=== PATIENT | male | born 1955 | race Caucasian/White ===

== ENCOUNTER 2020-06-05 13:10 | Emergency (ER) | payer MEDICARE, OTHER ==
[~2020-06-05] VITALS: Ht 177.8 cm; Wt 83.5 kg
[2020-06-05 13:54] LABS: Basophils # (auto) 0 10 ^3/uL (0-0.2); Basophils % (auto) 0.3 % (0.0-2.0); Eosinophils # (auto) 0.1 10 ^3/uL (0-0.8); Eosinophils % (auto) 0.7 % (0.0-7.0); Hematocrit 45.3 % (41.0-53.0); Hemoglobin 14.7 g/dL (13.5-17.5); Lymphocytes # (auto) 2.2 10 ^3/uL (0.4-5.4); Lymphocytes % (auto) 24.2 % (10.0-50.0); Mean Corpuscular Hemoglobin 29.7 pg (28.0-32.0); Mean Corpuscular Hgb Conc. 32.5 g/dL (32.0-36.0); Mean Corpuscular Volume 91.3 fL (80.0-100.0); Monocytes # (auto) 0.4 10 ^3/uL (0-1.3); Monocytes % (auto) 4.8 % (0.0-12.0); Neutrophils # (auto) 6.3 10 ^3/uL (1.6-8.6); Platelet Count (auto) 217 10^3/uL (140-450); Red Blood Cells 4.97 10^6/uL (4.5-5.90); Red Cell Distribution Width 14.1 % (11.8-14.3)
[2020-06-05 14:08] LABS: Albumin 3.3 g/dL (3.4-5.0); Calcium 8.8 mg/dL (8.5-10.1)
[2020-06-05] MEDS ORDERED: SODIUM CHLORIDE 0.9% 1,000 ML IV ONE (14:11)
[2020-06-05 14:12] LABS: BUN/Creatinine Ratio 13.9; Bilirubin, Total 0.7 mg/dL (0.2-1.0); Total Protein 6.4 g/dL (6.4-8.2)
[2020-06-05] MEDS ORDERED: MORPHINE SULFATE 4 MG/ML SYR/VIAL IV ONE (14:15)
[2020-06-05] MEDS ORDERED: METOCLOPRAMIDE HCL 5MG/ml INJ 2ml VIAL IV ONE (14:15)
[2020-06-05 15:04] LABS: Magnesium 2.2 mg/dL (1.6-2.6)
[2020-06-05 15:05] VITALS: BP 99/65
== END 2020-06-05 18:30 | disposition home or self-care (01) ==
LOC: ER 13:10
DX: K59.8 Other specified functional intestinal disorders (principal); M94.0 Chondrocostal junction syndrome [Tietze]; E11.9 Type 2 diabetes mellitus without complications; E44.1 Mild protein-calorie malnutrition; Z98.84 Bariatric surgery status
CPT/HCPCS: 36415; 71046; 74176; 80053; 83690; 83735; 84443; 85025; 96361; 96374; 96375; 99285; J2270; J2765; J7030; 93005

== ENCOUNTER 2020-12-24 06:58 | Inpatient (IN) | payer MEDICARE, OTHER ==
[~2020-12-24] VITALS: Ht 177.8 cm; Wt 84.9 kg
[~2020-12-24 06:58] MED LIST: ALLO100T PO; ATOR10TA52 PO; DULO20CA PO; FAMO-12 PO; LISI-646 PO; METH750T3 PO; METO-6 PO; OMEP20TA PO; PERCOT PO; PREG100C PO
[2020-12-24] MEDS ORDERED: HEPARIN SODIUM (PORCINE) 5000 UNITS/ML 1ML VIAL ONE (07:42)
[2020-12-24] MEDS ORDERED: fentaNYL CITRATE 100 MCG/2 ML VL ONE (07:42)
[2020-12-24] MEDS ORDERED: VERAPAMIL 2.5MG/ML INJ 2ML VIAL IV ONE (07:42)
[2020-12-24] MEDS ORDERED: ANGIOMAX 250 MG VIAL IV ONE (07:42)
[2020-12-24] MEDS ORDERED: SODIUM CHL 0.9% 0 ML ONE (07:43)
[2020-12-24] MEDS ORDERED: MIDAZOLAM HCL 1MG/1ML-2 ML VIAL ONE (07:43)
[2020-12-24] MEDS ORDERED: LIDOCAINE 2%HCL (LOCAL ANESTH.) INJ 20ML MDV ONE (07:43)
[2020-12-24] MEDS ORDERED: IODIXANOL 320MG/ML 100ML BTL IV ONE (07:43)
[2020-12-24] MEDS ORDERED: ACETAMINOPHEN 500 MG TAB PO PRN (08:45)
[2020-12-24] MEDS ORDERED: HYDROcodone-ACET 5/325MG TAB PO PRN (08:45)
[2020-12-24] MEDS ORDERED: ONDANSETRON HCL 4 MG/2 ML VIAL IV PRN ×2 (08:45→17:15)
[2020-12-24] MEDS ORDERED: MORPHINE SULF INJ 2 MG/ML SYRINGE 1ML IV PRN (14:30)
[2020-12-24] MEDS ORDERED: NITROGLYCERIN 0.4 MG SL TAB SL PRN (14:30)
[2020-12-24] MEDS ORDERED: LORazepam 2MG/ML-1ML VIAL IV ONE (15:45)
[2020-12-24 17:13] VITALS: BP 162/100
[2020-12-24] MEDS ORDERED: DOCUSATE SOD 100 MG CAP PO PRN (17:15)
[2020-12-24] MEDS ORDERED: ASPirin-EC 81 mg tab PO ONE (17:15)
[2020-12-24] MEDS ORDERED: ALBUTEROL SULF 2.5 MG/0.5ML(0.5%) NEB SOLN NEB PRN (17:15)
[2020-12-24] MEDS ORDERED: IPRATROPIUM BROM 0.5 MG/2.5ML INH SOL NEB PRN (17:15)
[2020-12-24 18:15] VITALS: BP 162/100
[2020-12-24 18:48] LABS: Basophils # (auto) 0.1 10 ^3/uL (0-0.2); Basophils % (auto) 0.6 % (0.0-2.0); Eosinophils # (auto) 0.3 10 ^3/uL (0-0.8); Eosinophils % (auto) 3.1 % (0.0-7.0); Hematocrit 43.3 % (41.0-53.0); Hemoglobin 14.7 g/dL (13.5-17.5); Lymphocytes # (auto) 2.9 10 ^3/uL (0.4-5.4); Lymphocytes % (auto) 31.9 % (10.0-50.0); Mean Corpuscular Hemoglobin 30.9 pg (28.0-32.0); Mean Corpuscular Volume 90.9 fL (80.0-100.0); Monocytes # (auto) 0.6 10 ^3/uL (0-1.3); Monocytes % (auto) 6.3 % (0.0-12.0); Neutrophils # (auto) 5.2 10 ^3/uL (1.6-8.6); Neutrophils % (auto) 58.1 % (37.0-80.0); Nucleated Red Blood Cells % 0.1 %; Platelet Count (auto) 202 10^3/uL (140-450); Red Blood Cells 4.76 10^6/uL (4.5-5.90); Red Cell Distribution Width 13.5 % (11.8-14.3)
[2020-12-24 19:08] LABS: Potassium 3.9 mmol/L (3.5-5.1)
[2020-12-24 19:17] LABS: Albumin 3.2 g/dL (3.4-5.0); BUN/Creatinine Ratio 14.7; Bilirubin, Total 0.6 mg/dL (0.2-1.0); Calcium 8.9 mg/dL (8.5-10.1); Total Protein 6.5 g/dL (6.4-8.2)
[2020-12-24 20:00] VITALS: BP 150/86
[2020-12-24 20:58] VITALS: BP 162/100
[2020-12-24 21:21] LABS: % Iron Saturation 22.6 % (20-55)
[2020-12-24 22:00] VITALS: BP 146/89
[2020-12-24] MEDS ORDERED: PREGABALIN 25 MG CAP PO SCH (22:00)
[2020-12-24] MEDS ORDERED: ATORVASTATIN 20 MG TAB PO SCH (22:00)
[2020-12-25] MEDS ORDERED: ASPirin-EC 81 mg tab PO SCH (10:00)
== END 2020-12-25 01:26 | disposition short-term general hospital (02) | DRG 66 ==
LOC: CATH 06:58 → TELE 06:59 → TELE-CENTR 16:32
PROVIDERS: ADMIT Internal Medicine; ATTEND Internal Medicine
PROC: 4A023N7 Measurement of Cardiac Sampling and Pressure, Left Heart, Percutaneous Approach (ICD-10-PCS; principal; 2020-12-24)
PROC: B211YZZ Fluoroscopy of Multiple Coronary Arteries using Other Contrast (ICD-10-PCS; 2020-12-24)
PROC: B215YZZ Fluoroscopy of Left Heart using Other Contrast (ICD-10-PCS; 2020-12-24)
DX: I63.9 Cerebral infarction, unspecified (principal); I25.119 Atherosclerotic heart disease of native coronary artery with unspecified angina pectoris; E11.9 Type 2 diabetes mellitus without complications; E78.5 Hyperlipidemia, unspecified; F17.200 Nicotine dependence, unspecified, uncomplicated; F32.9 Major depressive disorder, single episode, unspecified; G25.81 Restless legs syndrome; G47.00 Insomnia, unspecified; H53.461 Homonymous bilateral field defects, right side; H53.462 Homonymous bilateral field defects, left side; I10 Essential (primary) hypertension; J32.9 Chronic sinusitis, unspecified; Z79.82 Long term (current) use of aspirin; Z79.84 Long term (current) use of oral hypoglycemic drugs; Z79.899 Other long term (current) drug therapy; Z82.49 Family history of ischemic heart disease and other diseases of the circulatory system; Z83.3 Family history of diabetes mellitus; Z98.84 Bariatric surgery status; Z20.822 Contact with and (suspected) exposure to COVID-19
CPT/HCPCS: 36415; 70450; 70551; 71045; 80053; 80061; 82728; 83036; 83540; 83550; 85025; 93458; 93886; 94640; 99152; G0378; J2250; Q9967

== ENCOUNTER 2024-12-27 11:26 | Inpatient (IN) | payer MEDICARE, OTHER ==
[~2024-12-27] VITALS: Ht 177.8 cm; Wt 88.0 kg
[~2024-12-27 11:26] MED LIST changes: -LISI-646 PO; +LISI20TA56 PO; +METH-1182 PO; -METH750T3 PO
--- NOTE | 2024-12-27 11:40 | ED.PDOC ---
SOB-HPI HPI Comments 69 year old male presents to the ED with chief complaint of SOB. Patient reports that he has been experiencing SOB with associated cough for the past month. Patient relays that his PCP had prescribed him antibiotics, which relieved his symptoms temporarily, however, it has now come back again, worsening over time. Patient denies any chest pain, headache, fever, chills, hemoptysis, dizziness, or N/V. Time Seen by MD: 11:38 Reviewed notes: Nurses Notes, Medications, Allergies Information Source: Patient Mode of Arrival: Ambulatory Severity: Moderate Timing: Months Duration: Since onset Context: At Rest PE Risk Factors: None History of: None Prehospital treatment: None Modifying Factors: Nothing Associated Signs and Symptoms: Cough If cough with SOB: Productive Past Medical History PAST MEDICAL HISTORY: DM, HTN Surgical History: Denies all surgeries Family History Family History: Reviewed,noncontributory to illness Social History Smoker: Non-Smoker Alcohol: Denies ETOH Use Drugs: Marijuana Lives In: Home Constitutional: denies: chills, diaphoresis, fatigue, fever, malaise, sweats, weakness, others EENTM: denies: blurred vision, double vision, ear bleeding, ear discharge, ear drainage, ear pain, ear ringing, eye pain, eye redness, hearing loss, mouth pain, mouth swelling, nasal discharge, nose bleeding, nose congestion, nose pain, photophobia, tearing, throat pain, throat swelling, voice changes, others Respiratory: reports: cough, shortness of breath, SOB with excertion; denies: hemoptysis, orthopnea, SOB at rest, stridor, wheezing, others Cardiovascular: denies: chest pain, dizzy spells, diaphoresis, Dyspnea on exertion, edema, irregular heart beat, left arm pain, lightheadedness, palpitations, PND, syncope, others Gastrointestinal: denies: abdomen distended, abdominal pain, blood streaked bowels, constipated, diarrhea, dysphagia, difficulty swallowing, hematemesis, melena, nausea, poor appetite, poor fluid intake, rectal bleeding, rectal pain, vomiting, others Genitourinary: denies: burning, dysuria, flank pain, frequency, hematuria, incontinence, penile discharge, penile sore, pain, testicle pain, testicle swelling, urgency, others Neurological: denies: dizziness, fainting, headache, left sided numbness, left sided weakness, numbness, paresthesia, pre-existing deficit, right sided numbness, right sided weakness, seizure, speech problems, tingling, tremors, weakness, others Musculoskeletal: denies: back pain, gout, joint pain, joint swelling, muscle pain, muscle stiffness, neck pain, others Integumetry: denies: bruises, change in color, change in hair/nails, dryness, laceration, lesions, lumps, rash, wounds, others Allergic/Immunocompromised: denies: Difficulty Healing, Frequent Infections, Hives, Itching, others Hematologic/Lymphatic: denies: anemia, blood clots, easy bleeding, easy bruising, swollen glands, others Endocrine: denies: excessive hunger, excessive sweating, excessive thirst, excessive urination, flushing, intolerance to cold, intolerance to heat, unexplained weight gain, unexplained weight loss, others Psychiatric: denies: anxiety, bipolar disorder, depression, hopeless, panic disorder, schizophrenia, sleepless, suicidal, others All Other Systems: Reviewed and Negative Physical Exam General Appearance: Moderate Distress, No Apparent Distress, Normal HEENT: Normal ENT Inspection, PERRL/EOMI Neck: Full Range of Motion, Non-Tender, Normal, Normal Inspection Respiratory: Accessory Muscle Use, Chest Non-Tender, Other (Coarse breath sounds) Cardiovascular: No Edema, No JVD, No Murmur, No Gallop, Normal Peripheral Pulses, Regular Rate/Rhythm Breast Exam: Deferred Gastrointestinal: No Organomegaly, Non Tender, No Pulsatile Mass, Normal Bowel Sounds, Soft Genitalia: Deferred Pelvic: Deferred Rectal: Deferred Extremities: No calf tenderness, Normal capillary refill, Normal inspection, Normal range of motion, Non-tender, No pedal edema Musculoskeletal : Apperance: Normal Neurologic: Alert, convenience store clerk II-XII nml as Tested, No Motor Deficits, Normal Affect, Normal Mood, No Sensory Deficits Cerebellar Function: Normal Reflexes: Normal Skin: Dry, Normal Color, Warm Peripheral Pulses: 3+ Radial (R), 3+ Radial (L) Lymphatic: No Adenopathy Was a procedure done? Was a procedure done?: No Differential Dx Differential Diagnosis: Anxiety, Asthma, Bronchitis, CHF, COPD X-Ray, Labs, Meds, VS Vital Signs Date Time Temp Pulse Resp B/P (MAP) Pulse Ox O2 Delivery O2 Flow Rate FiO2 12/27/24 12:15 81 16 97 Room Air 12/27/24 12:15 97.9 81 16 125/92 (103) 97 97.9 12/27/24 11:56 20 96 Nasal Cannula* 2 28 12/27/24 11:52 98.5 95 20 164/113 (130) 95 12/27/24 11:42 93 Lab Test 12/27/24 12:06 Range/Units White Blood Count 6.5 4.4-10.8 10^3/uL Red Blood Count 4.63 4.5-5.90 10^6/uL Hemoglobin 14.5 13.5-17.5 g/dL Hematocrit 43.4 41.0-53.0 % Mean Corpuscular Volume 93.9 80.0-100.0 fL Mean Corpuscular Hemoglobin 31.4 28.0-32.0 pg Mean Corpuscular Hemoglobin Concent 33.4 32.0-36.0 g/dL Red Cell Distribution Width 12.8 11.8-14.3 % Platelet Count 249 140-450 10^3/uL Mean Platelet Volume 6.7 L 6.9-10.8 fL Neutrophils (%) (Auto) 50.1 37.0-80.0 % Lymphocytes (%) (Auto) 30.6 10.0-50.0 % Monocytes (%) (Auto) 5.7 0.0-12.0 % Eosinophils (%) (Auto) 13.0 H 0.0-7.0 % Basophils (%) (Auto) 0.6 0.0-2.0 % Neutrophils # (Auto) 3.2 1.6-8.6 10 ^3/uL Lymphocytes # (Auto) 2.0 0.4-5.4 10 ^3/uL Monocytes # (Auto) 0.4 0-1.3 10 ^3/uL Eosinophils # (Auto) 0.8 0-0.8 10 ^3/uL Basophils # (Auto) 0 0-0.2 10 ^3/uL Nucleated Red Blood Cells 0.1 % Sodium Level Pending Potassium Level Pending Chloride Level Pending Carbon Dioxide Level Pending Anion Gap Pending Blood Urea Nitrogen Pending Creatinine Pending Glomerular Filtration Rate Calc Pending BUN/Creatinine Ratio Pending Serum Glucose Pending Calcium Level Pending Troponin I High Sensitivity Pending Current Medications Medications (Trade) Dose Ordered Sig/Cassia Route Start Time Stop Time Status Last Admin Methylprednisolone Sodium Succinate (Solu Medrol) 125 mg ONCE ONCE IV 12/27/24 11:45 12/27/24 11:46 DC 12/27/24 12:25 Azithromycin 250 ml @ 125 mls/hr ONCE ONCE IV 12/27/24 11:45 12/27/24 13:44 12/27/24 12:26 Ceftriaxone Sodium 50 ml @ 100 mls/hr ONCE ONCE IV 12/27/24 11:45 12/27/24 12:14 DC 12/27/24 12:26 Patient alert. Complaining of shortness a breath. Vitals stable. Answering questions. Able to complete a sentence without coughing. Inflammation in the upper airway. Was given steroid. Was given Rocephin. Was given azithromycin. WBC within normal limits. Possible pneumonitis. Possible pneumonia. Explained to the patient. Continue monitoring. Time of 1ST Reevaluation: 12:38 Reevaluation 1ST: Unchanged Patient Education/Counseling: Diagnosis, Treatment Family Education/Counseling: No Family Present Departure 1 Departure Time of Disposition: 12:33 Impression: Primary Impression: Acute respiratory distress Additional Impression: Pneumonitis Disposition: ADMITTED INPATIENT Admit to: Med Surg Condition: Guarded Critical Care Note Critical Care Time?: Yes (45 min-critical care time only) Stability Stability form required: No Heart Score Heart Score: Heart Score Response (Comments) Value History N/A 0 EKG N/A 0 Age N/A 0 Risk Factors N/A 0 Troponin N/A 0 Total 0 I personally scribed for JOLENE DIAZ MD ([email or web address]) on 12/27/24 at 11:40. Electronically submitted by Emmanuel Bishop ([email or web address]). JOLENE DIAZ MD Dec 27, 2024 11:40
--- NOTE | 2024-12-27 12:05 | DVH ---
CHEST RADIOGRAPH Indication: sob Technique: Single frontal view of the chest was obtained COMPARISON: CHEST XRAY 1 VIEW on DOS: 12/24/20 FINDINGS: Lines and Tubes: None Lungs: Clear Pleura: No effusion. No pneumothorax. Cardiomediastinal contours: Unremarkable Bones: Unremarkable IMPRESSION: No acute disease.
[2024-12-27 12:24] LABS: Basophils # (auto) 0 10 ^3/uL (0-0.2); Basophils % (auto) 0.6 % (0.0-2.0); Eosinophils # (auto) 0.8 10 ^3/uL (0-0.8); Hematocrit 43.4 % (41.0-53.0); Hemoglobin 14.5 g/dL (13.5-17.5); Lymphocytes % (auto) 30.6 % (10.0-50.0); Mean Corpuscular Hemoglobin 31.4 pg (28.0-32.0); Mean Corpuscular Hgb Conc. 33.4 g/dL (32.0-36.0); Mean Corpuscular Volume 93.9 fL (80.0-100.0); Monocytes # (auto) 0.4 10 ^3/uL (0-1.3); Monocytes % (auto) 5.7 % (0.0-12.0); Neutrophils # (auto) 3.2 10 ^3/uL (1.6-8.6); Neutrophils % (auto) 50.1 % (37.0-80.0); Nucleated Red Blood Cells % 0.1 %; Platelet Count (auto) 249 10^3/uL (140-450); Red Blood Cells 4.63 10^6/uL (4.5-5.90); Red Cell Distribution Width 12.8 % (11.8-14.3); White Blood Cell 6.5 10^3/uL (4.4-10.8)
[2024-12-27] MEDS: methylPREDNISolone SOD SUCC 125 MG/2 ML VL IV ONE (12:25)
[2024-12-27] MEDS: cefTRIAXone 1GM/50ML D5W 50 ML IV ONE (12:26)
[2024-12-27] MEDS: AZITHROMYCIN 500MG/ 250ML 250 ML IV ONE (12:26)
[2024-12-27 12:30] VITALS: PULSE 99; RESP 20; O2SAT 95
--- NOTE | 2024-12-27 12:33 | ECG ---
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
[2024-12-27 12:44] LABS: Chloride 104 mmol/L (98-107); Potassium 4.6 mmol/L (3.5-5.1); Sodium 142 mmol/L (136-145)
[2024-12-27 12:45] LABS: Anion Gap 7 (5-15); Calcium 9.7 mg/dL (8.7-10.4)
[2024-12-27 12:49] LABS: Carbon Dioxide 31 mmol/L (20-31)
[2024-12-27 12:50] LABS: BUN/Creatinine Ratio 12.5 (10.0-20.0); Blood Urea Nitrogen 15 mg/dL (9-23)
[2024-12-27 12:51] LABS: Glucose 128 mg/dL (74-106)
[2024-12-27] MEDS ORDERED: TAMS0.4C39 PO (16:41)
[2024-12-27] MEDS ORDERED: ATOR20TA50 PO (16:41)
[2024-12-27] MEDS ORDERED: CARV6.2551 PO (16:41)
[2024-12-27] MEDS ORDERED: DOCUSATE SOD 100 MG CAP PO PRN (16:45)
[2024-12-27] MEDS ORDERED: ONDANSETRON HCL 4 MG/2 ML VIAL IV PRN (16:45)
--- NOTE | 2024-12-27 17:36 | DVHHP2 ---
History of Present Illness Reason for Visit: Shortness of breath History of Present Illness Emmett Sharma is a 69-year-old male with past medical history of hypertension, hyperlipidemia, and gout who came in for shortness of breath. Patient states he began getting sick with flu like symptoms the beginning of November. He went to his primary care provider the beginning of December due to symptoms persisting. He was given a Z-pack and states at first he was feeling better then his symptoms worsened prompting him to come to the hospital. Patient states he has a productive cough, and shortness of breath. Denies any fevers, nausea, vomiting, or diarrhea. Patient's O2 sats on RA were in the 80's on arrival. he was placed on 2L NC and improved to mid 90's. On assessment patient is able to speak in full sentences, but he has a productive cough, with wheezing and rhonchi in bilateral lung hernandez. Patient has a history of diabetes, but had gastri bypass years ago, lost 70lbs and was able to stop all his diabetic medications. He recently went on Ozempic for weight loss. Cardiovascular: HTN, hyperipidemia Past Surgical History: Other (gastric bypass) Smoke: No ALCOHOL: occassional Drugs: None Lives: with Family Review of Systems Constitutional: No: Fever, Chills, Sweats, Weakness, Malaise, Other Eyes: No: Pain, Vision change, Conjunctivae inflammation, Eyelid inflammation, Other, Redness ENT: No: Ear pain, Ear discharge, Nose pain, Nose discharge, Nose congestion, Mouth pain, Mouth swelling, Throat pain, Throat swelling, Other Respiratory: Cough, Shortness of breath, SOB with excertion, Wheezing, Pleuritic Pain, Sputum; No: Dry, Hemoptysis, Wheezing, Other Cardiovascular: No: Chest Pain, Palpitations, Orthopnea, Paroxysmal Noc. Dyspnea, Edema, Lt Headedness, Other Gastrointestinal: No: Nausea, Vomiting, Abdominal Pain, Diarrhea, Constipation, Melena, Hematochezia, Other Genitourinary: No Dysuria, No Frequency, No Incontinence, No Hematuria, No Retention, No Other Musculoskeletal: No: other, neck pain, shoulder pain, arm pain, back pain, hand pain, leg pain, foot pain Skin: No: Rash, Lesions, Jaundice, Bruising, Other Neurological: No: Weakness, Numbness, Incoordination, Change in speech, Confusion, Seizures, Other Allergies: Coded Allergies: NO KNOWN ALLERGIES (Unverified , 06/05/20) Medications Current Medications Medications Dose Ordered Sig/Cassia Route Start Time Stop Time Status Last Admin Dose Admin Allopurinol 100 mg BID PO 12/27/24 22:00 UNV Patient Own Medication 30 mg DAILY PO 12/28/24 10:00 UNV Patient Own Medication 750 mg BID PO 12/27/24 22:00 UNV Patient Own Medication 20 mg QID PO 12/27/24 18:00 UNV Patient Own Medication 100 mg TID PO 12/27/24 22:00 UNV Atorvastatin Calcium 20 mg HS PO 12/27/24 22:00 UNV Patient Own Medication 1 tab BID PO 12/27/24 22:00 UNV Ipratropium [place] 0.5 mg Q6HWA NEB 12/27/24 18:00 Albuterol 2.5 mg Q6HWA NEB 12/27/24 18:00 Methylprednisolone Sodium Succinate 40 mg BID IV 12/27/24 22:00 Azithromycin 250 ml @ 125 mls/hr DAILY IV 12/28/24 10:00 Ceftriaxone Sodium 50 ml @ 100 mls/hr DAILY@09 IV 12/28/24 09:00 Sodium Chloride 10 ml Q8HR IV 12/27/24 22:00 Acetaminophen/ Hydrocodone Bitart 1 tab Q4HP PRN PO 12/27/24 16:45 Ondansetron HCl 4 mg Q4HP PRN IV 12/27/24 16:45 Docusate Sodium 100 mg BIDPRN PRN PO 12/27/24 16:45 Acetaminophen 650 mg Q6HP PRN PO 12/27/24 16:45 Exam Vital Signs Vital Signs Date Time Temp Pulse Resp B/P (MAP) Pulse Ox O2 Delivery O2 Flow Rate FiO2 12/27/24 12:30 99 20 95 Nasal Cannula* 2 28 12/27/24 12:15 97.9 125/92 (103) 97.9 General Appearance: Alert, Oriented X3, Cooperative, moderate distress HEENT: Atraumatic, PERRLA Respiratory: Other (bilateral wheezing ) Cardiovascular: Regular rate, Normal S1, Normal S2, No murmurs Abdominal: Normal bowel sounds, Soft, No tenderness, No hepatospenomegaly Extremities: No clubbing, No cyanosis, No edema, Normal pulses Skin: No rashes, No breakdown, No significant lesion Neuro: Normal gait, Normal speech, Strength at 5/5 X4 ext Psych/Mental Status: Mental status NL, Mood NL Labs/Xrays Labs Test 12/27/24 12:06 Range/Units White Blood Count 6.5 4.4-10.8 10^3/uL Red Blood Count 4.63 4.5-5.90 10^6/uL Hemoglobin 14.5 13.5-17.5 g/dL Hematocrit 43.4 41.0-53.0 % Mean Corpuscular Volume 93.9 80.0-100.0 fL Mean Corpuscular Hemoglobin 31.4 28.0-32.0 pg Mean Corpuscular Hemoglobin Concent 33.4 32.0-36.0 g/dL Red Cell Distribution Width 12.8 11.8-14.3 % Platelet Count 249 140-450 10^3/uL Mean Platelet Volume 6.7 L 6.9-10.8 fL Neutrophils (%) (Auto) 50.1 37.0-80.0 % Lymphocytes (%) (Auto) 30.6 10.0-50.0 % Monocytes (%) (Auto) 5.7 0.0-12.0 % Eosinophils (%) (Auto) 13.0 H 0.0-7.0 % Basophils (%) (Auto) 0.6 0.0-2.0 % Neutrophils # (Auto) 3.2 1.6-8.6 10 ^3/uL Lymphocytes # (Auto) 2.0 0.4-5.4 10 ^3/uL Monocytes # (Auto) 0.4 0-1.3 10 ^3/uL Eosinophils # (Auto) 0.8 0-0.8 10 ^3/uL Basophils # (Auto) 0 0-0.2 10 ^3/uL Nucleated Red Blood Cells 0.1 % Sodium Level 142 136-145 mmol/L Potassium Level 4.6 3.5-5.1 mmol/L Chloride Level 104 98-107 mmol/L Carbon Dioxide Level 31 20-31 mmol/L Anion Gap 7 5-15 Blood Urea Nitrogen 15 9-23 mg/dL Creatinine 1.20 0.700-1.30 mg/dL Glomerular Filtration Rate Calc 65 >90 mL/min BUN/Creatinine Ratio 12.5 10.0-20.0 Serum Glucose 128 H 74-106 mg/dL Calcium Level 9.7 8.7-10.4 mg/dL Troponin I High Sensitivity 3 L </=54 ng/L CHEST RADIOGRAPH FINDINGS: Lines and Tubes: None Lungs: Clear Pleura: No effusion. No pneumothorax. Cardiomediastinal contours: Unremarkable Bones: Unremarkable IMPRESSION: No acute disease. Assessment/Plan Assessment/Plan Assessment: Acute hypoxic respiratory failure, Hypertension, Hyperlipidemia, Gout, Plan: Admit to Med-Surg, IV antibiotics, Breathing treatments, IV steroids, Supplemental oxygen as needed, Home medications reconciled, Plan discussed with: Patient My Orders Orders - MERRY TIDWELL [employer]IST Procedure Category Date Status Time Allopurinol Tablet PHA 12/27/24 Logged (Zyloprim Tablet) 22:00 (Nf) Duloxetine Hcl PHA 12/28/24 Logged (Cymbalta) 10:00 (Nf) Methocarbamol PHA 12/27/24 Logged 22:00 (Nf) Omeprazole (Gnp PHA 12/27/24 Logged Omeprazole) 18:00 (Nf) Pregabalin PHA 12/27/24 Logged (Lyrica) 22:00 Atorvastatin (Lipitor) PHA 12/27/24 Logged 22:00 (Nf) Carvedilol PHA 12/27/24 Logged 22:00 Ipratropium Medneb PHA 12/27/24 In Process (Atrovent Medneb) 18:00 Albuterol Medneb PHA 12/27/24 In Process (Ventolin Medneb) 18:00 Methylprednisolone PHA 12/27/24 In Process Sod Succ (Solu Medrol 22:00 Azithromycin 500mg/ PHA 12/28/24 In Process 250ml (Zithromax 50 10:00 Ceftriaxone 1gm/50ml PHA 12/28/24 In Process D5w (Rocephin) 09:00 Code Status CODE 12/27/24 Verified 16:43 Sodium Chloride Lock PHA 12/27/24 In Process (Saline Lock Ns) 22:00 Hydrocodone-Acet PHA 12/27/24 In Process 5/325mg Tab ([place] 16:45 Ondansetron Hcl PHA 12/27/24 In Process (Zofran) 16:45 Docusate Sodium PHA 12/27/24 In Process Capsule (Colace 16:45 Complete Blood Count LAB 12/28/24 Verified 04:00 Comprehensive LAB 12/28/24 Verified Metabolic Panel 04:00 Cardiac DIET 12/27/24 Transmitted Diet-2gna,Lofat,Lochol Dinner Condition: Serious DEVIN 12/27/24 In Process 16:43 Acetaminophen Tablet PHA 12/27/24 In Process (Tylenol Tablet) 16:45 Admit ADMIT 12/27/24 Verified 16:43 Date of Service: Dec 27, 2024 Billing Provider: MERRY TIDWELL Common Visit Codes: [id number] INP/OBS CARE (MOD) MERRY TIDWELL Dec 27, 2024 17:36
[2024-12-27] MEDS: IPRATROPIUM BROM 0.5 MG/2.5ML INH SOL NEB SCH (17:47)
[2024-12-27] MEDS: ALBUTEROL SULF 2.5 MG/0.5ML(0.5%) NEB SOLN NEB SCH (17:47)
[2024-12-27 18:50] VITALS: BP 140/79; PULSE 111; RESP 18; TEMP 98.3; O2SAT 92
[2024-12-27 21:00] VITALS: BP 163/98; PULSE 111; RESP 20; TEMP 98.4; O2SAT 92
[2024-12-27] MEDS: methylPREDNISolone SOD SUCC 40 MG/ML VL IV SCH (21:46)
[2024-12-27] MEDS: SODIUM CHLOR 0.9% PF (SALINE LOCK) 10ML VIAL/SYR IV SCH (21:46)
[2024-12-27] MEDS: ATORVASTATIN 20 MG TAB PO SCH (22:00)
[2024-12-27 23:00] VITALS: BP 127/74; PULSE 117; RESP 22; TEMP 98.6; O2SAT 94
[2024-12-27 23:40] VITALS: BP 154/72; PULSE 110; RESP 19; TEMP 97.9; O2SAT 96
[2024-12-27] MEDS: ALLOPURINOL 100 MG TAB PO SCH (23:54)
[2024-12-28] VITALS (18 sets, daily range): BP systolic 133–159; BP diastolic 54–105; PULSE 85–115; RESP 18–20; TEMP 97.5–98.6; O2SAT 92–99
[2024-12-28] MEDS: ACETAMINOPHEN 325 MG TAB PO PRN (01:50)
[2024-12-28] MEDS: PREGABALIN 25 MG CAP PO SCH (06:00)
[2024-12-28 06:46] LABS: Basophils # (auto) 0 10 ^3/uL (0-0.2); Basophils % (auto) 0.1 % (0.0-2.0); Eosinophils # (auto) 0 10 ^3/uL (0-0.8); Hematocrit 43.6 % (41.0-53.0); Hemoglobin 14.1 g/dL (13.5-17.5); Lymphocytes # (auto) 1.1 10 ^3/uL (0.4-5.4); Lymphocytes % (auto) 13.8 % (10.0-50.0); Mean Corpuscular Hemoglobin 30.7 pg (28.0-32.0); Mean Corpuscular Hgb Conc. 32.5 g/dL (32.0-36.0); Mean Corpuscular Volume 94.5 fL (80.0-100.0); Monocytes # (auto) 0.2 10 ^3/uL (0-1.3); Monocytes % (auto) 2.9 % (0.0-12.0); Neutrophils # (auto) 6.9 10 ^3/uL (1.6-8.6); Neutrophils % (auto) 83.2 % (37.0-80.0); Nucleated Red Blood Cells % 0.1 %; Platelet Count (auto) 254 10^3/uL (140-450); Red Blood Cells 4.61 10^6/uL (4.5-5.90); White Blood Cell 8.3 10^3/uL (4.4-10.8)
[2024-12-28 07:03] LABS: Alanine Aminotransferase 24 U/L (7-40); Alkaline Phosphatase 112 U/L (46-116); Anion Gap 11 (5-15); Aspartate Aminotransferase 16 U/L (13-40); Bilirubin, Total 0.3 mg/dL (0.2-1.0); Blood Urea Nitrogen 18 mg/dL (9-23); Calcium 9.9 mg/dL (8.7-10.4); Carbon Dioxide 24 mmol/L (20-31); Chloride 104 mmol/L (98-107); Potassium 4.5 mmol/L (3.5-5.1); Sodium 139 mmol/L (136-145); Total Protein 6.2 g/dL (5.7-8.2)
[2024-12-28 07:05] LABS: Glucose 178 mg/dL (74-106)
[2024-12-28] MEDS: cefTRIAXone 1GM/50ML D5W 50 ML IV SCH (09:24)
[2024-12-28] MEDS: METHOCARBAMOL 500 MG TAB PO SCH (09:26)
[2024-12-28] MEDS: TAMSULOSIN HYDROCHLORIDE 0.4 MG CAP PO SCH (09:28)
[2024-12-28] MEDS: PANTOPRAZOLE 40 MG TAB PO SCH (09:28)
[2024-12-28] MEDS: DULoxetine HCL 30 MG CAP PO SCH (09:29)
[2024-12-28] MEDS: CARVEDILOL 3.125 MG TAB PO SCH (09:30)
[2024-12-28] MEDS: AZITHROMYCIN 500MG/ 250ML 250 ML IV SCH (10:00)
--- NOTE | 2024-12-28 12:22 | DVHPN2 ---
Reviewed: Care Plan, H&P, Labs, Medications, Previous Orders, Radiology Changes from previous H/P or p: No Changes Eyes: No Pain, No Vision change, No Conjunctivae inflammation, No Eyelid inflammation, No Other, No Redness ENT: No Ear pain, No Ear discharge, No Nose pain, No Nose discharge, No Nose congestion, No Mouth pain, No Mouth swelling, No Throat pain, No Throat swelling, No Other Cardiovascular: No Chest Pain, No Palpitations, No Orthopnea, No Paroxysmal Noc. Dyspnea, No Edema, No Lt Headedness, No Other Respiratory: Cough; No Dry; Shortness of breath, SOB with excertion, Wheezing; No Hemoptysis; Pleuritic Pain, Sputum; No Other Gastrointestinal: No Nausea, No Vomiting, No Abdominal Pain, No Diarrhea, No Constipation, No Melena, No Hematochezia, No Other Genitourinary: No Dysuria, No Frequency, No Incontinence, No Hematuria, No Retention, No Other Musculoskeletal: No other, No neck pain, No shoulder pain, No arm pain, No back pain, No hand pain, No leg pain, No foot pain Skin: No Rash, No Lesions, No Jaundice, No Bruising, No Other Objective Vitals Vital Signs Date Time Temp Pulse Resp B/P (MAP) Pulse Ox O2 Delivery O2 Flow Rate FiO2 12/28/24 11:50 92 18 92 12/28/24 09:30 159/102 12/28/24 08:42 98.3 98.3 12/28/24 07:25 Nasal Cannula 2.0 12/28/24 07:25 28 Intake/Output Intake and Output 12/28/24 07:00 Intake Total 750 ml Balance 750 ml Intake Oral 750 ml Medications Current Medications Medications Dose Ordered Sig/Cassia Route Start Time Stop Time Status Last Admin Dose Admin Allopurinol 100 mg BID PO 12/27/24 22:00 12/28/24 09:26 100 MG Duloxetine HCl 30 mg DAILY PO 12/28/24 10:00 12/28/24 09:29 30 MG Methocarbamol 750 mg BID PO 12/28/24 10:00 12/28/24 09:26 750 MG Pantoprazole Sodium 40 mg DAILY PO 12/28/24 10:00 12/28/24 09:28 40 MG Pregabalin 100 mg TID PO 12/28/24 06:00 Atorvastatin Calcium 20 mg HS PO 12/27/24 22:00 12/27/24 22:00 20 MG Carvedilol 6.25 mg BID PO 12/28/24 10:00 12/28/24 09:30 6.25 MG Ipratropium [place] 0.5 mg Q6HWA NEB 12/27/24 18:00 12/28/24 11:50 0.5 MG Albuterol 2.5 mg Q6HWA NEB 12/27/24 18:00 12/28/24 11:50 2.5 MG Methylprednisolone Sodium Succinate 40 mg BID IV 12/27/24 22:00 12/28/24 09:24 40 MG Azithromycin 250 ml @ 125 mls/hr DAILY IV 12/28/24 10:00 12/28/24 10:00 125 MLS/HR Ceftriaxone Sodium 50 ml @ 100 mls/hr DAILY@09 IV 12/28/24 09:00 12/28/24 09:24 100 MLS/HR Sodium Chloride 10 ml Q8HR IV 12/27/24 22:00 12/28/24 06:01 10 ML Acetaminophen/ Hydrocodone Bitart 1 tab Q4HP PRN PO 12/27/24 16:45 Ondansetron HCl 4 mg Q4HP PRN IV 12/27/24 16:45 Docusate Sodium 100 mg BIDPRN PRN PO 12/27/24 16:45 Acetaminophen 650 mg Q6HP PRN PO 12/27/24 16:45 12/28/24 01:50 650 MG Tamsulosin HCl 0.4 mg DAILY PO 12/28/24 10:00 12/28/24 09:28 0.4 MG Laboratory Results Laboratory Tests 12/28/24 05:59 Chemistry Test 12/28/24 05:59 Albumin 4.0 g/dL (3.2-4.8) Calcium Level 9.9 mg/dL (8.7-10.4) Total Protein 6.2 g/dL (5.7-8.2) LFT Test 12/28/24 05:59 Alanine Aminotransferase (ALT) 24 U/L (7-40) Alkaline Phosphatase 112 U/L (46-116) Aspartate Amino Transferase (AST) 16 U/L (13-40) Total Bilirubin 0.3 mg/dL (0.2-1.0) Labs and/or images reviewed: Labs reviewed by me, Image(s) reviewed by me Assessment/Plan Assessment/Plan Acute hypoxic respiratory failure, oxygen by nasal cannula Possible community-acquired pneumonia: Azithromycin Solu-Medrol consult for pulmonology Dr. Diaz Congestive heart failure: Consult for Hypertension, Coreg Hyperlipidemia, : Lipitor Gout, BPH: Flomax Depression: Cymbalta History of gastric bypass surgery On Ozempic for weight loss Ordered flu test Magalie test D-dimer Morbid obesity weight 82 kg Time spent 65 minutes Condition guarded Patient is full code Advanced care planning time 20 minutes Plan discussed with: Patient Date of Service: Dec 28, 2024 Billing Provider: JF ORTEGA MD Common Visit Codes: [id number] CARE 30-74 MIN JF ORTEGA MD Dec 28, 2024 12:22
--- NOTE | 2024-12-28 13:58 | DVHINCON2 ---
Date Seen: Dec 28, 2024 Referring Physician MD Osei Reason for Consultation Shortness of breath, rule out CHF History of Present Illness This is a 69-year-old male patient who presents to the emergency room with chief complaint of worsening shortness of breath. The patient reports that he initially began experiencing a cough on November 06 2024 after coming back from [place]. He reports that the cough was persistent so he finally followed up with a primary doctor on November 20, where he was prescribed steroids and antibiotics. Since then, the patient has been progressively getting worse and having worsening shortness of breath. He describes dyspnea on exertion, orthopnea, and cough. He also describes a nonproductive dry cough. Cardiology has been consulted at this time to rule out congestive heart failure. Initial twelve lead electrocardiogram reveals normal sinus rhythm with artifact seen in multiple leads. Initial troponin level was negative. No BNP was obtained at time of admission. Significant past medical history includes hypertension, dyslipidemia, CVA, type 2 diabetes mellitus, benign prostatic hyperplasia, gout, depression, skin cancer, alcohol use, and previous tobacco use. Of note, the patient was seen at this facility on 12/24/20 where he underwent a coronary angiogram with left heart catheterization and was found to have mild coronary artery disease and no catheter based intervention was deemed necessary at that time. Past Medical History Past medical history reviewed. No other significant than mentioned above. Past Surgical History Gastric bypass in 2008 Gastric bypass revision in 2022 Family History: Colon cancer G8 MOTHER FH: heart disease G8 FATHER Family History Family history reviewed. Social History Patient has a five pack-year history, quit smoking approximately 27 years ago Patient denies any illicit drug use Patient reports daily beer intake approximately 2-4 beers daily Allergies: Coded Allergies: NO KNOWN ALLERGIES (Unverified , 06/05/20) Home Meds Reported Medications Tamsulosin Hcl (Tamsulosin Hcl) 0.4 Mg Cap, 0.4 MG PO DAILY 12/27/24 Carvedilol (Carvedilol) 6.25 Mg Tab, 1 TAB PO BID 12/27/24 Atorvastatin Calcium (ATORVASTATIN CALCIUM) 20 Mg Tab, 1 TAB PO HS 12/27/24 Oxycodone W/ Acetaminophen (Percocet 5/325MG) 1 Tab Tb, 1 TAB PO QIDPRN PRN for PAIN SCALE 1 THRU 6 12/19/20 Methocarbamol (Methocarbamol) 750 Mg Tab, 750 MG PO BID 12/19/20 Famotidine (Famotidine) 20 Mg Tab, 20 MG PO BID 12/19/20 Pregabalin (Lyrica) 100 Mg Cap, 100 MG PO TID 12/19/20 Duloxetine Hcl (Cymbalta) 20 Mg Cap, 30 MG PO DAILY, CAP 12/19/20 Metoprolol Succinate (Toprol Xl) 50 Mg Tab, 100 MG PO DAILY 12/19/20 Lisinopril (Lisinopril) 20 Mg Tab, 20 MG PO DAILY 12/19/20 Allopurinol (Allopurinol) 100 Mg Tab, 100 MG PO BID 12/19/20 Omeprazole (Gnp Omeprazole) 20 Mg Tab, 20 MG PO QID 12/19/20 Discontinued Reported Medications Atorvastatin Calcium (ATORVASTATIN CALCIUM) 10 Mg Tab, 10 MG PO DAILY 12/19/20 Home Meds Home medications reviewed. Current Medications Current Medications Medications (Trade) Dose Ordered Sig/Cassia Route PRN Reason Start Time Stop Time Status Last Admin Allopurinol (Zyloprim Tablet) 100 mg BID PO 12/27/24 22:00 12/28/24 09:26 Duloxetine HCl (Cymbalta Capsule) 30 mg DAILY PO 12/28/24 10:00 12/28/24 09:29 Methocarbamol (Robaxin) 750 mg BID PO 12/28/24 10:00 12/28/24 09:26 Pantoprazole Sodium (Protonix Tablet) 40 mg DAILY PO 12/28/24 10:00 12/28/24 09:28 Pregabalin (Lyrica Capsule) 100 mg TID PO 12/28/24 06:00 Atorvastatin Calcium (Lipitor) 20 mg HS PO 12/27/24 22:00 12/27/24 22:00 Carvedilol (Coreg Tablet) 6.25 mg BID PO 12/28/24 10:00 12/28/24 09:30 Ipratropium [place] (Atrovent Medneb) 0.5 mg Q6HWA NEB 12/27/24 18:00 12/28/24 11:50 Albuterol (Ventolin Medneb) 2.5 mg Q6HWA NEB 12/27/24 18:00 12/28/24 11:50 Methylprednisolone Sodium Succinate (Solu Medrol) 40 mg BID IV 12/27/24 22:00 12/28/24 09:24 Azithromycin 250 ml @ 125 mls/hr DAILY IV 12/28/24 10:00 12/28/24 10:00 Ceftriaxone Sodium 50 ml @ 100 mls/hr DAILY@09 IV 12/28/24 09:00 12/28/24 09:24 Sodium Chloride (Saline Lock Ns) 10 ml Q8HR IV 12/27/24 22:00 12/28/24 06:01 Acetaminophen/ Hydrocodone Bitart ([place] 5/325MG Tab) 1 tab Q4HP PRN PO MODERATE PAIN (4-6 PAIN SCALE) 12/27/24 16:45 Ondansetron HCl (Zofran) 4 mg Q4HP PRN IV NAUSEA / VOMITING 12/27/24 16:45 Docusate Sodium (Colace Capsule) 100 mg BIDPRN PRN PO FOR CONSTIPATION 12/27/24 16:45 Acetaminophen (Tylenol Tablet) 650 mg Q6HP PRN PO PAIN SCALE 1-3 OR TEMP>100.4 12/27/24 16:45 12/28/24 01:50 Tamsulosin HCl (Flomax) 0.4 mg DAILY PO 12/28/24 10:00 12/28/24 09:28 Guaifenesin/ Dextromethorphan (Robitussin-Dm Liquid) 15 ml Q8HR PRN PO FOR COUGH 12/28/24 12:30 UNV Review of Systems Constitutional: No symptom reported Ears, Nose, & Throat: No symptom reported Eyes: No symptom reported Neurological: No symptoms reported Pulmonary/Respiratory: Shortness of breath, cough Cardiovascular: No symptom reported Gastrointestinal: No symptom reported Genitourinary: No symptom reported Musculoskeletal: No symptom reported Skin: No symptom reported Psychiatric: No symptom reported Endocrine: No symptom reported Hematologic/Lymphatic: No symptom reported Vital Signs Vital Signs Date Time Temp Pulse Resp B/P (MAP) Pulse Ox O2 Delivery O2 Flow Rate FiO2 12/28/24 13:06 98.6 94 18 154/105 (121) 95 98.6 12/28/24 07:25 Nasal Cannula 2.0 12/28/24 07:25 28 Physical Exam General Appearance: Cooperative. Well-developed. Well-nourished. No acute distress. Pulmonary/Respiratory: Coarse throughout. Expiratory wheezes noted Cardiovascular/Chest: Regular rate and rhythm. Peripheral Pulses: 2+ Radial (R). 2+ Radial (L). 2+ Pedal (R). 2+ Pedal (L) Abdominal Exam: Normal bowel sounds. Ankle Exam: Negative ankle edema Lower extremities: Negative lower extremity edema Neuro/Mental Status: A/OX4, coherent. Thoughts/Psych: Normal thought pattern. Appropriate mood and affect. Good judgment and insight. Appearance: No acute distress. Skin Exam: Normal inspection. Normal color. Warm and dry. Labs/Diagnostic Data Labs Test 12/28/24 05:59 12/27/24 12:06 Range/Units White Blood Count 8.3 # 4.4-10.8 10^3/uL Red Blood Count 4.61 4.5-5.90 10^6/uL Hemoglobin 14.1 13.5-17.5 g/dL Hematocrit 43.6 41.0-53.0 % Mean Corpuscular Volume 94.5 80.0-100.0 fL Mean Corpuscular Hemoglobin 30.7 28.0-32.0 pg Mean Corpuscular Hemoglobin Concent 32.5 32.0-36.0 g/dL Red Cell Distribution Width 13.0 11.8-14.3 % Platelet Count 254 140-450 10^3/uL Mean Platelet Volume 7.0 6.9-10.8 fL Neutrophils (%) (Auto) 83.2 H 37.0-80.0 % Lymphocytes (%) (Auto) 13.8 10.0-50.0 % Monocytes (%) (Auto) 2.9 0.0-12.0 % Eosinophils (%) (Auto) 0.0 0.0-7.0 % Basophils (%) (Auto) 0.1 0.0-2.0 % Neutrophils # (Auto) 6.9 1.6-8.6 10 ^3/uL Lymphocytes # (Auto) 1.1 0.4-5.4 10 ^3/uL Monocytes # (Auto) 0.2 0-1.3 10 ^3/uL Eosinophils # (Auto) 0 0-0.8 10 ^3/uL Basophils # (Auto) 0 0-0.2 10 ^3/uL Nucleated Red Blood Cells 0.1 % Sodium Level 139 136-145 mmol/L Potassium Level 4.5 3.5-5.1 mmol/L Chloride Level 104 98-107 mmol/L Carbon Dioxide Level 24 20-31 mmol/L Anion Gap 11 5-15 Blood Urea Nitrogen 18 9-23 mg/dL Creatinine 1.20 0.700-1.30 mg/dL Glomerular Filtration Rate Calc 65 >90 mL/min BUN/Creatinine Ratio 15.0 10.0-20.0 Serum Glucose 178 H 74-106 mg/dL Calcium Level 9.9 8.7-10.4 mg/dL Total Bilirubin 0.3 0.2-1.0 mg/dL Aspartate Amino Transferase (AST) 16 13-40 U/L Alanine Aminotransferase (ALT) 24 7-40 U/L Alkaline Phosphatase 112 46-116 U/L Total Protein 6.2 5.7-8.2 g/dL Albumin 4.0 3.2-4.8 g/dL Troponin I High Sensitivity 3 L </=54 ng/L Assessment Rule out structural heart disease Mild coronary artery disease Hypertension Dyslipidemia Type 2 diabetes mellitus CVA Alcohol use History of Tobacco use Plan/Recommendation We will continue with following plan/recommendations (Dr. Luu): Case discussed with . We will proceed with obtaining a transthoracic echocardiogram to evaluate cardiac function. A BNP level was ordered at time of assessment. Patient with no signs of fluid overload at time of assessment. Patient was upgraded to telemetry. A repeat chest x-ray confirms no acute cardiopulmonary disease. Pending pulmonary consultation. Thank you for allowing us to care for this patient. Please call with any questions or co ncerns. Critical care time spent: 42 minutes This medical document was created using an electronic medical record system with voice recognition software and computerized dictation system. Although this document has been carefully reviewed, there might still be some phonetic and typographical errors. Occasional wrong-word or ``sound-alike substitutions may have occurred due to the inherent limitations of voice recognition software. These areas are purely typographical due to imperfections of the software programs and do not reflect any compromise in the patient's medical care. Please read the chart carefully and recognize, using context, where these substitutions have occurred. Plan discussed with: Patient NYHA Physical activity limitations: NA Date of Service: Dec 28, 2024 Billing Provider: PANCHO BRYANT Cardiology Common Codes: 45715-[id number] INP/OBS CARE (High) Cardiology Consultation Codes: 05845-[id number] CONSULT <45MIN PANCHO BRYANT [employer] DEVELOPER Dec 28, 2024 13:58
[2024-12-28] MEDS: guaiFENesin-DM 100/10mg/5ml SYR PO PRN (15:05)
--- NOTE | 2024-12-28 15:19 | DVH ---
CHEST RADIOGRAPH Indication: SOB Technique: Single frontal view of the chest was obtained Comparison: XY CHEST PORTABLE on DOS: 12/27/24, CHEST XRAY 1 VIEW on DOS: 12/24/20 FINDINGS: Lines and Tubes: None Lungs: No focal consolidation. Pleura: No effusion. No pneumothorax. Cardiomediastinal contours: Unremarkable Bones: No acute osseous abnormality. IMPRESSION: 1. No acute cardiopulmonary disease. 2. No significant change from 12/27/2024. HS:Y
[2024-12-28 19:06] LABS: COVID19 ANTIGEN SOFIA FIA NEGATIVE (NEGATIVE); Rapid Influenza A Negative (Negative); Rapid Influenza B Negative (Negative)
--- NOTE | 2024-12-28 21:17 | DVHSR ---
APPROVED REPORT EXAM: Two-dimensional and M-mode echocardiogram with Doppler and color Doppler. Blood Pressure: 154/105 mmHg INDICATION Evaluate cardiac function RISK FACTORS Height: 5'10", Weight: 181 DIMENSIONS LVDd5.2 (3.8-5.7cm)LA (2D)3.3 (1.9-4.0cm)Aortic Root4.2 (2.0-3.7cm) LVDs3.8 (2.5-4.0cm)LA (MM) (1.9-4.0cm)Aortic Cusp Exc2.3 (1.5-2.0cm) EF (%) 52.0 (55-70%)Rt. Atrium3.0 (1.9-4.0cm)Asc. Aorta4.2 cm IVSd0.8 (0.7-1.1cm)RV (D) (1.8-2.4cm) PWd0.9 (0.7-1.1cm) Mitral Valve MitralMitral Stenosis E/A ratio0.02D MVAcm2 Aortic Valve Aortic ValveAortic Stenosis V10.99m/Mayelin Mean GR.2mmHg V20.95m/Mayelin Peak GR.4mmHg LVOT Diameter2.4 (1.8-2.4cm)Doppler AVA4.71cm2 Pulmonic Valve V20.93m/s Tricuspid Valve TR Velocity2.56m/s [id number] Other Information Quality : Technically LimitedRhythm : Technically limited study due to body habitus. Conclusion Technically good study. Sinus rhythm. Aortic root enlargement. Dilatation of the sinuses of Valsalva. Mild mitral annular calcification. The aortic and mitral are otherwise structurally normal. Tricuspid and pulmonic or structurally normal. Left ventricular function is preserved however there is mild anterior hypokinesis. EF is approximate ly 50%. Right ventricular function is preserved. No pericardial effusion masses or vegetations discernible.
--- NOTE | 2024-12-28 22:39 | DVHINCON2 ---
Date of service: Dec 28, 2024 Referring Physician Talat Franz MD Reason for Consultation Acute on chronic hypoxic respiratory failure and pneumonitis. History of Present Illness A 69-year-old man with past medical history of hypertension, hyperlipidemia, and gout who presented to ED on 12/27/24 with c/o shortness of breath. Patient reported sx began with flu-like symptoms in the beginning of November. He went to his PCP in the beginning of December with persistent sx, was given a Z-pack; pt noted improvement but then symptoms worsened prompting him to come to ED. Patient c/o productive cough and shortness of breath. Denies any fevers or N/V/D. O2 sats on RA were in the 80's on arrival to ED, was placed on 2 L NC and improved to mid 90's. Examination noted wheezing and rhonchi bilaterally. Patient was admitted for further care, and pulmonary consultation is requested for evaluation and management of acute on chronic hypoxic respiratory failure and pneumonitis. Review of Systems: 14-point review of systems negative unless otherwise noted above. Past Medical History: Hypertension, hyperlipidemia, diabetes and gout Of note, pt reports history of diabetes, but had gastric bypass years ago, lost 70 lbs and was able to stop all his diabetic medications. He recently went on Ozempic for weight loss. Past Surgical History: Gastric bypass Medications: Reviewed. Allergies: No known drug allergies. Family History: Heart disease and colon cancer. Social History: Nonsmoker. Occasional alcohol use. No illicit drug use. Family History: Colon cancer G8 MOTHER FH: heart disease G8 FATHER Allergies: Coded Allergies: NO KNOWN ALLERGIES (Unverified , 06/05/20) Home Meds Reported Medications Tamsulosin Hcl (Tamsulosin Hcl) 0.4 Mg Cap, 0.4 MG PO DAILY 12/27/24 Carvedilol (Carvedilol) 6.25 Mg Tab, 1 TAB PO BID 12/27/24 Atorvastatin Calcium (ATORVASTATIN CALCIUM) 20 Mg Tab, 1 TAB PO HS 12/27/24 Oxycodone W/ Acetaminophen (Percocet 5/325MG) 1 Tab Tb, 1 TAB PO QIDPRN PRN for PAIN SCALE 1 THRU 6 12/19/20 Methocarbamol (Methocarbamol) 750 Mg Tab, 750 MG PO BID 12/19/20 Famotidine (Famotidine) 20 Mg Tab, 20 MG PO BID 12/19/20 Pregabalin (Lyrica) 100 Mg Cap, 100 MG PO TID 12/19/20 Duloxetine Hcl (Cymbalta) 20 Mg Cap, 30 MG PO DAILY, CAP 12/19/20 Metoprolol Succinate (Toprol Xl) 50 Mg Tab, 100 MG PO DAILY 12/19/20 Lisinopril (Lisinopril) 20 Mg Tab, 20 MG PO DAILY 12/19/20 Allopurinol (Allopurinol) 100 Mg Tab, 100 MG PO BID 12/19/20 Omeprazole (Gnp Omeprazole) 20 Mg Tab, 20 MG PO QID 12/19/20 Discontinued Reported Medications Atorvastatin Calcium (ATORVASTATIN CALCIUM) 10 Mg Tab, 10 MG PO DAILY 12/19/20 Current Medications Current Medications Medications (Trade) Dose Ordered Sig/Cassia Route PRN Reason Start Time Stop Time Status Last Admin Duloxetine HCl (Cymbalta Capsule) 30 mg DAILY PO 12/28/24 10:00 12/28/24 09:29 Methocarbamol (Robaxin) 750 mg BID PO 12/28/24 10:00 12/28/24 21:23 Pantoprazole Sodium (Protonix Tablet) 40 mg DAILY PO 12/28/24 10:00 12/28/24 09:28 Pregabalin (Lyrica Capsule) 100 mg TID PO 12/28/24 06:00 12/28/24 21:22 Carvedilol (Coreg Tablet) 6.25 mg BID PO 12/28/24 10:00 12/28/24 21:24 Azithromycin 250 ml @ 125 mls/hr DAILY IV 12/28/24 10:00 12/28/24 10:00 Ceftriaxone Sodium 50 ml @ 100 mls/hr DAILY@09 IV 12/28/24 09:00 12/28/24 09:24 Tamsulosin HCl (Flomax) 0.4 mg DAILY PO 12/28/24 10:00 12/28/24 09:28 Guaifenesin/ Dextromethorphan (Robitussin-Dm Liquid) 15 ml Q8HR PRN PO FOR COUGH 12/28/24 12:30 12/28/24 15:05 Vital Signs Vital Signs Date Time Temp Pulse Resp B/P (MAP) Pulse Ox O2 Delivery O2 Flow Rate FiO2 12/28/24 21:24 94 151/85 12/28/24 21:00 97.5 18 94 97.5 12/28/24 20:00 Nasal Cannula* 2 28 Physical Exam Gen.: Patient lying in bed in no apparent distress. On supplemental oxygen. Head: Normocephalic, atraumatic. Eyes: EOMI/PERRLA. Ears: Normal hearing. Normal anatomy. Neck/trachea: Trachea midline, supple. Nose: Normal external anatomy. Mouth: Moist mucous membranes. Chest: Decreased air entry bilaterally. No wheezing or rhonchi. Cardiovascular: Positive S1, positive S2. Regular rate and rhythm. Abdomen: Positive bowel sounds in all 4 quadrants. Soft, non-tender, non- distended. : Deferred. Rectal: Deferred. Skin: Warm, dry. Intact. Extremities: 2+ radial pulses bilaterally. No lower extremity edema. Neuro: Awake, alert, oriented x3. No gross motor or sensory deficits. Cranial nerves II through XII intact. Gait not assessed. Labs/Diagnostic Data Labs Test 12/28/24 16:00 12/28/24 14:15 12/28/24 05:59 12/27/24 12:06 Range/Units Influenza Type A Antigen Negative Negative Influenza Type B Antigen Negative Negative SARS-CoV-2 Antigen (Rapid) Negative NEGATIVE D-Dimer, Quantitative 0.56 H 0.0-0.49 mg/L FEU Thyroid Stimulating Hormone (TSH) 0.66 0.55-4.78 uIU/mL White Blood Count 8.3 # 4.4-10.8 10^3/uL Red Blood Count 4.61 4.5-5.90 10^6/uL Hemoglobin 14.1 13.5-17.5 g/dL Hematocrit 43.6 41.0-53.0 % Mean Corpuscular Volume 94.5 80.0-100.0 fL Mean Corpuscular Hemoglobin 30.7 28.0-32.0 pg Mean Corpuscular Hemoglobin Concent 32.5 32.0-36.0 g/dL Red Cell Distribution Width 13.0 11.8-14.3 % Platelet Count 254 140-450 10^3/uL Mean Platelet Volume 7.0 6.9-10.8 fL Neutrophils (%) (Auto) 83.2 H 37.0-80.0 % Lymphocytes (%) (Auto) 13.8 10.0-50.0 % Monocytes (%) (Auto) 2.9 0.0-12.0 % Eosinophils (%) (Auto) 0.0 0.0-7.0 % Basophils (%) (Auto) 0.1 0.0-2.0 % Neutrophils # (Auto) 6.9 1.6-8.6 10 ^3/uL Lymphocytes # (Auto) 1.1 0.4-5.4 10 ^3/uL Monocytes # (Auto) 0.2 0-1.3 10 ^3/uL Eosinophils # (Auto) 0 0-0.8 10 ^3/uL Basophils # (Auto) 0 0-0.2 10 ^3/uL Nucleated Red Blood Cells 0.1 % Sodium Level 139 136-145 mmol/L Potassium Level 4.5 3.5-5.1 mmol/L Chloride Level 104 98-107 mmol/L Carbon Dioxide Level 24 20-31 mmol/L Anion Gap 11 5-15 Blood Urea Nitrogen 18 9-23 mg/dL Creatinine 1.20 0.700-1.30 mg/dL Glomerular Filtration Rate Calc 65 >90 mL/min BUN/Creatinine Ratio 15.0 10.0-20.0 Serum Glucose 178 H 74-106 mg/dL Calcium Level 9.9 8.7-10.4 mg/dL Total Bilirubin 0.3 0.2-1.0 mg/dL Aspartate Amino Transferase (AST) 16 13-40 U/L Alanine Aminotransferase (ALT) 24 7-40 U/L Alkaline Phosphatase 112 46-116 U/L B-Type Natriuretic Peptide 53.04 0-100 pg/mL Total Protein 6.2 5.7-8.2 g/dL Albumin 4.0 3.2-4.8 g/dL Troponin I High Sensitivity 3 L </=54 ng/L Assessment Impression: Acute on chronic hypoxic respiratory failure Dependence on supplemental oxygen Atelectasis Pneumonitis Elevated D-dimer Overweight, BMI 29.0 Plan: Supplemental oxygen 3 LPM NC Titrate to keep O2 sats above 92%. Taper O2 as tolerated. CXR reviewed, demonstrates no acute opacities, pleural effusion or pneumothorax. Continue bronchodilators. Continue antibiotics Continue steroids Improved cough - antitussive Incentive spirometry Monitor renal function. Monitor electrolytes. Supplement as necessary. Monitor ins and outs. DVT prophylaxis. Prognosis: Poor given patient's multiple co-morbidities. Rest of plan per hospitalist and other consultants. Thank you, Dr. Franz, for allowing me to participate in this patient's care. Further recommendations will depend on the patient's clinical course. Please do not hesitate to contact me if you have any questions or concerns. This medical document was created using an electronic medical record system with [employer] mobile dictation system. Although these documentations are being carefully reviewed, there may still be some phonetic and typographical changes. The errors are purely typographical, due to imperfection on the software program, and do not reflect any compromise in the patient's medical care. Plan discussed with: Patient, Other (MILLA Miguel/Dr. Franz) PABLO RODRGIUEZ MD Dec 28, 2024 22:39
[2024-12-29] VITALS (14 sets, daily range): BP systolic 137–152; BP diastolic 84–95; PULSE 65–103; RESP 16–20; TEMP 97.2–98.4; O2SAT 92–99
--- NOTE | 2024-12-29 11:14 | DVHPN2 ---
Reviewed: Care Plan, H&P, Labs, Medications, Previous Orders, Radiology Changes from previous H/P or p: No Changes Eyes: No Pain, No Vision change, No Conjunctivae inflammation, No Eyelid inflammation, No Other, No Redness ENT: No Ear pain, No Ear discharge, No Nose pain, No Nose discharge, No Nose congestion, No Mouth pain, No Mouth swelling, No Throat pain, No Throat swelling, No Other Cardiovascular: No Chest Pain, No Palpitations, No Orthopnea, No Paroxysmal Noc. Dyspnea, No Edema, No Lt Headedness, No Other Respiratory: Cough; No Dry; Shortness of breath, SOB with excertion, Wheezing; No Hemoptysis; Pleuritic Pain, Sputum; No Other Gastrointestinal: No Nausea, No Vomiting, No Abdominal Pain, No Diarrhea, No Constipation, No Melena, No Hematochezia, No Other Genitourinary: No Dysuria, No Frequency, No Incontinence, No Hematuria, No Retention, No Other Musculoskeletal: No other, No neck pain, No shoulder pain, No arm pain, No back pain, No hand pain, No leg pain, No foot pain Skin: No Rash, No Lesions, No Jaundice, No Bruising, No Other Objective Vitals Vital Signs Date Time Temp Pulse Resp B/P (MAP) Pulse Ox O2 Delivery O2 Flow Rate FiO2 12/29/24 10:30 65 152/94 12/29/24 09:00 97.6 16 95 97.6 12/29/24 08:00 Nasal Cannula* 2 28 Intake/Output Intake and Output 12/29/24 07:00 Intake Total 1300 ml Balance 1300 ml Intake Oral 1000 ml IV Total 300 ml # Voids 3 # Bowel Movements 2 Medications Current Medications Medications Dose Ordered Sig/Cassia Route Start Time Stop Time Status Last Admin Dose Admin Allopurinol 100 mg BID PO 12/27/24 22:00 12/29/24 10:21 100 MG Duloxetine HCl 30 mg DAILY PO 12/28/24 10:00 12/29/24 10:22 30 MG Methocarbamol 750 mg BID PO 12/28/24 10:00 12/29/24 10:22 750 MG Pantoprazole Sodium 40 mg DAILY PO 12/28/24 10:00 12/29/24 10:22 40 MG Pregabalin 100 mg TID PO 12/28/24 06:00 12/29/24 06:02 100 MG Atorvastatin Calcium 20 mg HS PO 12/27/24 22:00 12/28/24 21:22 20 MG Carvedilol 6.25 mg BID PO 12/28/24 10:00 12/29/24 10:30 6.25 MG Ipratropium [place] 0.5 mg Q6HWA NEB 12/27/24 18:00 12/29/24 06:17 0.5 MG Albuterol 2.5 mg Q6HWA NEB 12/27/24 18:00 12/29/24 06:17 2.5 MG Methylprednisolone Sodium Succinate 40 mg BID IV 12/27/24 22:00 12/29/24 10:30 40 MG Azithromycin 250 ml @ 125 mls/hr DAILY IV 12/28/24 10:00 12/29/24 10:30 125 MLS/HR Ceftriaxone Sodium 50 ml @ 100 mls/hr DAILY@09 IV 12/28/24 09:00 12/29/24 08:40 100 MLS/HR Sodium Chloride 10 ml Q8HR IV 12/27/24 22:00 12/29/24 06:02 10 ML Acetaminophen/ Hydrocodone Bitart 1 tab Q4HP PRN PO 12/27/24 16:45 Ondansetron HCl 4 mg Q4HP PRN IV 12/27/24 16:45 Docusate Sodium 100 mg BIDPRN PRN PO 12/27/24 16:45 Acetaminophen 650 mg Q6HP PRN PO 12/27/24 16:45 12/28/24 01:50 650 MG Tamsulosin HCl 0.4 mg DAILY PO 12/28/24 10:00 12/29/24 10:21 0.4 MG Guaifenesin/ Dextromethorphan 15 ml Q8HR PRN PO 12/28/24 12:30 12/29/24 10:53 15 ML Laboratory Results Laboratory Tests 12/28/24 05:59 Coagulation Test 12/28/24 14:15 D-Dimer, Quantitative 0.56 mg/L FEU (0.0-0.49) H HgA1c, TSH Test 12/28/24 14:15 Thyroid Stimulating Hormone (TSH) 0.66 uIU/mL (0.55-4.78) Labs and/or images reviewed: Labs reviewed by me, Image(s) reviewed by me Assessment/Plan Assessment/Plan Acute hypoxic respiratory failure, oxygen by nasal cannula Possible community-acquired pneumonia: Azithromycin Solu-Medrol consult for pulmonology Dr. Diaz Congestive heart failure: Consult for Use of home oxygen 3 L per mt Hypertension, Coreg Hyperlipidemia, : Lipitor Gout, BPH: Flomax Depression: Cymbalta History of gastric bypass surgery On Ozempic for weight loss Flu test negative Magalie test negative D-dimer normal Morbid obesity weight 82 kg Time spent 55 minutes Condition guarded Patient is full code PCP Dr Zaragoza Plan discussed with: Patient My Orders Orders - JF ORTEGA MD Procedure Category Date Status Time *Consult CONS 12/28/24 Transmitted / 12:22 * Cardiology Consult CONS 12/28/24 Transmitted 12:24 Guaifenesin-Dextromet PHA 12/28/24 In Process Liquid (Robitussin 12:30 Date of Service: Dec 29, 2024 Billing Provider: JF ORTEGA MD Common Visit Codes: [id number] INP/OBS CARE(HIGH) JF ORTEGA MD Dec 29, 2024 11:14
--- NOTE | 2024-12-29 11:32 | DVHPN2 ---
Consult Progress Note Date Seen: Dec 29, 2024 Subjective Review of Systems: CVS:Normal, RESPIRATORY:Abnormal, NEURO:Normal Other Systems: C/o of mild SOB, improving Objective vital signs Vital Sign Date Time Temp Pulse Resp B/P (MAP) Pulse Ox O2 Delivery O2 Flow Rate FiO2 12/29/24 10:30 65 152/94 12/29/24 09:00 97.6 16 95 97.6 12/29/24 08:00 Nasal Cannula* 2 28 Total Intake and Output 12/28/24 12/28/24 12/29/24 15:00 23:00 07:00 Intake Total 300 ml 800 ml 200 ml Balance 300 ml 800 ml 200 ml medications Current Medications Medications Dose Ordered Sig/Cassia Route Start Time Stop Time Status Last Admin Dose Admin Allopurinol 100 mg BID PO 12/27/24 22:00 12/29/24 10:21 100 MG Duloxetine HCl 30 mg DAILY PO 12/28/24 10:00 12/29/24 10:22 30 MG Methocarbamol 750 mg BID PO 12/28/24 10:00 12/29/24 10:22 750 MG Pantoprazole Sodium 40 mg DAILY PO 12/28/24 10:00 12/29/24 10:22 40 MG Pregabalin 100 mg TID PO 12/28/24 06:00 12/29/24 06:02 100 MG Atorvastatin Calcium 20 mg HS PO 12/27/24 22:00 12/28/24 21:22 20 MG Carvedilol 6.25 mg BID PO 12/28/24 10:00 12/29/24 10:30 6.25 MG Ipratropium [place] 0.5 mg Q6HWA NEB 12/27/24 18:00 12/29/24 06:17 0.5 MG Albuterol 2.5 mg Q6HWA NEB 12/27/24 18:00 12/29/24 06:17 2.5 MG Methylprednisolone Sodium Succinate 40 mg BID IV 12/27/24 22:00 12/29/24 10:30 40 MG Azithromycin 250 ml @ 125 mls/hr DAILY IV 12/28/24 10:00 12/29/24 10:30 125 MLS/HR Ceftriaxone Sodium 50 ml @ 100 mls/hr DAILY@09 IV 12/28/24 09:00 12/29/24 08:40 100 MLS/HR Sodium Chloride 10 ml Q8HR IV 12/27/24 22:00 12/29/24 06:02 10 ML Acetaminophen/ Hydrocodone Bitart 1 tab Q4HP PRN PO 12/27/24 16:45 Ondansetron HCl 4 mg Q4HP PRN IV 12/27/24 16:45 Docusate Sodium 100 mg BIDPRN PRN PO 12/27/24 16:45 Acetaminophen 650 mg Q6HP PRN PO 12/27/24 16:45 12/28/24 01:50 650 MG Tamsulosin HCl 0.4 mg DAILY PO 12/28/24 10:00 12/29/24 10:21 0.4 MG Guaifenesin/ Dextromethorphan 15 ml Q8HR PRN PO 12/28/24 12:30 12/29/24 10:53 15 ML Examination: LUNGS:Abnormal (Expiratory wheezing), CVS:Normal, NEURO:Normal laboratory and microbiology Laboratory Tests 12/28/24 05:59 Test 12/28/24 05:59 Range/Units Serum Glucose 178 H 74-106 mg/dL Problem List/Assessment/Plan Problem List/Assessment/Plan Acute on chronic hypoxic respiratory failure Mild coronary artery disease w/o chest pain Hypertension Dyslipidemia Type 2 diabetes mellitus CVA Alcohol use History of Tobacco use >30 years ago Plan/Recommendation (Dr. Luu) A transthoracic echocardiogram revealed an EF of . BNP level is negative. Patient is euvolemic. Chest x-ray confirms no acute cardiopulmonary disease. Continue pulmonary consultation. There is no further cardiac work-up indicated at this time. Kindly call if in need to re-conuslt. Thank you for allowing us to care for this patient. This medical document was created using an electronic medical record system with voice recognition software and computerized dictation system. Although this document has been carefully reviewed, there might still be some phonetic and typographical errors. Occasional wrong-word or ``sound-alike substitutions may have occurred due to the inherent limitations of voice recognition software. These areas are purely typographical due to imperfections of the software programs and do not reflect any compromise in the patient's medical care. Please read the chart carefully and recognize, using context, where these substitutions have occurred. Plan discussed with: Patient, Other Date of Service: Dec 29, 2024 Billing Provider: LISETTE WORTHY Cardiology Common Codes: [id number] INP/OBS CARE(Mod) LISETTE WORTHY SPOOLER Dec 29, 2024 11:32
--- NOTE | 2024-12-29 23:14 | DVHPN2 ---
Progress Note - Dictate Date Seen: Dec 29, 2024 Medical Necessity Reason Pt with a Central, PICC or Fol: No Subjective Patient seen and examined at bedside. Remains on supplemental oxygen Overnight events reviewed. vital signs Vital Sign Date Time Temp Pulse Resp B/P (MAP) Pulse Ox O2 Delivery O2 Flow Rate FiO2 12/29/24 21:44 103 142/93 12/29/24 21:00 98.4 20 95 98.4 12/29/24 18:32 Nasal Cannula 3.0 12/29/24 18:32 32 Total Intake and Output 12/28/24 12/28/24 12/29/24 15:00 23:00 07:00 Intake Total 300 ml 800 ml 200 ml Balance 300 ml 800 ml 200 ml medications Current Medications Medications Dose Ordered Sig/Cassia Route Start Time Stop Time Status Last Admin Dose Admin Allopurinol 100 mg BID PO 12/27/24 22:00 12/29/24 21:44 100 MG Duloxetine HCl 30 mg DAILY PO 12/28/24 10:00 12/29/24 10:22 30 MG Methocarbamol 750 mg BID PO 12/28/24 10:00 12/29/24 21:43 750 MG Pantoprazole Sodium 40 mg DAILY PO 12/28/24 10:00 12/29/24 10:22 40 MG Pregabalin 100 mg TID PO 12/28/24 06:00 12/29/24 21:42 100 MG Atorvastatin Calcium 20 mg HS PO 12/27/24 22:00 12/29/24 21:45 20 MG Carvedilol 6.25 mg BID PO 12/28/24 10:00 12/29/24 21:44 6.25 MG Ipratropium [place] 0.5 mg Q6HWA NEB 12/27/24 18:00 12/29/24 18:32 0.5 MG Albuterol 2.5 mg Q6HWA NEB 12/27/24 18:00 12/29/24 18:32 2.5 MG Methylprednisolone Sodium Succinate 40 mg BID IV 12/27/24 22:00 12/29/24 21:41 40 MG Azithromycin 250 ml @ 125 mls/hr DAILY IV 12/28/24 10:00 12/29/24 10:30 125 MLS/HR Ceftriaxone Sodium 50 ml @ 100 mls/hr DAILY@09 IV 12/28/24 09:00 12/29/24 08:40 100 MLS/HR Sodium Chloride 10 ml Q8HR IV 12/27/24 22:00 12/29/24 21:45 10 ML Acetaminophen/ Hydrocodone Bitart 1 tab Q4HP PRN PO 12/27/24 16:45 Ondansetron HCl 4 mg Q4HP PRN IV 12/27/24 16:45 Docusate Sodium 100 mg BIDPRN PRN PO 12/27/24 16:45 Acetaminophen 650 mg Q6HP PRN PO 12/27/24 16:45 12/28/24 01:50 650 MG Tamsulosin HCl 0.4 mg DAILY PO 12/28/24 10:00 12/29/24 10:21 0.4 MG Guaifenesin/ Dextromethorphan 15 ml Q8HR PRN PO 12/28/24 12:30 12/29/24 10:53 15 ML objective Gen.: Patient lying in bed in no apparent distress. On supplemental oxygen. Head: Normocephalic, atraumatic. Eyes: EOMI/PERRLA. Ears: Normal hearing. Normal anatomy. Neck/trachea: Trachea midline, supple. Nose: Normal external anatomy. Mouth: Moist mucous membranes. Chest: Decreased air entry bilaterally. No wheezing or rhonchi. Cardiovascular: Positive S1, positive S2. Regular rate and rhythm. Abdomen: Positive bowel sounds in all 4 quadrants. Soft, non-tender, non- distended. : Deferred. Rectal: Deferred. Skin: Warm, dry. Intact. Extremities: 2+ radial pulses bilaterally. No lower extremity edema. Neuro: Awake, alert, oriented x3. No gross motor or sensory deficits. Cranial nerves II through XII intact. Gait not assessed. laboratory and microbiology Laboratory Tests 12/28/24 05:59 Test 12/28/24 05:59 Range/Units Serum Glucose 178 H 74-106 mg/dL Assessment/Plan Impression: Acute on chronic hypoxic respiratory failure Dependence on supplemental oxygen Atelectasis Pneumonitis Elevated D-dimer Overweight, BMI 29.0 Events: Remains on supplemental oxygen, 4 LPM NC Taper O2 as tolerated Plan to obtain limited chest ultrasound Continue bronchodilators Continue antibiotics Incentive spirometry Labs and imaging reviewed. Rest of plan as noted below. Plan: Supplemental oxygen Titrate to keep O2 sats above 92%. Continue bronchodilators. Continue antibiotics Continue steroids Antitussive PRN cough Incentive spirometry Monitor renal function. Monitor electrolytes. Supplement as necessary. Monitor ins and outs. DVT prophylaxis. Prognosis: Guarded given patient's multiple co-morbidities. Rest of plan per hospitalist and other consultants. Thank you, Dr. Franz, for allowing me to participate in this patient's care. Further recommendations will depend on the patient's clinical course. Please do not hesitate to contact me if you have any questions or concerns. This medical document was created using an electronic medical record system with [employer] dictation system. Although these documentations are being carefully reviewed, there may still be some phonetic and typographical changes. The errors are purely typographical, due to imperfection on the software program, and do not reflect any compromise in the patient's medical care. Plan discussed with: Patient, Other (MILLA Rose) PABLO RODRIGUEZ MD Dec 29, 2024 23:14
[2024-12-30] VITALS (16 sets, daily range): BP systolic 128–164; BP diastolic 88–120; PULSE 75–107; RESP 18–20; TEMP 97.7–98.8; O2SAT 92–100
--- NOTE | 2024-12-30 10:25 | DVHPN2 ---
Reviewed: Care Plan, H&P, Labs, Medications, Previous Orders, Radiology Changes from previous H/P or p: No Changes Eyes: No Pain, No Vision change, No Conjunctivae inflammation, No Eyelid inflammation, No Other, No Redness ENT: No Ear pain, No Ear discharge, No Nose pain, No Nose discharge, No Nose congestion, No Mouth pain, No Mouth swelling, No Throat pain, No Throat swelling, No Other Cardiovascular: No Chest Pain, No Palpitations, No Orthopnea, No Paroxysmal Noc. Dyspnea, No Edema, No Lt Headedness, No Other Respiratory: Cough; No Dry; Shortness of breath, SOB with excertion, Wheezing; No Hemoptysis; Pleuritic Pain, Sputum; No Other Gastrointestinal: No Nausea, No Vomiting, No Abdominal Pain, No Diarrhea, No Constipation, No Melena, No Hematochezia, No Other Genitourinary: No Dysuria, No Frequency, No Incontinence, No Hematuria, No Retention, No Other Musculoskeletal: No other, No neck pain, No shoulder pain, No arm pain, No back pain, No hand pain, No leg pain, No foot pain Skin: No Rash, No Lesions, No Jaundice, No Bruising, No Other Objective Vitals Vital Signs Date Time Temp Pulse Resp B/P (MAP) Pulse Ox O2 Delivery O2 Flow Rate FiO2 12/30/24 09:00 97.7 81 20 157/89 (111) 93 97.7 12/30/24 07:26 Nasal Cannula 3.0 12/30/24 07:26 32 Intake/Output Intake and Output 12/30/24 07:00 Intake Total 1550 ml Balance 1550 ml Intake Oral 1250 ml IV Total 300 ml # Voids 4 Medications Current Medications Medications Dose Ordered Sig/Cassia Route Start Time Stop Time Status Last Admin Dose Admin Allopurinol 100 mg BID PO 12/27/24 22:00 12/30/24 08:57 100 MG Duloxetine HCl 30 mg DAILY PO 12/28/24 10:00 12/30/24 08:57 30 MG Methocarbamol 750 mg BID PO 12/28/24 10:00 12/30/24 08:57 750 MG Pantoprazole Sodium 40 mg DAILY PO 12/28/24 10:00 12/30/24 08:58 40 MG Pregabalin 100 mg TID PO 12/28/24 06:00 12/30/24 05:57 100 MG Atorvastatin Calcium 20 mg HS PO 12/27/24 22:00 12/29/24 21:45 20 MG Carvedilol 6.25 mg BID PO 12/28/24 10:00 12/30/24 08:58 6.25 MG Ipratropium [place] 0.5 mg Q6HWA NEB 12/27/24 18:00 12/30/24 07:25 0.5 MG Albuterol 2.5 mg Q6HWA NEB 12/27/24 18:00 12/30/24 07:25 2.5 MG Methylprednisolone Sodium Succinate 40 mg BID IV 12/27/24 22:00 12/30/24 08:59 40 MG Azithromycin 250 ml @ 125 mls/hr DAILY IV 12/28/24 10:00 12/30/24 10:06 125 MLS/HR Ceftriaxone Sodium 50 ml @ 100 mls/hr DAILY@09 IV 12/28/24 09:00 12/30/24 08:46 100 MLS/HR Sodium Chloride 10 ml Q8HR IV 12/27/24 22:00 12/30/24 05:57 10 ML Acetaminophen/ Hydrocodone Bitart 1 tab Q4HP PRN PO 12/27/24 16:45 Ondansetron HCl 4 mg Q4HP PRN IV 12/27/24 16:45 Docusate Sodium 100 mg BIDPRN PRN PO 12/27/24 16:45 Acetaminophen 650 mg Q6HP PRN PO 12/27/24 16:45 12/28/24 01:50 650 MG Tamsulosin HCl 0.4 mg DAILY PO 12/28/24 10:00 12/30/24 08:57 0.4 MG Guaifenesin/ Dextromethorphan 15 ml Q8HR PRN PO 12/28/24 12:30 12/30/24 08:56 15 ML Laboratory Results Laboratory Tests 12/28/24 05:59 Labs and/or images reviewed: Labs reviewed by me, Image(s) reviewed by me Assessment/Plan Assessment/Plan Acute hypoxic respiratory failure, oxygen by nasal cannula Possible community-acquired pneumonia: Rocephin Azithromycin Solu-Medrol consult for pulmonology Dr. Diaz appreciated Congestive heart failure: Consult for Patient does not use oxygen at home Hypertension, Coreg Hyperlipidemia, : Lipitor Gout, BPH: Flomax Depression: Cymbalta History of gastric bypass surgery On Ozempic for weight loss Flu test negative Magalie test negative D-dimer normal Morbid obesity weight 92 kg Time spent 55 minutes Condition guarded Patient is full code PCP Dr Zaragoza Plan discussed with: Patient Date of Service: Dec 30, 2024 Billing Provider: JF ORETGA MD Common Visit Codes: [id number] INP/OBS CARE(HIGH) JF ORTEGA MD Dec 30, 2024 10:25
[2024-12-30] MEDS: cloNIDine HCL 0.1 MG TAB PO PRN (17:58)
[2024-12-30] MEDS: methylPREDNISolone SOD SUCC 40 MG/ML VL IV SCH (21:54)
--- NOTE | 2024-12-30 23:10 | DVHPN2 ---
Progress Note - Dictate Date Seen: Dec 30, 2024 Medical Necessity Reason Pt with a Central, PICC or Fol: No Subjective Patient seen and examined at bedside. Remains on supplemental oxygen Overnight events reviewed. vital signs Vital Sign Date Time Temp Pulse Resp B/P (MAP) Pulse Ox O2 Delivery O2 Flow Rate FiO2 12/30/24 21:54 104 130/91 12/30/24 21:00 98.8 20 94 98.8 12/30/24 20:09 Nasal Cannula* 2 28 Total Intake and Output 12/29/24 12/29/24 12/30/24 15:00 23:00 07:00 Intake Total 300 ml 450 ml 800 ml Balance 300 ml 450 ml 800 ml medications Current Medications Medications Dose Ordered Sig/Cassia Route Start Time Stop Time Status Last Admin Dose Admin Allopurinol 100 mg BID PO 12/27/24 22:00 12/30/24 21:54 100 MG Duloxetine HCl 30 mg DAILY PO 12/28/24 10:00 12/30/24 08:57 30 MG Methocarbamol 750 mg BID PO 12/28/24 10:00 12/30/24 21:53 750 MG Pantoprazole Sodium 40 mg DAILY PO 12/28/24 10:00 12/30/24 08:58 40 MG Pregabalin 100 mg TID PO 12/28/24 06:00 12/30/24 21:53 100 MG Atorvastatin Calcium 20 mg HS PO 12/27/24 22:00 12/30/24 21:54 20 MG Carvedilol 6.25 mg BID PO 12/28/24 10:00 12/30/24 21:54 6.25 MG Ipratropium [place] 0.5 mg Q6HWA NEB 12/27/24 18:00 12/30/24 18:21 0.5 MG Albuterol 2.5 mg Q6HWA NEB 12/27/24 18:00 12/30/24 18:21 2.5 MG Azithromycin 250 ml @ 125 mls/hr DAILY IV 12/28/24 10:00 12/30/24 10:06 125 MLS/HR Ceftriaxone Sodium 50 ml @ 100 mls/hr DAILY@09 IV 12/28/24 09:00 12/30/24 08:46 100 MLS/HR Sodium Chloride 10 ml Q8HR IV 12/27/24 22:00 12/30/24 21:52 10 ML Acetaminophen/ Hydrocodone Bitart 1 tab Q4HP PRN PO 12/27/24 16:45 Ondansetron HCl 4 mg Q4HP PRN IV 12/27/24 16:45 Docusate Sodium 100 mg BIDPRN PRN PO 12/27/24 16:45 Acetaminophen 650 mg Q6HP PRN PO 12/27/24 16:45 12/28/24 01:50 650 MG Tamsulosin HCl 0.4 mg DAILY PO 12/28/24 10:00 12/30/24 08:57 0.4 MG Guaifenesin/ Dextromethorphan 15 ml Q8HR PRN PO 12/28/24 12:30 12/30/24 19:36 15 ML Methylprednisolone Sodium Succinate 40 mg Q8HR IV 12/30/24 22:00 12/30/24 21:54 40 MG Clonidine HCl 0.2 mg Q6HP PRN PO 12/30/24 16:45 12/30/24 17:58 0.2 MG objective Gen.: Patient lying in bed in no apparent distress. On supplemental oxygen. Head: Normocephalic, atraumatic. Eyes: EOMI/PERRLA. Ears: Normal hearing. Normal anatomy. Neck/trachea: Trachea midline, supple. Nose: Normal external anatomy. Mouth: Moist mucous membranes. Chest: Decreased air entry bilaterally. No wheezing or rhonchi. Cardiovascular: Positive S1, positive S2. Regular rate and rhythm. Abdomen: Positive bowel sounds in all 4 quadrants. Soft, non-tender, non- distended. : Deferred. Rectal: Deferred. Skin: Warm, dry. Intact. Extremities: 2+ radial pulses bilaterally. No lower extremity edema. Neuro: Awake, alert, oriented x3. No gross motor or sensory deficits. Cranial nerves II through XII intact. Gait not assessed. laboratory and microbiology Laboratory Tests 12/28/24 05:59 Test 12/28/24 05:59 Range/Units Serum Glucose 178 H 74-106 mg/dL Assessment/Plan Impression: Acute on chronic hypoxic respiratory failure Dependence on supplemental oxygen Atelectasis Pneumonitis Elevated D-dimer Overweight, BMI 29.0 Events: Remains on supplemental oxygen, 3 LPM NC Taper O2 as tolerated Plan to obtain limited chest ultrasound Continue bronchodilators - schedule q.4 hours Continue antibiotics IV steroids - increase frequency to q.8 hours Antitussive for cough Incentive spirometry Labs and imaging reviewed. Rest of plan as noted below. Plan: Supplemental oxygen Titrate to keep O2 sats above 92%. Continue bronchodilators. Continue antibiotics Continue steroids Antitussive PRN cough Incentive spirometry Monitor renal function. Monitor electrolytes. Supplement as necessary. Monitor ins and outs. DVT prophylaxis. Prognosis: Guarded given patient's multiple co-morbidities. Rest of plan per hospitalist and other consultants. Thank you, Dr. Franz, for allowing me to participate in this patient's care. Further recommendations will depend on the patient's clinical course. Please do not hesitate to contact me if you have any questions or concerns. This medical document was created using an electronic medical record system with [employer] dictation system. Although these documentations are being carefully reviewed, there may still be some phonetic and typographical changes. The errors are purely typographical, due to imperfection on the software program, and do not reflect any compromise in the patient's medical care. Plan discussed with: Patient, Other (MILLA Chan) PABLO RODRIGUEZ MD Dec 30, 2024 23:10
[2024-12-31] VITALS (16 sets, daily range): BP systolic 132–169; BP diastolic 85–109; PULSE 73–111; RESP 14–20; TEMP 97.7–98.6; O2SAT 89–99
[2024-12-31] MEDS: IPRATROPIUM BROM 0.5 MG/2.5ML INH SOL NEB SCH (07:08)
[2024-12-31] MEDS: ALBUTEROL SULF 2.5 MG/0.5ML(0.5%) NEB SOLN NEB SCH (07:08)
--- NOTE | 2024-12-31 10:50 | DVHPN2 ---
Reviewed: Care Plan, H&P, Labs, Medications, Previous Orders, Radiology Changes from previous H/P or p: No Changes Eyes: No Pain, No Vision change, No Conjunctivae inflammation, No Eyelid inflammation, No Other, No Redness ENT: No Ear pain, No Ear discharge, No Nose pain, No Nose discharge, No Nose congestion, No Mouth pain, No Mouth swelling, No Throat pain, No Throat swelling, No Other Cardiovascular: No Chest Pain, No Palpitations, No Orthopnea, No Paroxysmal Noc. Dyspnea, No Edema, No Lt Headedness, No Other Respiratory: Cough; No Dry; Shortness of breath, SOB with excertion, Wheezing; No Hemoptysis; Pleuritic Pain, Sputum; No Other Gastrointestinal: No Nausea, No Vomiting, No Abdominal Pain, No Diarrhea, No Constipation, No Melena, No Hematochezia, No Other Genitourinary: No Dysuria, No Frequency, No Incontinence, No Hematuria, No Retention, No Other Musculoskeletal: No other, No neck pain, No shoulder pain, No arm pain, No back pain, No hand pain, No leg pain, No foot pain Skin: No Rash, No Lesions, No Jaundice, No Bruising, No Other Objective Vitals Vital Signs Date Time Temp Pulse Resp B/P (MAP) Pulse Ox O2 Delivery O2 Flow Rate FiO2 12/31/24 09:15 87 129/92 12/31/24 09:00 98.2 20 91 98.2 12/31/24 07:08 Nasal Cannula 3.0 12/31/24 07:08 32 Intake/Output Intake and Output 12/31/24 07:00 Intake Total 2040 ml Output Total 700 ml Balance 1340 ml Intake Oral 1740 ml IV Total 300 ml Output Urine Total 700 ml # Voids 2 Medications Current Medications Medications Dose Ordered Sig/Cassia Route Start Time Stop Time Status Last Admin Dose Admin Allopurinol 100 mg BID PO 12/27/24 22:00 12/31/24 08:15 100 MG Duloxetine HCl 30 mg DAILY PO 12/28/24 10:00 12/31/24 08:15 30 MG Methocarbamol 750 mg BID PO 12/28/24 10:00 12/31/24 08:16 750 MG Pantoprazole Sodium 40 mg DAILY PO 12/28/24 10:00 12/31/24 08:15 40 MG Pregabalin 100 mg TID PO 12/28/24 06:00 12/31/24 05:46 100 MG Atorvastatin Calcium 20 mg HS PO 12/27/24 22:00 12/30/24 21:54 20 MG Carvedilol 6.25 mg BID PO 12/28/24 10:00 12/31/24 08:15 6.25 MG Azithromycin 250 ml @ 125 mls/hr DAILY IV 12/28/24 10:00 12/31/24 10:05 125 MLS/HR Ceftriaxone Sodium 50 ml @ 100 mls/hr DAILY@09 IV 12/28/24 09:00 12/31/24 08:13 100 MLS/HR Sodium Chloride 10 ml Q8HR IV 12/27/24 22:00 12/31/24 05:46 10 ML Acetaminophen/ Hydrocodone Bitart 1 tab Q4HP PRN PO 12/27/24 16:45 Ondansetron HCl 4 mg Q4HP PRN IV 12/27/24 16:45 Docusate Sodium 100 mg BIDPRN PRN PO 12/27/24 16:45 Acetaminophen 650 mg Q6HP PRN PO 12/27/24 16:45 12/28/24 01:50 650 MG Tamsulosin HCl 0.4 mg DAILY PO 12/28/24 10:00 12/31/24 08:15 0.4 MG Guaifenesin/ Dextromethorphan 15 ml Q8HR PRN PO 12/28/24 12:30 12/30/24 19:36 15 ML Methylprednisolone Sodium Succinate 40 mg Q8HR IV 12/30/24 22:00 12/31/24 05:46 40 MG Clonidine HCl 0.2 mg Q6HP PRN PO 12/30/24 16:45 12/30/24 17:58 0.2 MG Albuterol 2.5 mg Q6HR NEB 12/31/24 06:00 12/31/24 07:08 2.5 MG Ipratropium [place] 0.5 mg Q6HR NEB 12/31/24 06:00 12/31/24 07:08 0.5 MG Laboratory Results Laboratory Tests 12/28/24 05:59 Labs and/or images reviewed: Labs reviewed by me, Image(s) reviewed by me Assessment/Plan Assessment/Plan Acute hypoxic respiratory failure, oxygen by nasal cannula Possible community-acquired pneumonia: Rocephin Azithromycin Solu-Medrol consult for pulmonology Dr. Diaz appreciated Congestive heart failure: Consult for Patient does not use oxygen at home Hypertension, Coreg Hyperlipidemia, : Lipitor Gout, BPH: Flomax Depression: Cymbalta History of gastric bypass surgery On Ozempic for weight loss Flu test negative Magalie test negative D-dimer normal Morbid obesity weight 92 kg Time spent 55 minutes Condition guarded Patient is full code PCP Dr Zaragoza Plan discussed with: Patient My Orders Orders - JF ORTEGA MD Procedure Category Date Status Time Clonidine Hcl Tablet PHA 12/30/24 In Process (Catapres Tablet) 16:45 Date of Service: Dec 31, 2024 Billing Provider: JF ORTEGA MD Common Visit Codes: [id number] INP/OBS CARE(HIGH) JF ORTEGA MD Dec 31, 2024 10:49
[2024-12-31] MEDS: LISINOPRIL 20 MG TAB PO ONE (11:38)
[2024-12-31] MEDS: OZEMPIC 2 MG/3 ML INJ SCH (16:16)
--- NOTE | 2024-12-31 21:53 | DVHPN2 ---
Progress Note - Dictate Date Seen: Dec 31, 2024 Medical Necessity Reason Pt with a Central, PICC or Fol: No Subjective Patient seen and examined at bedside. Remains on supplemental oxygen Overnight events reviewed. vital signs Vital Sign Date Time Temp Pulse Resp B/P (MAP) Pulse Ox O2 Delivery O2 Flow Rate FiO2 12/31/24 21:13 90 145/102 12/31/24 20:00 20 94 Nasal Cannula* 3 32 12/31/24 17:00 97.7 97.7 Total Intake and Output 12/30/24 12/30/24 12/31/24 15:00 23:00 07:00 Intake Total 500 ml 640 ml 900 ml Output Total 700 ml Balance 500 ml -60 ml 900 ml medications Current Medications Medications Dose Ordered Sig/Cassia Route Start Time Stop Time Status Last Admin Dose Admin Allopurinol 100 mg BID PO 12/27/24 22:00 12/31/24 21:13 100 MG Duloxetine HCl 30 mg DAILY PO 12/28/24 10:00 12/31/24 08:15 30 MG Methocarbamol 750 mg BID PO 12/28/24 10:00 12/31/24 21:14 750 MG Pantoprazole Sodium 40 mg DAILY PO 12/28/24 10:00 12/31/24 08:15 40 MG Pregabalin 100 mg TID PO 12/28/24 06:00 12/31/24 21:14 100 MG Atorvastatin Calcium 20 mg HS PO 12/27/24 22:00 12/31/24 21:14 20 MG Carvedilol 6.25 mg BID PO 12/28/24 10:00 12/31/24 21:13 6.25 MG Azithromycin 250 ml @ 125 mls/hr DAILY IV 12/28/24 10:00 12/31/24 10:05 125 MLS/HR Ceftriaxone Sodium 50 ml @ 100 mls/hr DAILY@09 IV 12/28/24 09:00 12/31/24 08:13 100 MLS/HR Sodium Chloride 10 ml Q8HR IV 12/27/24 22:00 12/31/24 21:12 10 ML Acetaminophen/ Hydrocodone Bitart 1 tab Q4HP PRN PO 12/27/24 16:45 Ondansetron HCl 4 mg Q4HP PRN IV 12/27/24 16:45 Docusate Sodium 100 mg BIDPRN PRN PO 12/27/24 16:45 Acetaminophen 650 mg Q6HP PRN PO 12/27/24 16:45 12/28/24 01:50 650 MG Tamsulosin HCl 0.4 mg DAILY PO 12/28/24 10:00 12/31/24 08:15 0.4 MG Guaifenesin/ Dextromethorphan 15 ml Q8HR PRN PO 12/28/24 12:30 12/30/24 19:36 15 ML Methylprednisolone Sodium Succinate 40 mg Q8HR IV 12/30/24 22:00 12/31/24 21:12 40 MG Clonidine HCl 0.2 mg Q6HP PRN PO 12/30/24 16:45 12/30/24 17:58 0.2 MG Albuterol 2.5 mg Q6HR NEB 12/31/24 06:00 12/31/24 18:47 2.5 MG Ipratropium [place] 0.5 mg Q6HR NEB 12/31/24 06:00 12/31/24 18:47 0.5 MG Lisinopril 20 mg DAILY PO 01/01/25 10:00 Metoprolol Succinate 100 mg DAILY PO 01/01/25 10:00 Patient Own Medication 1 QWEEKLY INJ 12/31/24 16:30 12/31/24 16:16 1 objective Gen.: Patient lying in bed in no apparent distress. On supplemental oxygen. Head: Normocephalic, atraumatic. Eyes: EOMI/PERRLA. Ears: Normal hearing. Normal anatomy. Neck/trachea: Trachea midline, supple. Nose: Normal external anatomy. Mouth: Moist mucous membranes. Chest: Decreased air entry bilaterally. No wheezing or rhonchi. Cardiovascular: Positive S1, positive S2. Regular rate and rhythm. Abdomen: Positive bowel sounds in all 4 quadrants. Soft, non-tender, non- distended. : Deferred. Rectal: Deferred. Skin: Warm, dry. Intact. Extremities: 2+ radial pulses bilaterally. No lower extremity edema. Neuro: Awake, alert, oriented x3. No gross motor or sensory deficits. Cranial nerves II through XII intact. Gait not assessed. laboratory and microbiology Laboratory Tests 12/28/24 05:59 Test 12/28/24 05:59 Range/Units Serum Glucose 178 H 74-106 mg/dL Assessment/Plan Impression: Acute on chronic hypoxic respiratory failure Dependence on supplemental oxygen Atelectasis Pneumonitis Elevated D-dimer Overweight, BMI 29.0 Events: Remains on supplemental oxygen, 3 LPM NC Taper O2 as tolerated Continue bronchodilators Continue antibiotics IV steroids - taper as tolerated Antitussive for cough Incentive spirometry Protonix for GI prophylaxis Labs and imaging reviewed. Rest of plan as noted below. Plan: Supplemental oxygen Titrate to keep O2 sats above 92%. Continue bronchodilators. Continue antibiotics Continue steroids Antitussive PRN cough Incentive spirometry Monitor renal function. Monitor electrolytes. Supplement as necessary. Monitor ins and outs. DVT prophylaxis. Prognosis: Guarded given patient's multiple co-morbidities. Rest of plan per hospitalist and other consultants. Thank you, Dr. Franz, for allowing me to participate in this patient's care. Further recommendations will depend on the patient's clinical course. Please do not hesitate to contact me if you have any questions or concerns. This medical document was created using an electronic medical record system with [employer] dictation system. Although these documentations are being carefully reviewed, there may still be some phonetic and typographical changes. The errors are purely typographical, due to imperfection on the software program, and do not reflect any compromise in the patient's medical care. Dietary Evaluation Review Recommendations by RD: Dietary education by RD Comments: 1) Add 60g CCHO restriction to cardiac diet order 2) Collect HbA1c 3) Refer to RD/CDCES for weight management 4) Continue plan of care Expected Outcomes/Goals: 1) appetite and labs to improve 2) f/u in 5 days Plan discussed with: Patient, Other (MILLA Chan) PABLO RODRIGUEZ MD Dec 31, 2024 21:53
[2025-01-01] VITALS (17 sets, daily range): BP systolic 122–158; BP diastolic 75–97; PULSE 70–90; RESP 16–20; TEMP 97.7–98.7; O2SAT 90–100
[2025-01-01] MEDS: LISINOPRIL 20 MG TAB PO SCH (09:16)
[2025-01-01] MEDS: METOPROLOL SUCCINATE XL 50 MG TAB PO SCH (09:17)
--- NOTE | 2025-01-01 10:59 | DVHPN2 ---
Reviewed: Care Plan, H&P, Labs, Medications, Previous Orders, Radiology Changes from previous H/P or p: No Changes Eyes: No Pain, No Vision change, No Conjunctivae inflammation, No Eyelid inflammation, No Other, No Redness ENT: No Ear pain, No Ear discharge, No Nose pain, No Nose discharge, No Nose congestion, No Mouth pain, No Mouth swelling, No Throat pain, No Throat swelling, No Other Cardiovascular: No Chest Pain, No Palpitations, No Orthopnea, No Paroxysmal Noc. Dyspnea, No Edema, No Lt Headedness, No Other Respiratory: Cough; No Dry; Shortness of breath, SOB with excertion, Wheezing; No Hemoptysis; Pleuritic Pain, Sputum; No Other Gastrointestinal: No Nausea, No Vomiting, No Abdominal Pain, No Diarrhea, No Constipation, No Melena, No Hematochezia, No Other Genitourinary: No Dysuria, No Frequency, No Incontinence, No Hematuria, No Retention, No Other Musculoskeletal: No other, No neck pain, No shoulder pain, No arm pain, No back pain, No hand pain, No leg pain, No foot pain Skin: No Rash, No Lesions, No Jaundice, No Bruising, No Other Objective Vitals Vital Signs Date Time Temp Pulse Resp B/P (MAP) Pulse Ox O2 Delivery O2 Flow Rate FiO2 01/01/25 09:17 70 153/92 01/01/25 09:00 98.7 18 91 98.7 01/01/25 08:00 Nasal Cannula* 3 32 Intake/Output Intake and Output 01/01/25 07:00 Intake Total 2680 ml Output Total 2 ml Balance 2678 ml Intake Oral 2380 ml IV Total 300 ml Stool Total 2 ml # Voids 8 Medications Current Medications Medications Dose Ordered Sig/Cassia Route Start Time Stop Time Status Last Admin Dose Admin Allopurinol 100 mg BID PO 12/27/24 22:00 01/01/25 09:16 100 MG Duloxetine HCl 30 mg DAILY PO 12/28/24 10:00 01/01/25 09:16 30 MG Methocarbamol 750 mg BID PO 12/28/24 10:00 01/01/25 09:17 750 MG Pantoprazole Sodium 40 mg DAILY PO 12/28/24 10:00 01/01/25 09:16 40 MG Pregabalin 100 mg TID PO 12/28/24 06:00 01/01/25 05:51 100 MG Atorvastatin Calcium 20 mg HS PO 12/27/24 22:00 12/31/24 21:14 20 MG Carvedilol 6.25 mg BID PO 12/28/24 10:00 01/01/25 09:16 6.25 MG Azithromycin 250 ml @ 125 mls/hr DAILY IV 12/28/24 10:00 01/01/25 10:54 125 MLS/HR Ceftriaxone Sodium 50 ml @ 100 mls/hr DAILY@09 IV 12/28/24 09:00 01/01/25 09:15 100 MLS/HR Sodium Chloride 10 ml Q8HR IV 12/27/24 22:00 01/01/25 05:51 10 ML Acetaminophen/ Hydrocodone Bitart 1 tab Q4HP PRN PO 12/27/24 16:45 Ondansetron HCl 4 mg Q4HP PRN IV 12/27/24 16:45 Docusate Sodium 100 mg BIDPRN PRN PO 12/27/24 16:45 Acetaminophen 650 mg Q6HP PRN PO 12/27/24 16:45 12/28/24 01:50 650 MG Tamsulosin HCl 0.4 mg DAILY PO 12/28/24 10:00 01/01/25 09:16 0.4 MG Guaifenesin/ Dextromethorphan 15 ml Q8HR PRN PO 12/28/24 12:30 12/30/24 19:36 15 ML Methylprednisolone Sodium Succinate 40 mg Q8HR IV 12/30/24 22:00 01/01/25 05:51 40 MG Clonidine HCl 0.2 mg Q6HP PRN PO 12/30/24 16:45 12/30/24 17:58 0.2 MG Albuterol 2.5 mg Q6HR NEB 12/31/24 06:00 01/01/25 07:18 2.5 MG Ipratropium [place] 0.5 mg Q6HR NEB 12/31/24 06:00 01/01/25 07:18 0.5 MG Lisinopril 20 mg DAILY PO 01/01/25 10:00 01/01/25 09:16 20 MG Metoprolol Succinate 100 mg DAILY PO 01/01/25 10:00 01/01/25 09:17 100 MG Patient Own Medication 1 QWEEKLY INJ 12/31/24 16:30 12/31/24 16:16 1 Laboratory Results Laboratory Tests 12/28/24 05:59 Labs and/or images reviewed: Labs reviewed by me, Image(s) reviewed by me Assessment/Plan Assessment/Plan Acute hypoxic respiratory failure, oxygen by nasal cannula Possible community-acquired pneumonia: Rocephin Azithromycin Solu-Medrol consult for pulmonology Dr. Diaz appreciated Congestive heart failure: Consult for Patient does not use oxygen at home Hypertension, Coreg Hyperlipidemia, : Lipitor Gout, BPH: Flomax Depression: Cymbalta History of gastric bypass surgery On Ozempic for weight loss Flu test negative Magalie test negative D-dimer normal Morbid obesity weight 92 kg Time spent 55 minutes Condition guarded Patient is full code PCP Dr Zaragoza Still complains of shortness of breaths and not feeling well Plan discussed with: Patient My Orders Orders - JF ORTEGA MD Procedure Category Date Status Time Patients Own PHA 12/31/24 In Process Medication 16:30 Date of Service: Jan 01, 2025 Billing Provider: JF ORTEGA MD Common Visit Codes: [id number] INP/OBS CARE(HIGH) JF ORTEGA MD Jan 01, 2025 10:59
--- NOTE | 2025-01-01 22:34 | DVHPN2 ---
Progress Note - Dictate Date Seen: Jan 01, 2025 Medical Necessity Reason Pt with a Central, PICC or Fol: No Subjective Patient seen and examined at bedside. Remains on supplemental oxygen Overnight events reviewed. vital signs Vital Sign Date Time Temp Pulse Resp B/P (MAP) Pulse Ox O2 Delivery O2 Flow Rate FiO2 01/01/25 22:07 88 131/87 01/01/25 21:00 98.0 19 90 98.0 01/01/25 18:47 Nasal Cannula* 3 32 Total Intake and Output 12/31/24 12/31/24 01/01/25 15:00 23:00 07:00 Intake Total 780 ml 480 ml 1420 ml Output Total 2 ml Balance 780 ml 478 ml 1420 ml medications Current Medications Medications Dose Ordered Sig/Cassia Route Start Time Stop Time Status Last Admin Dose Admin Allopurinol 100 mg BID PO 12/27/24 22:00 01/01/25 22:07 100 MG Duloxetine HCl 30 mg DAILY PO 12/28/24 10:00 01/01/25 09:16 30 MG Methocarbamol 750 mg BID PO 12/28/24 10:00 01/01/25 22:05 750 MG Pantoprazole Sodium 40 mg DAILY PO 12/28/24 10:00 01/01/25 09:16 40 MG Pregabalin 100 mg TID PO 12/28/24 06:00 01/01/25 22:03 100 MG Atorvastatin Calcium 20 mg HS PO 12/27/24 22:00 01/01/25 22:05 20 MG Carvedilol 6.25 mg BID PO 12/28/24 10:00 01/01/25 22:07 6.25 MG Azithromycin 250 ml @ 125 mls/hr DAILY IV 12/28/24 10:00 01/01/25 10:54 125 MLS/HR Ceftriaxone Sodium 50 ml @ 100 mls/hr DAILY@09 IV 12/28/24 09:00 01/01/25 09:15 100 MLS/HR Sodium Chloride 10 ml Q8HR IV 12/27/24 22:00 01/01/25 22:02 10 ML Acetaminophen/ Hydrocodone Bitart 1 tab Q4HP PRN PO 12/27/24 16:45 Ondansetron HCl 4 mg Q4HP PRN IV 12/27/24 16:45 Docusate Sodium 100 mg BIDPRN PRN PO 12/27/24 16:45 Acetaminophen 650 mg Q6HP PRN PO 12/27/24 16:45 12/28/24 01:50 650 MG Tamsulosin HCl 0.4 mg DAILY PO 12/28/24 10:00 01/01/25 09:16 0.4 MG Guaifenesin/ Dextromethorphan 15 ml Q8HR PRN PO 12/28/24 12:30 01/01/25 15:24 15 ML Methylprednisolone Sodium Succinate 40 mg Q8HR IV 12/30/24 22:00 01/01/25 22:03 40 MG Clonidine HCl 0.2 mg Q6HP PRN PO 12/30/24 16:45 12/30/24 17:58 0.2 MG Albuterol 2.5 mg Q6HR NEB 12/31/24 06:00 01/01/25 18:47 2.5 MG Ipratropium [place] 0.5 mg Q6HR NEB 12/31/24 06:00 01/01/25 18:47 0.5 MG Lisinopril 20 mg DAILY PO 01/01/25 10:00 01/01/25 09:16 20 MG Metoprolol Succinate 100 mg DAILY PO 01/01/25 10:00 01/01/25 09:17 100 MG Patient Own Medication 1 QWEEKLY INJ 12/31/24 16:30 12/31/24 16:16 1 objective Gen.: Patient lying in bed in no apparent distress. On supplemental oxygen. Head: Normocephalic, atraumatic. Eyes: EOMI/PERRLA. Ears: Normal hearing. Normal anatomy. Neck/trachea: Trachea midline, supple. Nose: Normal external anatomy. Mouth: Moist mucous membranes. Chest: Decreased air entry bilaterally. Wheezing, improved. No rhonchi. Cardiovascular: Positive S1, positive S2. Regular rate and rhythm. Abdomen: Positive bowel sounds in all 4 quadrants. Soft, non-tender, non- distended. : Deferred. Rectal: Deferred. Skin: Warm, dry. Intact. Extremities: 2+ radial pulses bilaterally. No lower extremity edema. Neuro: Awake, alert, oriented x3. No gross motor or sensory deficits. Cranial nerves II through XII intact. Gait not assessed. laboratory and microbiology Laboratory Tests 12/28/24 05:59 Test 12/28/24 05:59 Range/Units Serum Glucose 178 H 74-106 mg/dL Assessment/Plan Impression: Acute on chronic hypoxic respiratory failure Dependence on supplemental oxygen Atelectasis Pneumonitis Elevated D-dimer Overweight, BMI 29.0 Events: Remains on supplemental oxygen, 3 LPM NC Taper O2 as tolerated Patient is slowly improving. Improved wheezing. Continue bronchodilators Continue antibiotics IV steroids - taper as tolerated Antitussive for cough Incentive spirometry Protonix for GI prophylaxis Labs and imaging reviewed. Rest of plan as noted below. Plan: Supplemental oxygen Titrate to keep O2 sats above 92%. Continue bronchodilators. Continue antibiotics Continue steroids Antitussive PRN cough Incentive spirometry Monitor renal function. Monitor electrolytes. Supplement as necessary. Monitor ins and outs. DVT prophylaxis. Prognosis: Guarded given patient's multiple co-morbidities. Rest of plan per hospitalist and other consultants. Thank you, Dr. Franz, for allowing me to participate in this patient's care. Further recommendations will depend on the patient's clinical course. Please do not hesitate to contact me if you have any questions or concerns. This medical document was created using an electronic medical record system with [employer] dictation system. Although these documentations are being carefully reviewed, there may still be some phonetic and typographical changes. The errors are purely typographical, due to imperfection on the software program, and do not reflect any compromise in the patient's medical care. Dietary Evaluation Review Recommendations by RD: Dietary education by RD Comments: 1) Add 60g CCHO restriction to cardiac diet order 2) Collect HbA1c 3) Refer to RD/CDCES for weight management 4) Continue plan of care Expected Outcomes/Goals: 1) appetite and labs to improve 2) f/u in 5 days Plan discussed with: Patient, Other (MILLA Seay) PABLO RODRIGUEZ MD Jan 01, 2025 22:34
[2025-01-02] VITALS (16 sets, daily range): BP systolic 132–182; BP diastolic 83–111; PULSE 72–103; RESP 18–21; TEMP 97.4–98.1; O2SAT 91–97
[2025-01-02] MEDS: HYDROcodone-ACET 5/325MG TAB PO PRN (00:01)
--- NOTE | 2025-01-02 09:26 | CONS ---
Pharmacy Clinical Information: CQM HF (ANTIHYPERGLYCEMIC DRUG). Patient's last Hemoglobin A1c was 6.3% on ; a more recent level might be beneficial to make a more appropriate guidelines-based recommendation. Additionally patient is taking Ozempic at home and has been continued on it at the hospital during this visit. The decision to add another antihyperglycemic drug should be at the primary care providers discretion. TIFFANIE PELAEZ PHARMACIST Jan 02, 2025 09:26
--- NOTE | 2025-01-02 11:41 | DVHPN2 ---
Reviewed: Care Plan, H&P, Labs, Medications, Previous Orders, Radiology Changes from previous H/P or p: No Changes Eyes: No Pain, No Vision change, No Conjunctivae inflammation, No Eyelid inflammation, No Other, No Redness ENT: No Ear pain, No Ear discharge, No Nose pain, No Nose discharge, No Nose congestion, No Mouth pain, No Mouth swelling, No Throat pain, No Throat swelling, No Other Cardiovascular: No Chest Pain, No Palpitations, No Orthopnea, No Paroxysmal Noc. Dyspnea, No Edema, No Lt Headedness, No Other Respiratory: Cough; No Dry; Shortness of breath, SOB with excertion, Wheezing; No Hemoptysis; Pleuritic Pain, Sputum; No Other Gastrointestinal: No Nausea, No Vomiting, No Abdominal Pain, No Diarrhea, No Constipation, No Melena, No Hematochezia, No Other Genitourinary: No Dysuria, No Frequency, No Incontinence, No Hematuria, No Retention, No Other Musculoskeletal: No other, No neck pain, No shoulder pain, No arm pain, No back pain, No hand pain, No leg pain, No foot pain Skin: No Rash, No Lesions, No Jaundice, No Bruising, No Other Objective Vitals Vital Signs Date Time Temp Pulse Resp B/P (MAP) Pulse Ox O2 Delivery O2 Flow Rate FiO2 01/02/25 09:27 121/77 01/02/25 09:00 97.8 80 20 92 97.8 01/02/25 06:56 Nasal Cannula 4.0 01/02/25 06:56 36 Intake/Output Intake and Output 01/02/25 07:00 Intake Total 2215 ml Balance 2215 ml Intake Oral 1915 ml IV Total 300 ml # Voids 5 # Bowel Movements 2 Medications Current Medications Medications Dose Ordered Sig/Cassia Route Start Time Stop Time Status Last Admin Dose Admin Allopurinol 100 mg BID PO 12/27/24 22:00 01/02/25 09:27 100 MG Duloxetine HCl 30 mg DAILY PO 12/28/24 10:00 01/02/25 09:27 30 MG Methocarbamol 750 mg BID PO 12/28/24 10:00 01/02/25 09:28 750 MG Pantoprazole Sodium 40 mg DAILY PO 12/28/24 10:00 01/02/25 09:27 40 MG Pregabalin 100 mg TID PO 12/28/24 06:00 01/02/25 06:18 100 MG Atorvastatin Calcium 20 mg HS PO 12/27/24 22:00 01/01/25 22:05 20 MG Carvedilol 6.25 mg BID PO 12/28/24 10:00 01/01/25 22:07 6.25 MG Azithromycin 250 ml @ 125 mls/hr DAILY IV 12/28/24 10:00 01/02/25 11:17 125 MLS/HR Ceftriaxone Sodium 50 ml @ 100 mls/hr DAILY@09 IV 12/28/24 09:00 01/02/25 09:30 100 MLS/HR Sodium Chloride 10 ml Q8HR IV 12/27/24 22:00 01/02/25 06:19 10 ML Acetaminophen/ Hydrocodone Bitart 1 tab Q4HP PRN PO 12/27/24 16:45 01/02/25 00:01 1 TAB Ondansetron HCl 4 mg Q4HP PRN IV 12/27/24 16:45 Docusate Sodium 100 mg BIDPRN PRN PO 12/27/24 16:45 Acetaminophen 650 mg Q6HP PRN PO 12/27/24 16:45 12/28/24 01:50 650 MG Tamsulosin HCl 0.4 mg DAILY PO 12/28/24 10:00 01/02/25 09:26 0.4 MG Guaifenesin/ Dextromethorphan 15 ml Q8HR PRN PO 12/28/24 12:30 01/02/25 00:02 15 ML Methylprednisolone Sodium Succinate 40 mg Q8HR IV 12/30/24 22:00 01/02/25 06:19 40 MG Clonidine HCl 0.2 mg Q6HP PRN PO 12/30/24 16:45 01/02/25 06:17 0.2 MG Albuterol 2.5 mg Q6HR NEB 12/31/24 06:00 01/02/25 06:56 2.5 MG Ipratropium [place] 0.5 mg Q6HR NEB 12/31/24 06:00 01/02/25 06:56 0.5 MG Lisinopril 20 mg DAILY PO 01/01/25 10:00 01/02/25 09:27 20 MG Metoprolol Succinate 100 mg DAILY PO 01/01/25 10:00 01/01/25 09:17 100 MG Patient Own Medication 1 QWEEKLY INJ 12/31/24 16:30 12/31/24 16:16 1 Laboratory Results Laboratory Tests 12/28/24 05:59 Labs and/or images reviewed: Labs reviewed by me, Image(s) reviewed by me Assessment/Plan Assessment/Plan Acute hypoxic respiratory failure, oxygen by nasal cannula Possible community-acquired pneumonia: Rocephin Azithromycin Solu-Medrol consult for pulmonology Dr. Diaz appreciated Congestive heart failure: Consult for Patient does not use oxygen at home Hypertension, Coreg Hyperlipidemia, : Lipitor Gout, BPH: Flomax Depression: Cymbalta History of gastric bypass surgery On Ozempic for weight loss Flu test negative Magalie test negative D-dimer normal Morbid obesity weight 92 kg Time spent 55 minutes Condition guarded Patient is full code PCP Dr Zaragoza Still complains of shortness of breaths and not feeling well; Spoke with Dr. Diaz who is going to re-evaluate Plan discussed with: Patient Date of Service: Jan 02, 2025 Billing Provider: JF ORTEGA MD Common Visit Codes: [id number] INP/OBS CARE(HIGH) JF ORTEGA MD Jan 02, 2025 11:40
[2025-01-02] MEDS ORDERED: ALPRAZolam 0.5 MG TAB PO SCH (14:00)
[2025-01-02] MEDS: IPRATROPIUM BROM 0.5 MG/2.5ML INH SOL NEB SCH (18:49)
[2025-01-02] MEDS: ALBUTEROL SULF 2.5 MG/0.5ML(0.5%) NEB SOLN NEB SCH (18:49)
[2025-01-02] MEDS: ACETYLCYSTEINE 20%(200MG/ML) SOL 4ML NEB SCH (21:53)
--- NOTE | 2025-01-02 22:17 | DVHPN2 ---
Progress Note - Dictate Date Seen: Jan 02, 2025 Medical Necessity Reason Pt with a Central, PICC or Fol: No Subjective Patient seen and examined at bedside. Remains on supplemental oxygen Overnight events reviewed. vital signs Vital Sign Date Time Temp Pulse Resp B/P (MAP) Pulse Ox O2 Delivery O2 Flow Rate FiO2 01/02/25 21:00 98.1 103 19 148/83 (104) 92 98.1 01/02/25 18:49 Nasal Cannula* 3 32 Total Intake and Output 01/01/25 01/01/25 01/02/25 14:59 22:59 06:59 Intake Total 1075 ml 1140 ml Balance 1075 ml 1140 ml medications Current Medications Medications Dose Ordered Sig/Cassia Route Start Time Stop Time Status Last Admin Dose Admin Allopurinol 100 mg BID PO 12/27/24 22:00 01/02/25 09:27 100 MG Duloxetine HCl 30 mg DAILY PO 12/28/24 10:00 01/02/25 09:27 30 MG Methocarbamol 750 mg BID PO 12/28/24 10:00 01/02/25 09:28 750 MG Pantoprazole Sodium 40 mg DAILY PO 12/28/24 10:00 01/02/25 09:27 40 MG Pregabalin 100 mg TID PO 12/28/24 06:00 01/02/25 15:46 100 MG Atorvastatin Calcium 20 mg HS PO 12/27/24 22:00 01/01/25 22:05 20 MG Carvedilol 6.25 mg BID PO 12/28/24 10:00 01/01/25 22:07 6.25 MG Azithromycin 250 ml @ 125 mls/hr DAILY IV 12/28/24 10:00 01/02/25 11:17 125 MLS/HR Ceftriaxone Sodium 50 ml @ 100 mls/hr DAILY@09 IV 12/28/24 09:00 01/02/25 09:30 100 MLS/HR Sodium Chloride 10 ml Q8HR IV 12/27/24 22:00 01/02/25 14:00 10 ML Acetaminophen/ Hydrocodone Bitart 1 tab Q4HP PRN PO 12/27/24 16:45 01/02/25 00:01 1 TAB Ondansetron HCl 4 mg Q4HP PRN IV 12/27/24 16:45 Docusate Sodium 100 mg BIDPRN PRN PO 12/27/24 16:45 Acetaminophen 650 mg Q6HP PRN PO 12/27/24 16:45 12/28/24 01:50 650 MG Tamsulosin HCl 0.4 mg DAILY PO 12/28/24 10:00 01/02/25 09:26 0.4 MG Guaifenesin/ Dextromethorphan 15 ml Q8HR PRN PO 12/28/24 12:30 01/02/25 00:02 15 ML Methylprednisolone Sodium Succinate 40 mg Q8HR IV 12/30/24 22:00 01/02/25 15:43 40 MG Clonidine HCl 0.2 mg Q6HP PRN PO 12/30/24 16:45 01/02/25 06:17 0.2 MG Lisinopril 20 mg DAILY PO 01/01/25 10:00 01/02/25 09:27 20 MG Metoprolol Succinate 100 mg DAILY PO 01/01/25 10:00 01/01/25 09:17 100 MG Patient Own Medication 1 QWEEKLY INJ 12/31/24 16:30 12/31/24 16:16 1 Alprazolam 1 mg TIDP PO 01/02/25 14:00 Cancel Alprazolam 1 mg TIDPRN PO 01/02/25 22:00 Albuterol 2.5 mg Q4HR NEB 01/02/25 18:00 01/02/25 21:54 2.5 MG Ipratropium [place] 0.5 mg Q4HR NEB 01/02/25 18:00 01/02/25 21:54 0.5 MG Acetylcysteine 200 mg Q8HR NEB 01/02/25 22:00 01/02/25 21:53 200 MG objective Gen.: Patient lying in bed in no apparent distress. On supplemental oxygen. Head: Normocephalic, atraumatic. Eyes: EOMI/PERRLA. Ears: Normal hearing. Normal anatomy. Neck/trachea: Trachea midline, supple. Nose: Normal external anatomy. Mouth: Moist mucous membranes. Chest: Decreased air entry bilaterally. Wheezing, improved. No rhonchi. Cardiovascular: Positive S1, positive S2. Regular rate and rhythm. Abdomen: Positive bowel sounds in all 4 quadrants. Soft, non-tender, non- distended. : Deferred. Rectal: Deferred. Skin: Warm, dry. Intact. Extremities: 2+ radial pulses bilaterally. No lower extremity edema. Neuro: Awake, alert, oriented x3. No gross motor or sensory deficits. Cranial nerves II through XII intact. Gait not assessed. laboratory and microbiology Laboratory Tests 12/28/24 05:59 Test 12/28/24 05:59 Range/Units Serum Glucose 178 H 74-106 mg/dL Assessment/Plan Impression: Acute on chronic hypoxic respiratory failure Dependence on supplemental oxygen Atelectasis Pneumonitis Elevated D-dimer Overweight, BMI 29.0 Events: Remains on supplemental oxygen, 3 LPM NC Taper O2 as tolerated Patient desaturated overnight Obtain ambulation pulse oximetry Elevated D-dimer - Obtain CTA chest to rule out PE. Continue bronchodilators Start mucolytics + CPT Continue antibiotics IV steroids - taper as tolerated Antitussive for cough Incentive spirometry Protonix for GI prophylaxis Labs and imaging reviewed. Rest of plan as noted below. Plan: Supplemental oxygen Titrate to keep O2 sats above 92%. Continue bronchodilators. Continue antibiotics Continue steroids Antitussive PRN cough Incentive spirometry Monitor renal function. Monitor electrolytes. Supplement as necessary. Monitor ins and outs. DVT prophylaxis. Prognosis: Guarded given patient's multiple co-morbidities. Rest of plan per hospitalist and other consultants. Thank you, Dr. Franz, for allowing me to participate in this patient's care. Further recommendations will depend on the patient's clinical course. Please do not hesitate to contact me if you have any questions or concerns. This medical document was created using an electronic medical record system with [employer] dictation system. Although these documentations are being carefully reviewed, there may still be some phonetic and typographical changes. The errors are purely typographical, due to imperfection on the software program, and do not reflect any compromise in the patient's medical care. Dietary Evaluation Review Recommendations by RD: Dietary education by RD Comments: 1) Add 60g CCHO restriction to cardiac diet order 2) Collect HbA1c 3) Refer to RD/CDCES for weight management 4) Continue plan of care Expected Outcomes/Goals: 1) appetite and labs to improve 2) f/u in 5 days Plan discussed with: Patient, Other (MILLA Duenas) PABLO RODRIGUEZ MD Jan 02, 2025 22:17
[2025-01-02] MEDS: ALPRAZolam 0.5 MG TAB PO SCH (22:37)
[2025-01-03] VITALS (19 sets, daily range): BP systolic 131–159; BP diastolic 82–104; PULSE 78–106; RESP 16–19; TEMP 97.2–98.1; O2SAT 88–97
--- NOTE | 2025-01-03 01:38 | DVH ---
CTA Chest with intravenous contrast INDICATION: Rule out pulmonary embolism, elevated d-dimer COMPARISON: None TECHNIQUE: Multidetector spiral CTA of the chest was performed of the chest with intravenous contrast . PULMONARY ANGIOGRAPHY PROTOCOL was utilized using a bolus-tracking technique centered on the main p ulmonary artery. Axial, coronal and sagittal multiplanar and MIP reformats were performed. Radiation Dose : 1. Chest: CTDI volume is 25.01 mGy. Dose-length product is 898.88 mGy*cm The dose indicators for CT are the volume Computed Tomography (CT) Dose Index (CTDIvol) and the Dose Length Product (DLP), and are measured in units of mGy and mGy-cm, respectively. These indicators are not patient dose, but values generated from the CT scanner acquisition factors. The report includes radiation exposure data for exposures received during this examination. Findings: Suboptimal study due to motion artifact. Pulmonary artery: No evidence of pulmonary embolism in main pulmonary arteries and proximal segmental branches. Lungs / Pleura: Right middle lobe atelectasis. No focal airspace consolidation. No pleural fusion or pneumothorax. Heart/Vascular Structures: Normal heart size. No pericardial effusion. Thoracic aorta appears unremar kable. Mediastinum / Lymph Nodes: No evidence of lymphadenopathy. Small hiatal hernia. Musculoskeletal: No acute osseous abnormality. Mild thoracic spondylosis. Soft tissues: Unremarkable. Upper abdomen: Prior gastric surgery. Cholelithiasis. IMPRESSION: Suboptimal study. No evidence of pulmonary embolism in main pulmonary arteries and proximal segmental branches. Right middle lobe atelectasis.
--- NOTE | 2025-01-03 12:52 | DVHPN2 ---
Reviewed: Care Plan, H&P, Labs, Medications, Previous Orders, Radiology Changes from previous H/P or p: No Changes Eyes: No Pain, No Vision change, No Conjunctivae inflammation, No Eyelid inflammation, No Other, No Redness ENT: No Ear pain, No Ear discharge, No Nose pain, No Nose discharge, No Nose congestion, No Mouth pain, No Mouth swelling, No Throat pain, No Throat swelling, No Other Cardiovascular: No Chest Pain, No Palpitations, No Orthopnea, No Paroxysmal Noc. Dyspnea, No Edema, No Lt Headedness, No Other Respiratory: Cough; No Dry; Shortness of breath, SOB with excertion, Wheezing; No Hemoptysis; Pleuritic Pain, Sputum; No Other Gastrointestinal: No Nausea, No Vomiting, No Abdominal Pain, No Diarrhea, No Constipation, No Melena, No Hematochezia, No Other Genitourinary: No Dysuria, No Frequency, No Incontinence, No Hematuria, No Retention, No Other Musculoskeletal: No other, No neck pain, No shoulder pain, No arm pain, No back pain, No hand pain, No leg pain, No foot pain Skin: No Rash, No Lesions, No Jaundice, No Bruising, No Other Objective Vitals Vital Signs Date Time Temp Pulse Resp B/P (MAP) Pulse Ox O2 Delivery O2 Flow Rate FiO2 01/03/25 12:39 98.1 92 16 137/93 (108) 94 98.1 01/03/25 09:40 Nasal Cannula 4.0 01/03/25 09:40 36 Intake/Output Intake and Output 01/03/25 07:00 Intake Total 1318 ml Balance 1318 ml Intake Oral 1018 ml IV Total 300 ml # Voids 1 # Bowel Movements 1 Medications Current Medications Medications Dose Ordered Sig/Cassia Route Start Time Stop Time Status Last Admin Dose Admin Allopurinol 100 mg BID PO 12/27/24 22:00 01/03/25 10:04 100 MG Duloxetine HCl 30 mg DAILY PO 12/28/24 10:00 01/02/25 09:27 30 MG Methocarbamol 750 mg BID PO 12/28/24 10:00 01/03/25 10:01 750 MG Pantoprazole Sodium 40 mg DAILY PO 12/28/24 10:00 01/03/25 10:04 40 MG Pregabalin 100 mg TID PO 12/28/24 06:00 01/03/25 06:56 100 MG Atorvastatin Calcium 20 mg HS PO 12/27/24 22:00 01/02/25 22:34 20 MG Carvedilol 6.25 mg BID PO 12/28/24 10:00 01/03/25 10:03 6.25 MG Azithromycin 250 ml @ 125 mls/hr DAILY IV 12/28/24 10:00 01/03/25 11:41 125 MLS/HR Ceftriaxone Sodium 50 ml @ 100 mls/hr DAILY@09 IV 12/28/24 09:00 01/03/25 09:51 100 MLS/HR Sodium Chloride 10 ml Q8HR IV 12/27/24 22:00 01/03/25 06:57 10 ML Acetaminophen/ Hydrocodone Bitart 1 tab Q4HP PRN PO 12/27/24 16:45 01/02/25 00:01 1 TAB Ondansetron HCl 4 mg Q4HP PRN IV 12/27/24 16:45 Docusate Sodium 100 mg BIDPRN PRN PO 12/27/24 16:45 Acetaminophen 650 mg Q6HP PRN PO 12/27/24 16:45 12/28/24 01:50 650 MG Tamsulosin HCl 0.4 mg DAILY PO 12/28/24 10:00 01/03/25 10:03 0.4 MG Guaifenesin/ Dextromethorphan 15 ml Q8HR PRN PO 12/28/24 12:30 01/02/25 00:02 15 ML Methylprednisolone Sodium Succinate 40 mg Q8HR IV 12/30/24 22:00 01/03/25 06:57 40 MG Clonidine HCl 0.2 mg Q6HP PRN PO 12/30/24 16:45 01/03/25 04:44 0.2 MG Lisinopril 20 mg DAILY PO 01/01/25 10:00 01/03/25 10:04 20 MG Metoprolol Succinate 100 mg DAILY PO 01/01/25 10:00 01/01/25 09:17 100 MG Patient Own Medication 1 QWEEKLY INJ 12/31/24 16:30 12/31/24 16:16 1 Alprazolam 1 mg TIDP PO 01/02/25 14:00 Cancel Alprazolam 1 mg TIDPRN PO 01/02/25 22:00 01/03/25 06:57 1 MG Albuterol 2.5 mg Q4HR NEB 01/02/25 18:00 01/03/25 09:40 2.5 MG Ipratropium [place] 0.5 mg Q4HR NEB 01/02/25 18:00 01/03/25 09:40 0.5 MG Acetylcysteine 200 mg Q8HR NEB 01/02/25 22:00 01/03/25 05:42 200 MG Laboratory Results Laboratory Tests 12/28/24 05:59 Labs and/or images reviewed: Labs reviewed by me, Image(s) reviewed by me Assessment/Plan Assessment/Plan Acute hypoxic respiratory failure, oxygen by nasal cannula Possible community-acquired pneumonia: Rocephin Azithromycin Solu-Medrol consult for pulmonology Dr. Diaz appreciated Congestive heart failure: Consult for Patient does not use oxygen at home Hypertension, Coreg Hyperlipidemia, : Lipitor Gout, BPH: Flomax Anxiety: Patient was placed on Xanax could not tolerate it, DC Xanax Depression: Cymbalta History of gastric bypass surgery On Ozempic for weight loss Flu test negative Magalie test negative D-dimer normal Morbid obesity weight 92 kg Time spent 55 minutes Condition guarded Patient is full code PCP Dr Zraagoza Still complains of shortness of breaths and not feeling well; Spoke with Dr. Diaz who is going to re-evaluate Plan discussed with: Patient My Orders Orders - JF ORTEGA MD Procedure Category Date Status Time Alprazolam Tablet PHA 01/02/25 In Process (Xanax Tablet) 22:00 Date of Service: Jan 03, 2025 Billing Provider: JF ORTEGA MD Common Visit Codes: [id number] INP/OBS CARE(HIGH) JF OTREGA MD Jan 03, 2025 12:52
[2025-01-03] MEDS: AZITHROMYCIN 250 MG TAB PO ONE (17:34)
--- NOTE | 2025-01-03 23:25 | DVHPN2 ---
Progress Note - Dictate Date Seen: Jan 03, 2025 Medical Necessity Reason Pt with a Central, PICC or Fol: No Subjective Patient seen and examined at bedside. Remains on supplemental oxygen Overnight events reviewed. vital signs Vital Sign Date Time Temp Pulse Resp B/P (MAP) Pulse Ox O2 Delivery O2 Flow Rate FiO2 01/03/25 22:00 97 131/89 01/03/25 21:00 97.2 18 95 97.2 01/03/25 19:33 Nasal Cannula* 4 36 Total Intake and Output 01/02/25 01/02/25 01/03/25 15:00 23:00 07:00 Intake Total 300 ml 618 ml 400 ml Balance 300 ml 618 ml 400 ml medications Current Medications Medications Dose Ordered Sig/Cassia Route Start Time Stop Time Status Last Admin Dose Admin Allopurinol 100 mg BID PO 12/27/24 22:00 01/03/25 21:59 100 MG Duloxetine HCl 30 mg DAILY PO 12/28/24 10:00 01/02/25 09:27 30 MG Methocarbamol 750 mg BID PO 12/28/24 10:00 01/03/25 21:59 750 MG Pantoprazole Sodium 40 mg DAILY PO 12/28/24 10:00 01/03/25 10:04 40 MG Pregabalin 100 mg TID PO 12/28/24 06:00 01/03/25 21:58 100 MG Atorvastatin Calcium 20 mg HS PO 12/27/24 22:00 01/02/25 22:34 20 MG Carvedilol 6.25 mg BID PO 12/28/24 10:00 01/03/25 22:00 6.25 MG Ceftriaxone Sodium 50 ml @ 100 mls/hr DAILY@09 IV 12/28/24 09:00 01/03/25 09:51 100 MLS/HR Sodium Chloride 10 ml Q8HR IV 12/27/24 22:00 01/03/25 22:01 10 ML Acetaminophen/ Hydrocodone Bitart 1 tab Q4HP PRN PO 12/27/24 16:45 01/02/25 00:01 1 TAB Ondansetron HCl 4 mg Q4HP PRN IV 12/27/24 16:45 Docusate Sodium 100 mg BIDPRN PRN PO 12/27/24 16:45 Acetaminophen 650 mg Q6HP PRN PO 12/27/24 16:45 12/28/24 01:50 650 MG Tamsulosin HCl 0.4 mg DAILY PO 12/28/24 10:00 01/03/25 10:03 0.4 MG Guaifenesin/ Dextromethorphan 15 ml Q8HR PRN PO 12/28/24 12:30 01/03/25 21:58 15 ML Methylprednisolone Sodium Succinate 40 mg Q8HR IV 12/30/24 22:00 01/03/25 22:01 40 MG Clonidine HCl 0.2 mg Q6HP PRN PO 12/30/24 16:45 01/03/25 04:44 0.2 MG Lisinopril 20 mg DAILY PO 01/01/25 10:00 01/03/25 10:04 20 MG Metoprolol Succinate 100 mg DAILY PO 01/01/25 10:00 01/01/25 09:17 100 MG Patient Own Medication 1 QWEEKLY INJ 12/31/24 16:30 12/31/24 16:16 1 Alprazolam 1 mg TIDP PO 01/02/25 14:00 Cancel Albuterol 2.5 mg Q4HR NEB 01/02/25 18:00 01/03/25 23:17 2.5 MG Ipratropium [place] 0.5 mg Q4HR NEB 01/02/25 18:00 01/03/25 23:17 0.5 MG Acetylcysteine 200 mg Q8HR NEB 01/02/25 22:00 01/03/25 23:17 200 MG Azithromycin 500 mg DAILY PO 01/04/25 10:00 objective Gen.: Patient lying in bed in no apparent distress. On supplemental oxygen. Head: Normocephalic, atraumatic. Eyes: EOMI/PERRLA. Ears: Normal hearing. Normal anatomy. Neck/trachea: Trachea midline, supple. Nose: Normal external anatomy. Mouth: Moist mucous membranes. Chest: Decreased air entry bilaterally. Wheezing, improved. No rhonchi. Cardiovascular: Positive S1, positive S2. Regular rate and rhythm. Abdomen: Positive bowel sounds in all 4 quadrants. Soft, non-tender, non- distended. : Deferred. Rectal: Deferred. Skin: Warm, dry. Intact. Extremities: 2+ radial pulses bilaterally. No lower extremity edema. Neuro: Awake, alert, oriented x3. No gross motor or sensory deficits. Cranial nerves II through XII intact. Gait not assessed. laboratory and microbiology Laboratory Tests 12/28/24 05:59 Test 12/28/24 05:59 Range/Units Serum Glucose 178 H 74-106 mg/dL Assessment/Plan Impression: Acute on chronic hypoxic respiratory failure Dependence on supplemental oxygen Atelectasis Pneumonitis Elevated D-dimer Overweight, BMI 29.0 Events: Remains on supplemental oxygen, 4 LPM NC Taper O2 as tolerated Obtain ambulation pulse oximetry Elevated D-dimer CTA reviewed, no e/o pulmonary embolism. RML atelectasis. Small hiatal hernia. Continue bronchodilators Continue antibiotics IV steroids - taper as tolerated Antitussive for cough Incentive spirometry for atelectasis Protonix for GI prophylaxis DME for nebulizer and nebulizer supplies. Labs and imaging reviewed. Rest of plan as noted below. Plan: Supplemental oxygen Titrate to keep O2 sats above 92%. Continue bronchodilators. Continue antibiotics Continue steroids Antitussive PRN cough Incentive spirometry Monitor renal function. Monitor electrolytes. Supplement as necessary. Monitor ins and outs. DVT prophylaxis. Prognosis: Guarded given patient's multiple co-morbidities. Rest of plan per hospitalist and other consultants. Thank you, Dr. Franz, for allowing me to participate in this patient's care. Further recommendations will depend on the patient's clinical course. Please do not hesitate to contact me if you have any questions or concerns. This medical document was created using an electronic medical record system with [employer] dictation system. Although these documentations are being carefully reviewed, there may still be some phonetic and typographical changes. The errors are purely typographical, due to imperfection on the software program, and do not reflect any compromise in the patient's medical care. Dietary Evaluation Review Recommendations by RD: Dietary education by RD Comments: 1) Add 60g CCHO restriction to cardiac diet order 2) Collect HbA1c 3) Refer to RD/CDCES for weight management 4) Continue plan of care Expected Outcomes/Goals: 1) appetite and labs to improve 2) f/u in 5 days Plan discussed with: Patient, Other (MILLA Duenas) PABLO RODRIGUEZ MD Jan 03, 2025 23:25
[2025-01-04] VITALS (19 sets, daily range): BP systolic 108–159; BP diastolic 73–101; PULSE 60–93; RESP 17–20; TEMP 97.2–98; O2SAT 90–97
[2025-01-04] MEDS: AZITHROMYCIN 250 MG TAB PO SCH (09:24)
--- NOTE | 2025-01-04 23:26 | DVHPN2 ---
Progress Note - Dictate Date Seen: Jan 04, 2025 Medical Necessity Reason Pt with a Central, PICC or Fol: No Subjective Patient seen and examined at bedside. Remains on supplemental oxygen Overnight events reviewed. vital signs Vital Sign Date Time Temp Pulse Resp B/P (MAP) Pulse Ox O2 Delivery O2 Flow Rate FiO2 01/04/25 22:00 97 Oxymizer 6 N/A 01/04/25 21:59 82 20 01/04/25 21:00 98.0 108/73 (85) 98.0 Total Intake and Output 01/03/25 01/03/25 01/04/25 15:00 23:00 07:00 Intake Total 50 ml 800 ml 800 ml Output Total 1200 ml Balance 50 ml -400 ml 800 ml medications Current Medications Medications Dose Ordered Sig/Cassia Route Start Time Stop Time Status Last Admin Dose Admin Allopurinol 100 mg BID PO 12/27/24 22:00 01/04/25 20:37 100 MG Duloxetine HCl 30 mg DAILY PO 12/28/24 10:00 01/04/25 09:23 30 MG Methocarbamol 750 mg BID PO 12/28/24 10:00 01/04/25 20:37 750 MG Pantoprazole Sodium 40 mg DAILY PO 12/28/24 10:00 01/04/25 09:24 40 MG Pregabalin 100 mg TID PO 12/28/24 06:00 01/04/25 20:37 100 MG Atorvastatin Calcium 20 mg HS PO 12/27/24 22:00 01/04/25 20:37 20 MG Carvedilol 6.25 mg BID PO 12/28/24 10:00 01/04/25 20:38 6.25 MG Ceftriaxone Sodium 50 ml @ 100 mls/hr DAILY@09 IV 12/28/24 09:00 01/04/25 09:23 100 MLS/HR Sodium Chloride 10 ml Q8HR IV 12/27/24 22:00 01/04/25 20:48 10 ML Acetaminophen/ Hydrocodone Bitart 1 tab Q4HP PRN PO 12/27/24 16:45 01/02/25 00:01 1 TAB Ondansetron HCl 4 mg Q4HP PRN IV 12/27/24 16:45 Docusate Sodium 100 mg BIDPRN PRN PO 12/27/24 16:45 Acetaminophen 650 mg Q6HP PRN PO 12/27/24 16:45 12/28/24 01:50 650 MG Tamsulosin HCl 0.4 mg DAILY PO 12/28/24 10:00 01/04/25 09:24 0.4 MG Guaifenesin/ Dextromethorphan 15 ml Q8HR PRN PO 12/28/24 12:30 01/04/25 15:50 15 ML Methylprednisolone Sodium Succinate 40 mg Q8HR IV 12/30/24 22:00 01/04/25 20:40 40 MG Clonidine HCl 0.2 mg Q6HP PRN PO 12/30/24 16:45 01/04/25 05:19 0.2 MG Lisinopril 20 mg DAILY PO 01/01/25 10:00 01/04/25 09:26 20 MG Metoprolol Succinate 100 mg DAILY PO 01/01/25 10:00 01/04/25 09:25 100 MG Patient Own Medication 1 QWEEKLY INJ 12/31/24 16:30 12/31/24 16:16 1 Alprazolam 1 mg TIDP PO 01/02/25 14:00 Cancel Albuterol 2.5 mg Q4HR NEB 01/02/25 18:00 01/04/25 21:57 2.5 MG Ipratropium [place] 0.5 mg Q4HR NEB 01/02/25 18:00 01/04/25 21:57 0.5 MG Acetylcysteine 200 mg Q8HR NEB 01/02/25 22:00 01/04/25 21:58 200 MG Azithromycin 500 mg DAILY PO 01/04/25 10:00 01/04/25 09:24 500 MG objective Gen.: Patient lying in bed in no apparent distress. On supplemental oxygen. Head: Normocephalic, atraumatic. Eyes: EOMI/PERRLA. Ears: Normal hearing. Normal anatomy. Neck/trachea: Trachea midline, supple. Nose: Normal external anatomy. Mouth: Moist mucous membranes. Chest: Decreased air entry bilaterally. Wheezing, improved. No rhonchi. Cardiovascular: Positive S1, positive S2. Regular rate and rhythm. Abdomen: Positive bowel sounds in all 4 quadrants. Soft, non-tender, non- distended. : Deferred. Rectal: Deferred. Skin: Warm, dry. Intact. Extremities: 2+ radial pulses bilaterally. No lower extremity edema. Neuro: Awake, alert, oriented x3. No gross motor or sensory deficits. Cranial nerves II through XII intact. Gait not assessed. laboratory and microbiology Laboratory Tests 12/28/24 05:59 Test 12/28/24 05:59 Range/Units Serum Glucose 178 H 74-106 mg/dL Assessment/Plan Impression: Acute on chronic hypoxic respiratory failure Dependence on supplemental oxygen Atelectasis Pneumonitis Elevated D-dimer Overweight, BMI 29.0 Events: Remains on supplemental oxygen, 4 LPM NC Taper O2 as tolerated Obtain ambulation pulse oximetry Elevated D-dimer CTA reviewed, no e/o pulmonary embolism. RML atelectasis. Small hiatal hernia. Continue bronchodilators/Pulmicort Continue antibiotics IV steroids - taper as tolerated Antitussive for cough Incentive spirometry for atelectasis Protonix for GI prophylaxis PT evaluation DME for nebulizer and nebulizer supplies. Labs and imaging reviewed. Rest of plan as noted below. Plan: Supplemental oxygen Titrate to keep O2 sats above 92%. Continue bronchodilators. Continue antibiotics Continue steroids Antitussive PRN cough Incentive spirometry Monitor renal function. Monitor electrolytes. Supplement as necessary. Monitor ins and outs. DVT prophylaxis. Prognosis: Guarded given patient's multiple co-morbidities. Rest of plan per hospitalist and other consultants. Thank you, Dr. Franz, for allowing me to participate in this patient's care. Further recommendations will depend on the patient's clinical course. Please do not hesitate to contact me if you have any questions or concerns. This medical document was created using an electronic medical record system with [employer] dictation system. Although these documentations are being carefully reviewed, there may still be some phonetic and typographical changes. The errors are purely typographical, due to imperfection on the software program, and do not reflect any compromise in the patient's medical care. Dietary Evaluation Review Recommendations by RD: Dietary education by RD Comments: 1) Add 60g CCHO restriction to cardiac diet order 2) Collect HbA1c 3) Refer to RD/CDCES for weight management 4) Continue plan of care Expected Outcomes/Goals: 1) appetite and labs to improve 2) f/u in 5 days Plan discussed with: Patient, Other (MILLA Devlin) PABLO RODRIGUEZ MD Jan 04, 2025 23:26
[2025-01-05] VITALS (18 sets, daily range): BP systolic 134–172; BP diastolic 89–107; PULSE 71–91; RESP 16–20; TEMP 97.7–98.3; O2SAT 89–98
--- NOTE | 2025-01-05 10:35 | DVHPN2 ---
Reviewed: Care Plan, H&P, Labs, Medications, Previous Orders, Radiology Changes from previous H/P or p: No Changes Eyes: No Pain, No Vision change, No Conjunctivae inflammation, No Eyelid inflammation, No Other, No Redness ENT: No Ear pain, No Ear discharge, No Nose pain, No Nose discharge, No Nose congestion, No Mouth pain, No Mouth swelling, No Throat pain, No Throat swelling, No Other Cardiovascular: No Chest Pain, No Palpitations, No Orthopnea, No Paroxysmal Noc. Dyspnea, No Edema, No Lt Headedness, No Other Respiratory: Cough; No Dry; Shortness of breath, SOB with excertion, Wheezing; No Hemoptysis; Pleuritic Pain, Sputum; No Other Gastrointestinal: No Nausea, No Vomiting, No Abdominal Pain, No Diarrhea, No Constipation, No Melena, No Hematochezia, No Other Genitourinary: No Dysuria, No Frequency, No Incontinence, No Hematuria, No Retention, No Other Musculoskeletal: No other, No neck pain, No shoulder pain, No arm pain, No back pain, No hand pain, No leg pain, No foot pain Skin: No Rash, No Lesions, No Jaundice, No Bruising, No Other Objective Vitals Vital Signs Date Time Temp Pulse Resp B/P (MAP) Pulse Ox O2 Delivery O2 Flow Rate FiO2 01/05/25 09:55 150/91 01/05/25 09:54 89 01/05/25 09:48 18 92 01/05/25 09:42 Oxymizer 5.0 01/05/25 09:42 N/A 01/05/25 09:00 97.7 97.7 Intake/Output Intake and Output 01/05/25 07:00 Intake Total 2230 ml Balance 2230 ml Intake Oral 2180 ml IV Total 50 ml # Voids 11 # Bowel Movements 2 Medications Current Medications Medications Dose Ordered Sig/Cassia Route Start Time Stop Time Status Last Admin Dose Admin Allopurinol 100 mg BID PO 12/27/24 22:00 01/05/25 09:53 100 MG Duloxetine HCl 30 mg DAILY PO 12/28/24 10:00 01/05/25 09:53 30 MG Methocarbamol 750 mg BID PO 12/28/24 10:00 01/05/25 09:52 750 MG Pantoprazole Sodium 40 mg DAILY PO 12/28/24 10:00 01/05/25 09:53 40 MG Pregabalin 100 mg TID PO 12/28/24 06:00 01/05/25 06:29 100 MG Atorvastatin Calcium 20 mg HS PO 12/27/24 22:00 01/04/25 20:37 20 MG Carvedilol 6.25 mg BID PO 12/28/24 10:00 01/05/25 09:54 6.25 MG Ceftriaxone Sodium 50 ml @ 100 mls/hr DAILY@09 IV 12/28/24 09:00 01/05/25 09:52 100 MLS/HR Sodium Chloride 10 ml Q8HR IV 12/27/24 22:00 01/05/25 06:00 10 ML Acetaminophen/ Hydrocodone Bitart 1 tab Q4HP PRN PO 12/27/24 16:45 01/02/25 00:01 1 TAB Ondansetron HCl 4 mg Q4HP PRN IV 12/27/24 16:45 Docusate Sodium 100 mg BIDPRN PRN PO 12/27/24 16:45 Acetaminophen 650 mg Q6HP PRN PO 12/27/24 16:45 12/28/24 01:50 650 MG Tamsulosin HCl 0.4 mg DAILY PO 12/28/24 10:00 01/05/25 09:52 0.4 MG Guaifenesin/ Dextromethorphan 15 ml Q8HR PRN PO 12/28/24 12:30 01/04/25 15:50 15 ML Methylprednisolone Sodium Succinate 40 mg Q8HR IV 12/30/24 22:00 01/05/25 06:32 40 MG Clonidine HCl 0.2 mg Q6HP PRN PO 12/30/24 16:45 01/04/25 05:19 0.2 MG Lisinopril 20 mg DAILY PO 01/01/25 10:00 01/05/25 09:55 20 MG Metoprolol Succinate 100 mg DAILY PO 01/01/25 10:00 01/05/25 09:53 100 MG Patient Own Medication 1 QWEEKLY INJ 12/31/24 16:30 12/31/24 16:16 1 Alprazolam 1 mg TIDP PO 01/02/25 14:00 Cancel Albuterol 2.5 mg Q4HR NEB 01/02/25 18:00 01/05/25 09:42 2.5 MG Ipratropium [place] 0.5 mg Q4HR NEB 01/02/25 18:00 01/05/25 09:42 0.5 MG Acetylcysteine 200 mg Q8HR NEB 01/02/25 22:00 01/05/25 07:21 200 MG Azithromycin 500 mg DAILY PO 01/04/25 10:00 01/05/25 09:52 500 MG Laboratory Results Laboratory Tests 12/28/24 05:59 Labs and/or images reviewed: Labs reviewed by me, Image(s) reviewed by me Assessment/Plan Assessment/Plan Acute hypoxic respiratory failure, oxygen by nasal cannula Possible community-acquired pneumonia: Rocephin Azithromycin Solu-Medrol consult for pulmonology Dr. Diaz appreciated Congestive heart failure: Consult for Patient does not use oxygen at home Hypertension, Coreg Hyperlipidemia, : Lipitor Gout, BPH: Flomax Anxiety: Patient was placed on Xanax could not tolerate it, DC Xanax Depression: Cymbalta History of gastric bypass surgery On Ozempic for weight loss Flu test negative Magalie test negative D-dimer normal Morbid obesity weight 92 kg Time spent 55 minutes Condition guarded Patient is full code PCP Dr Zaragoza Still complains of shortness of breaths and not feeling well; Spoke with Dr. Diaz who is going to re-evaluate, CT chest without contrast ordered, changed albuterol and Atrovent med-nebs to q.4 hours scheduled. Plan discussed with: Patient My Orders Orders - JF ORTEGA MD Procedure Category Date Status Time Pt Request For Service PT 01/04/25 Logged 11:10 Pt Request For Service PT 01/04/25 Logged 11:[address] 01/05/25 Logged 10:29 Ipratropium Medneb PHA 01/05/25 Verified (Atrovent Medneb) 14:00 Date of Service: Jan 05, 2025 Billing Provider: JF ORTEGA MD Common Visit Codes: [id number] INP/OBS CARE(HIGH) JF ORTEGA MD Jan 05, 2025 10:35
--- NOTE | 2025-01-05 11:23 | DVH ---
Procedure: CT CHEST WITHOUT CONTRAST Reason for study/Clinical History: Persistent pneumonia Comparison Study: CT dated 01/02/2025 TECHNIQUE: Multidetector CT of the chest was performed from the lung apices to the upper abdomen with out the use of intravenous contract. Axial, coronal and sagittal multiplanar reformats were performed . Radiation Dose Information: CT Dose: CTDI volume is 13.55 mGy. Dose-length product is 464.97 mGy*cm The dose indicators for CT are the volume Computed Tomography (CT) Dose Index (CTDIvol) and the Dose Length Product (DLP), and are measured in units of mGy and mGy-cm, respectively. These indicators are not patient dose, but values generated from the CT scanner acquisition factors. The report includes radiation exposure data for exposures received during this examination. FINDINGS: Lower neck: Unremarkable. Lungs: Diffuse peripheral increased reticulation most prominent at the lung bases, [id number]- right. Mild diffuse peripheral tree-in-bud nodularity in the lower lobes, [id number]-left. P ersistent partial collapse of the right middle lobe. Hazy ground-glass airspace opacities in the righ t upper lobe. Heart/Vascular Structures: Cardiomegaly. Coronary artery calcifications. Vascular calcifications of t he aorta. Lymph Nodes: No adenopathy Pleura: No pleural effusion or significant pneumothorax. Musculoskeletal: No acute osseous abnormality. Soft tissues: Normal. Upper abdomen: Postsurgical changes of the stomach. IMPRESSION: Persistent partial collapse of the right middle lobe. Unchanged multifocal airspace disease. Probable superimposed early/mild changes of pulmonary fibrosis. Radiation optimization: All CT scans at this facility use at least one of these dose optimization link hniques: automated exposure control mA and/or kV adjustment per patient size (includes targeted exam s where dose is matched to clinical indication) or iterative reconstruction.
[2025-01-05] MEDS: IPRATROPIUM BROM 0.5 MG/2.5ML INH SOL NEB SCH (14:17)
--- NOTE | 2025-01-05 23:40 | DVHPN2 ---
Progress Note - Dictate Date Seen: Jan 05, 2025 Medical Necessity Reason Pt with a Central, PICC or Fol: No Subjective Patient seen and examined at bedside. Remains on supplemental oxygen Overnight events reviewed. vital signs Vital Sign Date Time Temp Pulse Resp B/P (MAP) Pulse Ox O2 Delivery O2 Flow Rate FiO2 01/05/25 22:52 71 16 92 01/05/25 22:44 Oxymizer 6.0 01/05/25 22:44 N/A 01/05/25 21:42 143/89 01/05/25 21:00 97.7 97.7 Total Intake and Output 01/04/25 01/04/25 01/05/25 15:00 23:00 07:00 Intake Total 50 ml 1280 ml 900 ml Balance 50 ml 1280 ml 900 ml medications Current Medications Medications Dose Ordered Sig/Cassia Route Start Time Stop Time Status Last Admin Dose Admin Allopurinol 100 mg BID PO 12/27/24 22:00 01/05/25 21:41 100 MG Duloxetine HCl 30 mg DAILY PO 12/28/24 10:00 01/05/25 09:53 30 MG Methocarbamol 750 mg BID PO 12/28/24 10:00 01/05/25 21:42 750 MG Pantoprazole Sodium 40 mg DAILY PO 12/28/24 10:00 01/05/25 09:53 40 MG Pregabalin 100 mg TID PO 12/28/24 06:00 01/05/25 21:41 100 MG Atorvastatin Calcium 20 mg HS PO 12/27/24 22:00 01/05/25 21:41 20 MG Carvedilol 6.25 mg BID PO 12/28/24 10:00 01/05/25 21:42 6.25 MG Ceftriaxone Sodium 50 ml @ 100 mls/hr DAILY@09 IV 12/28/24 09:00 01/05/25 09:52 100 MLS/HR Sodium Chloride 10 ml Q8HR IV 12/27/24 22:00 01/05/25 21:43 10 ML Ondansetron HCl 4 mg Q4HP PRN IV 12/27/24 16:45 Docusate Sodium 100 mg BIDPRN PRN PO 12/27/24 16:45 Acetaminophen 650 mg Q6HP PRN PO 12/27/24 16:45 12/28/24 01:50 650 MG Tamsulosin HCl 0.4 mg DAILY PO 12/28/24 10:00 01/05/25 09:52 0.4 MG Guaifenesin/ Dextromethorphan 15 ml Q8HR PRN PO 12/28/24 12:30 01/04/25 15:50 15 ML Methylprednisolone Sodium Succinate 40 mg Q8HR IV 12/30/24 22:00 01/05/25 21:42 40 MG Clonidine HCl 0.2 mg Q6HP PRN PO 12/30/24 16:45 01/05/25 18:48 0.2 MG Lisinopril 20 mg DAILY PO 01/01/25 10:00 01/05/25 09:55 20 MG Metoprolol Succinate 100 mg DAILY PO 01/01/25 10:00 01/05/25 09:53 100 MG Patient Own Medication 1 QWEEKLY INJ 12/31/24 16:30 12/31/24 16:16 1 Alprazolam 1 mg TIDP PO 01/02/25 14:00 Cancel Albuterol 2.5 mg Q4HR NEB 01/02/25 18:00 01/05/25 22:44 2.5 MG Acetylcysteine 200 mg Q8HR NEB 01/02/25 22:00 01/05/25 22:44 200 MG Azithromycin 500 mg DAILY PO 01/04/25 10:00 01/05/25 09:52 500 MG Ipratropium [place] 0.5 mg Q4HR NEB 01/05/25 14:00 01/05/25 22:44 0.5 MG objective Gen.: Patient lying in bed in no apparent distress. On supplemental oxygen. Head: Normocephalic, atraumatic. Eyes: EOMI/PERRLA. Ears: Normal hearing. Normal anatomy. Neck/trachea: Trachea midline, supple. Nose: Normal external anatomy. Mouth: Moist mucous membranes. Chest: Decreased air entry bilaterally. Wheezing, improved. No rhonchi. Cardiovascular: Positive S1, positive S2. Regular rate and rhythm. Abdomen: Positive bowel sounds in all 4 quadrants. Soft, non-tender, non- distended. : Deferred. Rectal: Deferred. Skin: Warm, dry. Intact. Extremities: 2+ radial pulses bilaterally. No lower extremity edema. Neuro: Awake, alert, oriented x3. No gross motor or sensory deficits. Cranial nerves II through XII intact. Gait not assessed. laboratory and microbiology Laboratory Tests 12/28/24 05:59 Test 12/28/24 05:59 Range/Units Serum Glucose 178 H 74-106 mg/dL Assessment/Plan Impression: Acute on chronic hypoxic respiratory failure Dependence on supplemental oxygen Atelectasis Pneumonitis Elevated D-dimer, PE ruled out Overweight, BMI 29.0 Events: Remains on supplemental oxygen, 6 LPM Oxymizer Taper O2 as tolerated Obtain ambulation pulse oximetry CT chest reviewed; persistent partial collapse of the right middle lobe. Unchanged multifocal airspace disease. Probable superimposed early/mild changes of pulmonary fibrosis. CTA reviewed, no e/o pulmonary embolism. RML atelectasis. Small hiatal hernia. Continue bronchodilators Continue antibiotics IV steroids - taper as tolerated Antitussive for cough Incentive spirometry for atelectasis Protonix for GI prophylaxis Continue physical therapy DME for nebulizer and nebulizer supplies. Labs and imaging reviewed. Rest of plan as noted below. Plan: Supplemental oxygen Titrate to keep O2 sats above 92%. Continue bronchodilators. Continue antibiotics Continue steroids Antitussive PRN cough Incentive spirometry Monitor renal function. Monitor electrolytes. Supplement as necessary. Monitor ins and outs. DVT prophylaxis. Prognosis: Guarded given patient's multiple co-morbidities. Rest of plan per hospitalist and other consultants. Thank you, Dr. Franz, for allowing me to participate in this patient's care. Further recommendations will depend on the patient's clinical course. Please do not hesitate to contact me if you have any questions or concerns. This medical document was created using an electronic medical record system with [employer] dictation system. Although these documentations are being carefully reviewed, there may still be some phonetic and typographical changes. The errors are purely typographical, due to imperfection on the software program, and do not reflect any compromise in the patient's medical care. Dietary Evaluation Review Recommendations by RD: Dietary education by RD Comments: 1) Add 60g CCHO restriction to cardiac diet order 2) Collect HbA1c 3) Refer to RD/CDCES for weight management 4) Continue plan of care Expected Outcomes/Goals: 1) appetite and labs to improve 2) f/u in 5 days Plan discussed with: Patient, Other (MILLA Singh) PABLO RODRIGUEZ MD Jan 05, 2025 23:40
[2025-01-06] VITALS (20 sets, daily range): BP systolic 143–179; BP diastolic 86–111; PULSE 65–89; RESP 16–20; TEMP 97.5–98.2; O2SAT 85–97
--- NOTE | 2025-01-06 09:49 | DVHPN2 ---
Reviewed: Care Plan, H&P, Labs, Medications, Previous Orders, Radiology Changes from previous H/P or p: No Changes Eyes: No Pain, No Vision change, No Conjunctivae inflammation, No Eyelid inflammation, No Other, No Redness ENT: No Ear pain, No Ear discharge, No Nose pain, No Nose discharge, No Nose congestion, No Mouth pain, No Mouth swelling, No Throat pain, No Throat swelling, No Other Cardiovascular: No Chest Pain, No Palpitations, No Orthopnea, No Paroxysmal Noc. Dyspnea, No Edema, No Lt Headedness, No Other Respiratory: Cough; No Dry; Shortness of breath, SOB with excertion, Wheezing; No Hemoptysis; Pleuritic Pain, Sputum; No Other Gastrointestinal: No Nausea, No Vomiting, No Abdominal Pain, No Diarrhea, No Constipation, No Melena, No Hematochezia, No Other Genitourinary: No Dysuria, No Frequency, No Incontinence, No Hematuria, No Retention, No Other Musculoskeletal: No other, No neck pain, No shoulder pain, No arm pain, No back pain, No hand pain, No leg pain, No foot pain Skin: No Rash, No Lesions, No Jaundice, No Bruising, No Other Objective Vitals Vital Signs Date Time Temp Pulse Resp B/P (MAP) Pulse Ox O2 Delivery O2 Flow Rate FiO2 01/06/25 09:14 98.2 74 18 158/99 (118) 94 98.2 01/06/25 08:00 Oxymizer 6 N/A Intake/Output Intake and Output 01/06/25 07:00 Intake Total 1706 ml Balance 1706 ml Intake Oral 1656 ml IV Total 50 ml # Voids 5 # Bowel Movements 3 Medications Current Medications Medications Dose Ordered Sig/Cassia Route Start Time Stop Time Status Last Admin Dose Admin Allopurinol 100 mg BID PO 12/27/24 22:00 01/05/25 21:41 100 MG Duloxetine HCl 30 mg DAILY PO 12/28/24 10:00 01/05/25 09:53 30 MG Methocarbamol 750 mg BID PO 12/28/24 10:00 01/05/25 21:42 750 MG Pantoprazole Sodium 40 mg DAILY PO 12/28/24 10:00 01/05/25 09:53 40 MG Pregabalin 100 mg TID PO 12/28/24 06:00 01/06/25 05:02 100 MG Atorvastatin Calcium 20 mg HS PO 12/27/24 22:00 01/05/25 21:41 20 MG Carvedilol 6.25 mg BID PO 12/28/24 10:00 01/05/25 21:42 6.25 MG Ceftriaxone Sodium 50 ml @ 100 mls/hr DAILY@09 IV 12/28/24 09:00 01/06/25 08:52 100 MLS/HR Sodium Chloride 10 ml Q8HR IV 12/27/24 22:00 01/06/25 05:07 10 ML Ondansetron HCl 4 mg Q4HP PRN IV 12/27/24 16:45 Docusate Sodium 100 mg BIDPRN PRN PO 12/27/24 16:45 Acetaminophen 650 mg Q6HP PRN PO 12/27/24 16:45 12/28/24 01:50 650 MG Tamsulosin HCl 0.4 mg DAILY PO 12/28/24 10:00 01/05/25 09:52 0.4 MG Guaifenesin/ Dextromethorphan 15 ml Q8HR PRN PO 12/28/24 12:30 01/04/25 15:50 15 ML Methylprednisolone Sodium Succinate 40 mg Q8HR IV 12/30/24 22:00 01/06/25 05:02 40 MG Clonidine HCl 0.2 mg Q6HP PRN PO 12/30/24 16:45 01/06/25 05:07 0.2 MG Lisinopril 20 mg DAILY PO 01/01/25 10:00 01/05/25 09:55 20 MG Metoprolol Succinate 100 mg DAILY PO 01/01/25 10:00 01/05/25 09:53 100 MG Patient Own Medication 1 QWEEKLY INJ 12/31/24 16:30 12/31/24 16:16 1 Alprazolam 1 mg TIDP PO 01/02/25 14:00 Cancel Albuterol 2.5 mg Q4HR NEB 01/02/25 18:00 01/06/25 07:03 2.5 MG Acetylcysteine 200 mg Q8HR NEB 01/02/25 22:00 01/06/25 07:03 200 MG Azithromycin 500 mg DAILY PO 01/04/25 10:00 01/05/25 09:52 500 MG Ipratropium [place] 0.5 mg Q4HR NEB 01/05/25 14:00 01/06/25 07:03 0.5 MG Laboratory Results Laboratory Tests 12/28/24 05:59 Labs and/or images reviewed: Labs reviewed by me, Image(s) reviewed by me Assessment/Plan Assessment/Plan Acute hypoxic respiratory failure, oxygen 6 L by Oxymizer Possible community-acquired pneumonia: Rocephin Azithromycin Solu-Medrol consult for pulmonology Dr. Diaz appreciated Congestive heart failure: Consult for Patient does not use oxygen at home Hypertension, Coreg Hyperlipidemia, : Lipitor Gout, BPH: Flomax Anxiety: Patient was placed on Xanax could not tolerate it, DC Xanax Depression: Cymbalta History of gastric bypass surgery On Ozempic for weight loss Flu test negative Magalie test negative D-dimer normal Morbid obesity weight 92 kg Time spent 55 minutes Condition guarded Patient is full code PCP Dr Zaragoza Still complains of shortness of breaths and not feeling well; Spoke with Dr. Diaz who is going to re-evaluate, CT chest without contrast ordered, changed albuterol and Atrovent med-nebs to q.4 hours scheduled. Patient is still on 6 L of oxygen by nasal cannula: CT chest shows persistent multifocal disease with right middle lobe collapse' we will repeat flu test COVID test blood cultures Plan discussed with: Patient My Orders Orders - JF ORTEGA MD Procedure Category Date Status Time Chest Without Contrast CT 01/05/25 Resulted 10:29 Ipratropium Medneb PHA 01/05/25 In Process (Atrovent Medneb) 14:00 Covid19 Antigen [facility] LAB 01/06/25 Verified Rapid Influenza A&B LAB 01/06/25 Verified 09:46 Blood Culture JOSÉ 01/06/25 Verified 09:46 Date of Service: Jan 06, 2025 Billing Provider: JF ORTEGA MD Common Visit Codes: [id number] INP/OBS CARE(HIGH) JF ORTEGA MD Jan 06, 2025 09:49
[2025-01-06 21:19] LABS: COVID19 ANTIGEN SOFIA FIA NEGATIVE (NEGATIVE); Rapid Influenza A Negative (Negative); Rapid Influenza B Negative (Negative)
--- NOTE | 2025-01-06 23:37 | DVHPN2 ---
Progress Note - Dictate Date Seen: Jan 06, 2025 Medical Necessity Reason Pt with a Central, PICC or Fol: No Subjective Patient seen and examined at bedside. Remains on supplemental oxygen Overnight events reviewed. vital signs Vital Sign Date Time Temp Pulse Resp B/P (MAP) Pulse Ox O2 Delivery O2 Flow Rate FiO2 01/06/25 22:17 75 18 97 01/06/25 22:09 Oxymizer 6.0 01/06/25 22:09 52 52 01/06/25 21:40 146/89 01/06/25 21:00 97.6 97.6 Total Intake and Output 01/05/25 01/05/25 01/06/25 15:00 23:00 07:00 Intake Total 50 ml 1040 ml 616 ml Balance 50 ml 1040 ml 616 ml medications Current Medications Medications Dose Ordered Sig/Cassia Route Start Time Stop Time Status Last Admin Dose Admin Allopurinol 100 mg BID PO 12/27/24 22:00 01/06/25 21:39 100 MG Duloxetine HCl 30 mg DAILY PO 12/28/24 10:00 01/06/25 11:11 30 MG Methocarbamol 750 mg BID PO 12/28/24 10:00 01/06/25 21:39 750 MG Pantoprazole Sodium 40 mg DAILY PO 12/28/24 10:00 01/06/25 11:12 40 MG Pregabalin 100 mg TID PO 12/28/24 06:00 01/06/25 21:39 100 MG Atorvastatin Calcium 20 mg HS PO 12/27/24 22:00 01/06/25 21:39 20 MG Carvedilol 6.25 mg BID PO 12/28/24 10:00 01/06/25 21:40 6.25 MG Ceftriaxone Sodium 50 ml @ 100 mls/hr DAILY@09 IV 12/28/24 09:00 01/06/25 08:52 100 MLS/HR Sodium Chloride 10 ml Q8HR IV 12/27/24 22:00 01/06/25 21:38 10 ML Ondansetron HCl 4 mg Q4HP PRN IV 12/27/24 16:45 Docusate Sodium 100 mg BIDPRN PRN PO 12/27/24 16:45 Acetaminophen 650 mg Q6HP PRN PO 12/27/24 16:45 12/28/24 01:50 650 MG Tamsulosin HCl 0.4 mg DAILY PO 12/28/24 10:00 01/06/25 11:11 0.4 MG Guaifenesin/ Dextromethorphan 15 ml Q8HR PRN PO 12/28/24 12:30 01/04/25 15:50 15 ML Methylprednisolone Sodium Succinate 40 mg Q8HR IV 12/30/24 22:00 01/06/25 21:38 40 MG Clonidine HCl 0.2 mg Q6HP PRN PO 12/30/24 16:45 01/06/25 12:25 0.2 MG Lisinopril 20 mg DAILY PO 01/01/25 10:00 01/06/25 11:14 20 MG Metoprolol Succinate 100 mg DAILY PO 01/01/25 10:00 01/06/25 11:14 100 MG Patient Own Medication 1 QWEEKLY INJ 12/31/24 16:30 12/31/24 16:16 1 Alprazolam 1 mg TIDP PO 01/02/25 14:00 Cancel Albuterol 2.5 mg Q4HR NEB 01/02/25 18:00 01/06/25 22:09 2.5 MG Acetylcysteine 200 mg Q8HR NEB 01/02/25 22:00 01/06/25 22:09 200 MG Azithromycin 500 mg DAILY PO 01/04/25 10:00 01/06/25 11:14 500 MG Ipratropium [place] 0.5 mg Q4HR NEB 01/05/25 14:00 01/06/25 22:09 0.5 MG objective Gen.: Patient lying in bed in no apparent distress. On supplemental oxygen. Head: Normocephalic, atraumatic. Eyes: EOMI/PERRLA. Ears: Normal hearing. Normal anatomy. Neck/trachea: Trachea midline, supple. Nose: Normal external anatomy. Mouth: Moist mucous membranes. Chest: Decreased air entry bilaterally. Wheezing, improved. No rhonchi. Cardiovascular: Positive S1, positive S2. Regular rate and rhythm. Abdomen: Positive bowel sounds in all 4 quadrants. Soft, non-tender, non- distended. : Deferred. Rectal: Deferred. Skin: Warm, dry. Intact. Extremities: 2+ radial pulses bilaterally. No lower extremity edema. Neuro: Awake, alert, oriented x3. No gross motor or sensory deficits. Cranial nerves II through XII intact. Gait not assessed. laboratory and microbiology Laboratory Tests 12/28/24 05:59 Test 12/28/24 05:59 Range/Units Serum Glucose 178 H 74-106 mg/dL Assessment/Plan Impression: Acute on chronic hypoxic respiratory failure Dependence on supplemental oxygen Atelectasis Pneumonitis Elevated D-dimer, PE ruled out Overweight, BMI 29.0 Events: Remains on supplemental oxygen, 6 LPM Oxymizer Taper O2 as tolerated Obtain ambulation pulse oximetry Patient is out of bed to chair Continue physical therapy CT chest reviewed; persistent partial collapse of the right middle lobe. Unchanged multifocal airspace disease. Probable superimposed early/mild changes of pulmonary fibrosis. CTA reviewed, no e/o pulmonary embolism. RML atelectasis. Small hiatal hernia. Continue bronchodilators Continue antibiotics IV steroids - taper as tolerated Antitussive PRN cough Incentive spirometry for atelectasis Protonix for GI prophylaxis DME for nebulizer and nebulizer supplies. Labs and imaging reviewed. Rest of plan as noted below. Plan: Supplemental oxygen Titrate to keep O2 sats above 92%. Continue bronchodilators. Continue antibiotics Continue steroids Antitussive PRN cough Incentive spirometry Monitor renal function. Monitor electrolytes. Supplement as necessary. Monitor ins and outs. DVT prophylaxis. Prognosis: Guarded given patient's multiple co-morbidities. Rest of plan per hospitalist and other consultants. Thank you, Dr. Franz, for allowing me to participate in this patient's care. Further recommendations will depend on the patient's clinical course. Please do not hesitate to contact me if you have any questions or concerns. This medical document was created using an electronic medical record system with [employer] dictation system. Although these documentations are being carefully reviewed, there may still be some phonetic and typographical changes. The errors are purely typographical, due to imperfection on the software program, and do not reflect any compromise in the patient's medical care. Dietary Evaluation Review Recommendations by RD: Dietary education by RD Comments: 1) Add 60g CCHO restriction to cardiac diet order 2) Collect HbA1c 3) Refer to RD/CDCES for weight management 4) Continue plan of care Expected Outcomes/Goals: 1) appetite and labs to improve 2) f/u in 5 days Plan discussed with: Patient, Other (MILLA Mandel) PABLO RODRIGUEZ MD Jan 06, 2025 23:37
[2025-01-07] VITALS (17 sets, daily range): BP systolic 97–142; BP diastolic 58–92; PULSE 68–92; RESP 17–20; TEMP 97.5–98.1; O2SAT 90–99
--- NOTE | 2025-01-07 11:09 | DVHPN2 ---
Reviewed: Care Plan, H&P, Labs, Medications, Previous Orders, Radiology Changes from previous H/P or p: No Changes Eyes: No Pain, No Vision change, No Conjunctivae inflammation, No Eyelid inflammation, No Other, No Redness ENT: No Ear pain, No Ear discharge, No Nose pain, No Nose discharge, No Nose congestion, No Mouth pain, No Mouth swelling, No Throat pain, No Throat swelling, No Other Cardiovascular: No Chest Pain, No Palpitations, No Orthopnea, No Paroxysmal Noc. Dyspnea, No Edema, No Lt Headedness, No Other Respiratory: Cough; No Dry; Shortness of breath, SOB with excertion, Wheezing; No Hemoptysis; Pleuritic Pain, Sputum; No Other Gastrointestinal: No Nausea, No Vomiting, No Abdominal Pain, No Diarrhea, No Constipation, No Melena, No Hematochezia, No Other Genitourinary: No Dysuria, No Frequency, No Incontinence, No Hematuria, No Retention, No Other Musculoskeletal: No other, No neck pain, No shoulder pain, No arm pain, No back pain, No hand pain, No leg pain, No foot pain Skin: No Rash, No Lesions, No Jaundice, No Bruising, No Other Objective Vitals Vital Signs Date Time Temp Pulse Resp B/P (MAP) Pulse Ox O2 Delivery O2 Flow Rate FiO2 01/07/25 09:47 72 01/07/25 09:00 97.5 18 141/92 (108) 94 97.5 01/07/25 07:55 Oxymizer 6 N/A Intake/Output Intake and Output 01/07/25 07:00 Intake Total 2229 ml Balance 2229 ml Intake Oral 2179 ml IV Total 50 ml # Voids 9 # Bowel Movements 2 Medications Current Medications Medications Dose Ordered Sig/Cassia Route Start Time Stop Time Status Last Admin Dose Admin Allopurinol 100 mg BID PO 12/27/24 22:00 01/07/25 08:46 100 MG Duloxetine HCl 30 mg DAILY PO 12/28/24 10:00 01/07/25 08:46 30 MG Methocarbamol 750 mg BID PO 12/28/24 10:00 01/07/25 08:45 750 MG Pantoprazole Sodium 40 mg DAILY PO 12/28/24 10:00 01/07/25 08:46 40 MG Pregabalin 100 mg TID PO 12/28/24 06:00 01/07/25 05:40 100 MG Atorvastatin Calcium 20 mg HS PO 12/27/24 22:00 01/06/25 21:39 20 MG Carvedilol 6.25 mg BID PO 12/28/24 10:00 01/07/25 08:47 6.25 MG Ceftriaxone Sodium 50 ml @ 100 mls/hr DAILY@09 IV 12/28/24 09:00 01/07/25 08:45 100 MLS/HR Sodium Chloride 10 ml Q8HR IV 12/27/24 22:00 01/07/25 05:48 10 ML Ondansetron HCl 4 mg Q4HP PRN IV 12/27/24 16:45 Docusate Sodium 100 mg BIDPRN PRN PO 12/27/24 16:45 Acetaminophen 650 mg Q6HP PRN PO 12/27/24 16:45 12/28/24 01:50 650 MG Tamsulosin HCl 0.4 mg DAILY PO 12/28/24 10:00 01/07/25 08:46 0.4 MG Guaifenesin/ Dextromethorphan 15 ml Q8HR PRN PO 12/28/24 12:30 01/07/25 05:44 15 ML Methylprednisolone Sodium Succinate 40 mg Q8HR IV 12/30/24 22:00 01/07/25 05:45 40 MG Clonidine HCl 0.2 mg Q6HP PRN PO 12/30/24 16:45 01/06/25 12:25 0.2 MG Lisinopril 20 mg DAILY PO 01/01/25 10:00 01/07/25 08:46 20 MG Metoprolol Succinate 100 mg DAILY PO 01/01/25 10:00 01/07/25 08:46 100 MG Patient Own Medication 1 QWEEKLY INJ 12/31/24 16:30 12/31/24 16:16 1 Alprazolam 1 mg TIDP PO 01/02/25 14:00 Cancel Albuterol 2.5 mg Q4HR NEB 01/02/25 18:00 01/07/25 06:44 2.5 MG Acetylcysteine 200 mg Q8HR NEB 01/02/25 22:00 01/07/25 06:44 200 MG Azithromycin 500 mg DAILY PO 01/04/25 10:00 01/07/25 08:47 500 MG Ipratropium [place] 0.5 mg Q4HR NEB 01/05/25 14:00 01/07/25 06:44 0.5 MG Laboratory Results Laboratory Tests 12/28/24 05:59 Microbiology Microbiology Date/Time Source Procedure Growth Status 01/06/25 10:45 Blood Blood Culture - Preliminary NO GROWTH AFTER 24 HOURS OF INCUBATION. Resulted Labs and/or images reviewed: Labs reviewed by me, Image(s) reviewed by me Assessment/Plan Assessment/Plan Acute hypoxic respiratory failure, oxygen 6 L by Oxymizer Possible community-acquired pneumonia: Rocephin Azithromycin Solu-Medrol consult for pulmonology Dr. Diaz appreciated Congestive heart failure: Consult for Patient does not use oxygen at home Hypertension, Coreg Hyperlipidemia, : Lipitor Gout, BPH: Flomax Anxiety: Patient was placed on Xanax could not tolerate it, DC Xanax Depression: Cymbalta History of gastric bypass surgery On Ozempic for weight loss Flu test negative Magalie test negative D-dimer normal Morbid obesity weight 92 kg Time spent 55 minutes Condition guarded Patient is full code PCP Dr Zaragoza Still complains of shortness of breaths and not feeling well; Spoke with Dr. Diaz who is going to re-evaluate, CT chest without contrast ordered, changed albuterol and Atrovent med-nebs to q.4 hours scheduled. Patient is still on 6 L of oxygen by nasal cannula: CT chest shows persistent multifocal disease with right middle lobe collapse' Repeat flu test and COVID test neg Plan discussed with: Patient Date of Service: Jan 07, 2025 Billing Provider: JF ORTEGA MD Common Visit Codes: [id number] INP/OBS CARE(HIGH) JF ORTEGA MD Jan 07, 2025 11:09
[2025-01-07] MEDS: IOHEXOL 350 MG/ML 100ML IJ ONE (11:41)
[2025-01-07] MEDS: FUROSEMIDE 40 MG/4 ML VIAL IV ONE (13:02)
[2025-01-07] MEDS ORDERED: TEMAZEPAM 15 MG CAP PO PRN (13:15)
--- NOTE | 2025-01-07 21:35 | DVHPN2 ---
Progress Note - Dictate Date Seen: Jan 07, 2025 Medical Necessity Reason Pt with a Central, PICC or Fol: No Subjective Patient seen and examined at bedside. Remains on supplemental oxygen Overnight events reviewed. vital signs Vital Sign Date Time Temp Pulse Resp B/P (MAP) Pulse Ox O2 Delivery O2 Flow Rate FiO2 01/07/25 19:50 87 18 95 01/07/25 19:40 Oxymizer 8 N/A 01/07/25 17:00 97.7 126/88 (101) 97.7 Total Intake and Output 01/06/25 01/06/25 01/07/25 15:00 23:00 07:00 Intake Total 50 ml 1025 ml 1154 ml Balance 50 ml 1025 ml 1154 ml medications Current Medications Medications Dose Ordered Sig/Cassia Route Start Time Stop Time Status Last Admin Dose Admin Allopurinol 100 mg BID PO 12/27/24 22:00 01/07/25 08:46 100 MG Duloxetine HCl 30 mg DAILY PO 12/28/24 10:00 01/07/25 08:46 30 MG Methocarbamol 750 mg BID PO 12/28/24 10:00 01/07/25 08:45 750 MG Pantoprazole Sodium 40 mg DAILY PO 12/28/24 10:00 01/07/25 08:46 40 MG Pregabalin 100 mg TID PO 12/28/24 06:00 01/07/25 13:05 100 MG Atorvastatin Calcium 20 mg HS PO 12/27/24 22:00 01/06/25 21:39 20 MG Carvedilol 6.25 mg BID PO 12/28/24 10:00 01/07/25 08:47 6.25 MG Ceftriaxone Sodium 50 ml @ 100 mls/hr DAILY@09 IV 12/28/24 09:00 01/07/25 08:45 100 MLS/HR Sodium Chloride 10 ml Q8HR IV 12/27/24 22:00 01/07/25 13:05 10 ML Ondansetron HCl 4 mg Q4HP PRN IV 12/27/24 16:45 Docusate Sodium 100 mg BIDPRN PRN PO 12/27/24 16:45 Acetaminophen 650 mg Q6HP PRN PO 12/27/24 16:45 12/28/24 01:50 650 MG Tamsulosin HCl 0.4 mg DAILY PO 12/28/24 10:00 01/07/25 08:46 0.4 MG Guaifenesin/ Dextromethorphan 15 ml Q8HR PRN PO 12/28/24 12:30 01/07/25 20:12 15 ML Methylprednisolone Sodium Succinate 40 mg Q8HR IV 12/30/24 22:00 01/07/25 13:05 40 MG Clonidine HCl 0.2 mg Q6HP PRN PO 12/30/24 16:45 01/06/25 12:25 0.2 MG Lisinopril 20 mg DAILY PO 01/01/25 10:00 01/07/25 08:46 20 MG Metoprolol Succinate 100 mg DAILY PO 01/01/25 10:00 01/07/25 08:46 100 MG Patient Own Medication 1 QWEEKLY INJ 12/31/24 16:30 01/07/25 17:59 1 Alprazolam 1 mg TIDP PO 01/02/25 14:00 Cancel Albuterol 2.5 mg Q4HR NEB 01/02/25 18:00 01/07/25 19:43 2.5 MG Acetylcysteine 200 mg Q8HR NEB 01/02/25 22:00 01/07/25 13:58 200 MG Azithromycin 500 mg DAILY PO 01/04/25 10:00 01/07/25 08:47 500 MG Ipratropium [place] 0.5 mg Q4HR NEB 01/05/25 14:00 01/07/25 19:43 0.5 MG Melatonin 5 mg HS PO 01/07/25 22:00 objective Gen.: Patient lying in bed in no apparent distress. On supplemental oxygen. Head: Normocephalic, atraumatic. Eyes: EOMI/PERRLA. Ears: Normal hearing. Normal anatomy. Neck/trachea: Trachea midline, supple. Nose: Normal external anatomy. Mouth: Moist mucous membranes. Chest: Decreased air entry bilaterally. Wheezing, improved. No rhonchi. Cardiovascular: Positive S1, positive S2. Regular rate and rhythm. Abdomen: Positive bowel sounds in all 4 quadrants. Soft, non-tender, non- distended. : Deferred. Rectal: Deferred. Skin: Warm, dry. Intact. Extremities: 2+ radial pulses bilaterally. No lower extremity edema. Neuro: Awake, alert, oriented x3. No gross motor or sensory deficits. Cranial nerves II through XII intact. Gait not assessed. laboratory and microbiology Laboratory Tests 12/28/24 05:59 Test 12/28/24 05:59 Range/Units Serum Glucose 178 H 74-106 mg/dL Assessment/Plan Impression: Acute on chronic hypoxic respiratory failure Dependence on supplemental oxygen Atelectasis Pneumonitis Elevated D-dimer, PE ruled out Overweight, BMI 29.0 Events: Remains on supplemental oxygen, 6 LPM Oxymizer Taper O2 as tolerated O2 requirements remain elevated. Continue physical therapy CT chest showing persistent partial collapse of the right middle lobe. Unchanged multifocal airspace disease. Probable superimposed early/mild changes of pulmonary fibrosis. CTA showed no e/o pulmonary embolism. RML atelectasis. Small hiatal hernia. Continue bronchodilators Continue antibiotics IV steroids - taper as tolerated Antitussive PRN cough Incentive spirometry for atelectasis Received Lasix 20 mg IVP x 1 Obtain CXR in the AM to assess for interval changes. Protonix for GI prophylaxis DME for nebulizer and nebulizer supplies. Labs and imaging reviewed. Rest of plan as noted below. Plan: Supplemental oxygen Titrate to keep O2 sats above 92%. Continue bronchodilators. Continue antibiotics Continue steroids Antitussive PRN cough Incentive spirometry Monitor renal function. Monitor electrolytes. Supplement as necessary. Monitor ins and outs. DVT prophylaxis. Prognosis: Guarded given patient's multiple co-morbidities. Rest of plan per hospitalist and other consultants. Thank you, Dr. Franz, for allowing me to participate in this patient's care. Further recommendations will depend on the patient's clinical course. Please do not hesitate to contact me if you have any questions or concerns. This medical document was created using an electronic medical record system with [employer] dictation system. Although these documentations are being carefully reviewed, there may still be some phonetic and typographical changes. The errors are purely typographical, due to imperfection on the software program, and do not reflect any compromise in the patient's medical care. Dietary Evaluation Review Recommendations by RD: Dietary education by RD Comments: 1) Add 60g CCHO restriction to cardiac diet order 2) Collect HbA1c 3) Refer to RD/CDCES for weight management 4) Continue plan of care Expected Outcomes/Goals: 1) appetite and labs to improve 2) f/u in 5 days Plan discussed with: Patient, Other (PABLO Puri MD 9, 2025 21:35
[2025-01-07] MEDS: MELATONIN 5 MG TAB PO SCH (21:44)
[2025-01-08] VITALS (18 sets, daily range): BP systolic 114–133; BP diastolic 70–89; PULSE 74–97; RESP 14–23; TEMP 97.5–98.1; O2SAT 88–97
--- NOTE | 2025-01-08 06:30 | DVH ---
EXAM: XR Chest, 1 View CLINICAL INDICATION: SHORTNESS OF BREATH TECHNIQUE: Frontal view of the chest. COMPARISON: XY CHEST XRAY 1 VIEW on DOS: 12/28/24, XY CHEST PORTABLE on DOS: 12/27/24, CHEST XRAY 1 V IEW on DOS: 12/24/20 FINDINGS: LUNGS AND PLEURAL SPACES: Right basilar atelectasis or pneumonia. No pneumothorax. HEART: Unremarkable. No cardiomegaly. MEDIASTINUM: Unremarkable. Normal mediastinal contour. BONES/JOINTS: Unremarkable. No acute fracture. OTHER FINDINGS: . IMPRESSION: Right basilar atelectasis or pneumonia.
[2025-01-08 07:25] LABS: Basophils # (auto) 0 10 ^3/uL (0-0.2); Basophils % (auto) 0.1 % (0.0-2.0); Eosinophils # (auto) 0 10 ^3/uL (0-0.8); Hematocrit 41.6 % (41.0-53.0); Hemoglobin 14.4 g/dL (13.5-17.5); Lymphocytes # (auto) 0.7 10 ^3/uL (0.4-5.4); Lymphocytes % (auto) 3.2 % (10.0-50.0); Mean Corpuscular Hemoglobin 31.8 pg (28.0-32.0); Mean Corpuscular Hgb Conc. 34.5 g/dL (32.0-36.0); Mean Corpuscular Volume 92.1 fL (80.0-100.0); Monocytes # (auto) 0.8 10 ^3/uL (0-1.3); Monocytes % (auto) 3.6 % (0.0-12.0); Neutrophils # (auto) 20.1 10 ^3/uL (1.6-8.6); Neutrophils % (auto) 93.1 % (37.0-80.0); Platelet Count (auto) 173 10^3/uL (140-450); Red Blood Cells 4.52 10^6/uL (4.5-5.90); Red Cell Distribution Width 12.3 % (11.8-14.3); White Blood Cell 21.6 10^3/uL (4.4-10.8)
[2025-01-08 07:31] LABS: Albumin 3.4 g/dL (3.2-4.8); Alkaline Phosphatase 115 U/L (46-116); Anion Gap 8 (5-15); BUN/Creatinine Ratio 26.2 (10.0-20.0); Bilirubin, Total 0.4 mg/dL (0.2-1.0); Carbon Dioxide 28 mmol/L (20-31); Potassium 4.2 mmol/L (3.5-5.1)
[2025-01-08 07:35] LABS: Blood Urea Nitrogen 34 mg/dL (9-23); Chloride 97 mmol/L (98-107); Sodium 133 mmol/L (136-145)
[2025-01-08 07:36] LABS: Alanine Aminotransferase 199 U/L (7-40); Aspartate Aminotransferase 70 U/L (13-40); Total Protein 5.2 g/dL (5.7-8.2)
[2025-01-08 07:37] LABS: Glucose 473 mg/dL (74-106)
[2025-01-08] MEDS ORDERED: DEXTROSE (50%) 50ML SYRG IV PRN (08:15)
[2025-01-08] MEDS: ACCU-CHEK COMFORT CURVE STRIP VI SCH (10:33)
[2025-01-08] MEDS: InsuLIN REG 1unit/0.01ml Soln (100units/ml) SC SCH ×2 (10:34→21:51)
--- NOTE | 2025-01-08 11:24 | DVHPN2 ---
Reviewed: Care Plan, H&P, Labs, Medications, Previous Orders, Radiology Changes from previous H/P or p: No Changes Eyes: No Pain, No Vision change, No Conjunctivae inflammation, No Eyelid inflammation, No Other, No Redness ENT: No Ear pain, No Ear discharge, No Nose pain, No Nose discharge, No Nose congestion, No Mouth pain, No Mouth swelling, No Throat pain, No Throat swelling, No Other Cardiovascular: No Chest Pain, No Palpitations, No Orthopnea, No Paroxysmal Noc. Dyspnea, No Edema, No Lt Headedness, No Other Respiratory: Cough, Shortness of breath, SOB with excertion, Wheezing, P leuritic Pain, Sputum Gastrointestinal: No Nausea, No Vomiting, No Abdominal Pain, No Diarrhea, No Constipation, No Melena, No Hematochezia, No Other Genitourinary: No Dysuria, No Frequency, No Incontinence, No Hematuria, No Retention, No Other Musculoskeletal: No other, No neck pain, No shoulder pain, No arm pain, No back pain, No hand pain, No leg pain, No foot pain Skin: No Rash, No Lesions, No Jaundice, No Bruising, No Other Objective Vitals Vital Signs Date Time Temp Pulse Resp B/P (MAP) Pulse Ox O2 Delivery O2 Flow Rate FiO2 01/08/25 10:21 80 14 91 01/08/25 09:15 133/82 01/08/25 09:00 97.9 97.9 01/08/25 07:55 Oxymizer 6 N/A Intake/Output Intake and Output 01/08/25 07:00 Intake Total 1300 ml Balance 1300 ml Intake Oral 1250 ml IV Total 50 ml # Voids 3 Medications Current Medications Medications Dose Ordered Sig/Cassia Route Start Time Stop Time Status Last Admin Dose Admin Allopurinol 100 mg BID PO 12/27/24 22:00 01/08/25 09:16 100 MG Duloxetine HCl 30 mg DAILY PO 12/28/24 10:00 01/08/25 09:13 30 MG Methocarbamol 750 mg BID PO 12/28/24 10:00 01/08/25 09:13 750 MG Pantoprazole Sodium 40 mg DAILY PO 12/28/24 10:00 01/08/25 09:14 40 MG Pregabalin 100 mg TID PO 12/28/24 06:00 01/08/25 05:29 100 MG Atorvastatin Calcium 20 mg HS PO 12/27/24 22:00 01/07/25 21:39 20 MG Carvedilol 6.25 mg BID PO 12/28/24 10:00 01/08/25 09:15 6.25 MG Ceftriaxone Sodium 50 ml @ 100 mls/hr DAILY@09 IV 12/28/24 09:00 01/08/25 09:16 100 MLS/HR Sodium Chloride 10 ml Q8HR IV 12/27/24 22:00 01/08/25 05:30 10 ML Ondansetron HCl 4 mg Q4HP PRN IV 12/27/24 16:45 Docusate Sodium 100 mg BIDPRN PRN PO 12/27/24 16:45 Acetaminophen 650 mg Q6HP PRN PO 12/27/24 16:45 12/28/24 01:50 650 MG Tamsulosin HCl 0.4 mg DAILY PO 12/28/24 10:00 01/08/25 09:13 0.4 MG Guaifenesin/ Dextromethorphan 15 ml Q8HR PRN PO 12/28/24 12:30 01/07/25 20:12 15 ML Methylprednisolone Sodium Succinate 40 mg Q8HR IV 12/30/24 22:00 01/08/25 05:28 40 MG Clonidine HCl 0.2 mg Q6HP PRN PO 12/30/24 16:45 01/06/25 12:25 0.2 MG Lisinopril 20 mg DAILY PO 01/01/25 10:00 01/08/25 09:14 20 MG Metoprolol Succinate 100 mg DAILY PO 01/01/25 10:00 01/08/25 09:12 100 MG Patient Own Medication 1 QWEEKLY INJ 12/31/24 16:30 01/07/25 17:59 1 Alprazolam 1 mg TIDP PO 01/02/25 14:00 Cancel Albuterol 2.5 mg Q4HR NEB 01/02/25 18:00 01/08/25 10:14 2.5 MG Acetylcysteine 200 mg Q8HR NEB 01/02/25 22:00 01/08/25 06:29 200 MG Azithromycin 500 mg DAILY PO 01/04/25 10:00 01/08/25 09:10 500 MG Ipratropium [place] 0.5 mg Q4HR NEB 01/05/25 14:00 01/08/25 10:14 0.5 MG Melatonin 5 mg HS PO 01/07/25 22:00 01/07/25 21:44 5 MG Diagnostic Test (Pha) 1 strip ACHS 01/08/25 11:30 01/08/25 10:33 1 STRIP Insulin Human Regular AC SC 01/08/25 11:30 01/08/25 10:34 20 UNITS Insulin Human Regular HS SC 01/08/25 22:00 Dextrose 50 ml UD PRN IV 01/08/25 08:15 Laboratory Results Laboratory Tests 01/08/25 06:39 Chemistry Test 01/08/25 06:39 Albumin 3.4 g/dL (3.2-4.8) Calcium Level 9.0 mg/dL (8.7-10.4) Total Protein 5.2 g/dL (5.7-8.2) L LFT Test 01/08/25 06:39 Alanine Aminotransferase (ALT) 199 U/L (7-40) H Alkaline Phosphatase 115 U/L (46-116) Aspartate Amino Transferase (AST) 70 U/L (13-40) H Total Bilirubin 0.4 mg/dL (0.2-1.0) Microbiology Microbiology Date/Time Source Procedure Growth Status 01/06/25 10:45 Blood Blood Culture - Preliminary NO GROWTH AFTER 48 HOURS OF INCUBATION. Resulted Labs and/or images reviewed: Labs reviewed by me, Image(s) reviewed by me Assessment/Plan Assessment/Plan Acute hypoxic respiratory failure, oxygen 6 L by Oxymizer Possible community-acquired pneumonia: Rocephin Azithromycin Solu-Medrol consult for pulmonology Dr. Diaz appreciated Congestive heart failure: Consult for Patient does not use oxygen at home Hypertension, Coreg Hyperlipidemia, : Lipitor Gout, BPH: Flomax Anxiety: Patient was placed on Xanax could not tolerate it, DC Xanax Depression: Cymbalta History of gastric bypass surgery On Ozempic for weight loss Flu test negative Magalie test negative D-dimer normal Uncontrolled diabetes glucose 400s secondary to Solu-Medrol: Placed on aggressive sliding scale Morbid obesity weight 92 kg Time spent 55 minutes Condition guarded Patient is full code PCP Dr Zaragoza Still complains of shortness of breaths and not feeling well; Spoke with Dr. Diaz who is going to re-evaluate, CT chest without contrast ordered, changed albuterol and Atrovent med-nebs to q.4 hours scheduled. Patient is still on 6 L of oxygen by nasal cannula: CT chest shows persistent multifocal disease with right middle lobe collapse' Repeat flu test and COVID test neg Plan discussed with: Patient My Orders Orders - JF ORTEGA MD Procedure Category Date Status Time Melatonin (Melatonin) PHA 01/07/25 In Process 22:00 Glucose Blood PHA 01/08/25 In Process (Accu-Chek Comfort 11:30 Insulin R (Human) PHA 01/08/25 In Process (Insulin R) 11:30 Insulin R (Human) PHA 01/08/25 In Process (Insulin R) 22:00 Dextrose 50% Syringe PHA 01/08/25 In Process 08:15 Date of Service: Jan 08, 2025 Billing Provider: JF ORTEGA MD Common Visit Codes: [id number] INP/OBS CARE(HIGH) JF ORTEGA MD Jan 08, 2025 11:24
[2025-01-08] MEDS: FUROSEMIDE 20 MG/2 ML VIAL IV ONE (14:17)
--- NOTE | 2025-01-08 22:00 | DVHPN2 ---
Progress Note - Dictate Date Seen: Jan 08, 2025 Medical Necessity Reason Pt with a Central, PICC or Fol: No Subjective Patient seen and examined at bedside. Remains on supplemental oxygen Overnight events reviewed. vital signs Vital Sign Date Time Temp Pulse Resp B/P (MAP) Pulse Ox O2 Delivery O2 Flow Rate FiO2 01/08/25 21:46 90 120/81 01/08/25 21:00 98.1 18 95 98.1 01/08/25 20:00 Oxymizer 6 N/A Total Intake and Output 01/07/25 01/07/25 01/08/25 15:00 23:00 07:00 Intake Total 200 ml 500 ml 600 ml Balance 200 ml 500 ml 600 ml medications Current Medications Medications Dose Ordered Sig/Cassia Route Start Time Stop Time Status Last Admin Dose Admin Allopurinol 100 mg BID PO 12/27/24 22:00 01/08/25 21:41 100 MG Duloxetine HCl 30 mg DAILY PO 12/28/24 10:00 01/08/25 09:13 30 MG Methocarbamol 750 mg BID PO 12/28/24 10:00 01/08/25 21:45 750 MG Pantoprazole Sodium 40 mg DAILY PO 12/28/24 10:00 01/08/25 09:14 40 MG Pregabalin 100 mg TID PO 12/28/24 06:00 01/08/25 21:43 100 MG Atorvastatin Calcium 20 mg HS PO 12/27/24 22:00 01/08/25 21:42 20 MG Carvedilol 6.25 mg BID PO 12/28/24 10:00 01/08/25 21:46 6.25 MG Sodium Chloride 10 ml Q8HR IV 12/27/24 22:00 01/08/25 21:52 10 ML Ondansetron HCl 4 mg Q4HP PRN IV 12/27/24 16:45 Docusate Sodium 100 mg BIDPRN PRN PO 12/27/24 16:45 Acetaminophen 650 mg Q6HP PRN PO 12/27/24 16:45 12/28/24 01:50 650 MG Tamsulosin HCl 0.4 mg DAILY PO 12/28/24 10:00 01/08/25 09:13 0.4 MG Guaifenesin/ Dextromethorphan 15 ml Q8HR PRN PO 12/28/24 12:30 01/07/25 20:12 15 ML Methylprednisolone Sodium Succinate 40 mg Q8HR IV 12/30/24 22:00 01/08/25 21:46 40 MG Clonidine HCl 0.2 mg Q6HP PRN PO 12/30/24 16:45 01/06/25 12:25 0.2 MG Lisinopril 20 mg DAILY PO 01/01/25 10:00 01/08/25 09:14 20 MG Metoprolol Succinate 100 mg DAILY PO 01/01/25 10:00 01/08/25 09:12 100 MG Patient Own Medication 1 QWEEKLY INJ 12/31/24 16:30 01/07/25 17:59 1 Alprazolam 1 mg TIDP PO 01/02/25 14:00 Cancel Albuterol 2.5 mg Q4HR NEB 01/02/25 18:00 01/08/25 18:36 2.5 MG Acetylcysteine 200 mg Q8HR NEB 01/02/25 22:00 01/08/25 14:13 200 MG Azithromycin 500 mg DAILY PO 01/04/25 10:00 01/08/25 09:10 500 MG Ipratropium [place] 0.5 mg Q4HR NEB 01/05/25 14:00 01/08/25 18:36 0.5 MG Melatonin 5 mg HS PO 01/07/25 22:00 01/08/25 21:42 5 MG Diagnostic Test (Pha) 1 strip ACHS 01/08/25 11:30 01/08/25 21:52 1 STRIP Insulin Human Regular AC SC 01/08/25 11:30 01/08/25 16:36 20 UNITS Insulin Human Regular HS SC 01/08/25 22:00 01/08/25 21:51 8 UNITS Dextrose 50 ml UD PRN IV 01/08/25 08:15 objective Gen.: Patient lying in bed in no apparent distress. On supplemental oxygen. Head: Normocephalic, atraumatic. Eyes: EOMI/PERRLA. Ears: Normal hearing. Normal anatomy. Neck/trachea: Trachea midline, supple. Nose: Normal external anatomy. Mouth: Moist mucous membranes. Chest: Decreased air entry bilaterally. Wheezing, improved. No rhonchi. Cardiovascular: Positive S1, positive S2. Regular rate and rhythm. Abdomen: Positive bowel sounds in all 4 quadrants. Soft, non-tender, non- distended. : Deferred. Rectal: Deferred. Skin: Warm, dry. Intact. Extremities: 2+ radial pulses bilaterally. No lower extremity edema. Neuro: Awake, alert, oriented x3. No gross motor or sensory deficits. Cranial nerves II through XII intact. Gait not assessed. laboratory and microbiology Laboratory Tests 01/08/25 06:39 Test 01/08/25 06:39 Range/Units Serum Glucose 473 *H 74-106 mg/dL Assessment/Plan Impression: Acute on chronic hypoxic respiratory failure Dependence on supplemental oxygen Atelectasis Pneumonitis Elevated D-dimer, PE ruled out Overweight, BMI 29.0 Events: Remains on supplemental oxygen, 8 LPM Oxymizer Taper O2 as tolerated O2 requirements remain elevated. Continue physical therapy Chest x-ray reviewed, demonstrates right basilar atelectasis or pneumonia. Continue bronchodilators Continue antibiotics IV steroids - taper as tolerated Antitussive PRN cough Incentive spirometry for atelectasis Give Lasix 20 mg IVP x 1 Protonix for GI prophylaxis DME for nebulizer and nebulizer supplies. Labs and imaging reviewed. Rest of plan as noted below. Plan: Supplemental oxygen Titrate to keep O2 sats above 92%. Continue bronchodilators. Continue antibiotics Continue steroids Antitussive PRN cough Incentive spirometry Monitor renal function. Monitor electrolytes. Supplement as necessary. Monitor ins and outs. DVT prophylaxis. Prognosis: Guarded given patient's multiple co-morbidities. Rest of plan per hospitalist and other consultants. Thank you, Dr. Franz, for allowing me to participate in this patient's care. Further recommendations will depend on the patient's clinical course. Please do not hesitate to contact me if you have any questions or concerns. This medical document was created using an electronic medical record system with [employer] dictation system. Although these documentations are being carefully reviewed, there may still be some phonetic and typographical changes. The errors are purely typographical, due to imperfection on the software program, and do not reflect any compromise in the patient's medical care. Dietary Evaluation Review Recommendations by RD: Dietary education by RD Comments: 1) Add 60g CCHO restriction to cardiac diet order 2) Collect HbA1c 3) Refer to RD/CDCES for weight management 4) Continue plan of care Expected Outcomes/Goals: 1) appetite and labs to improve 2) f/u in 5 days Plan discussed with: Patient, Other (RN Rosie) PABLO RODRIGUEZ MD Jan 08, 2025 22:00
[2025-01-09] VITALS (20 sets, daily range): BP systolic 111–130; BP diastolic 78–88; PULSE 71–98; RESP 14–20; TEMP 98–98.7; O2SAT 90–99
--- NOTE | 2025-01-09 12:16 | DVHPN2 ---
Reviewed: Care Plan, H&P, Labs, Medications, Previous Orders, Radiology Changes from previous H/P or p: No Changes Eyes: No Pain, No Vision change, No Conjunctivae inflammation, No Eyelid inflammation, No Other, No Redness ENT: No Ear pain, No Ear discharge, No Nose pain, No Nose discharge, No Nose congestion, No Mouth pain, No Mouth swelling, No Throat pain, No Throat swelling, No Other Cardiovascular: No Chest Pain, No Palpitations, No Orthopnea, No Paroxysmal Noc. Dyspnea, No Edema, No Lt Headedness, No Other Respiratory: Cough, Shortness of breath, SOB with excertion, Wheezing, P leuritic Pain, Sputum Gastrointestinal: No Nausea, No Vomiting, No Abdominal Pain, No Diarrhea, No Constipation, No Melena, No Hematochezia, No Other Genitourinary: No Dysuria, No Frequency, No Incontinence, No Hematuria, No Retention, No Other Musculoskeletal: No other, No neck pain, No shoulder pain, No arm pain, No back pain, No hand pain, No leg pain, No foot pain Skin: No Rash, No Lesions, No Jaundice, No Bruising, No Other Objective Vitals Vital Signs Date Time Temp Pulse Resp B/P (MAP) Pulse Ox O2 Delivery O2 Flow Rate FiO2 01/09/25 10:43 120/82 01/09/25 10:43 76 01/09/25 09:56 98.0 17 93 98.0 01/09/25 09:31 Oxymizer 8 N/A Intake/Output Intake and Output 01/09/25 07:00 Intake Total 1700 ml Balance 1700 ml Intake Oral 1650 ml IV Total 50 ml # Voids 6 # Bowel Movements 1 Medications Current Medications Medications Dose Ordered Sig/Cassia Route Start Time Stop Time Status Last Admin Dose Admin Allopurinol 100 mg BID PO 12/27/24 22:00 01/09/25 10:40 100 MG Duloxetine HCl 30 mg DAILY PO 12/28/24 10:00 01/09/25 10:41 30 MG Methocarbamol 750 mg BID PO 12/28/24 10:00 01/08/25 21:45 750 MG Pantoprazole Sodium 40 mg DAILY PO 12/28/24 10:00 01/09/25 10:37 40 MG Pregabalin 100 mg TID PO 12/28/24 06:00 01/09/25 06:10 100 MG Atorvastatin Calcium 20 mg HS PO 12/27/24 22:00 01/08/25 21:42 20 MG Carvedilol 6.25 mg BID PO 12/28/24 10:00 01/09/25 10:43 6.25 MG Sodium Chloride 10 ml Q8HR IV 12/27/24 22:00 01/09/25 06:00 10 ML Ondansetron HCl 4 mg Q4HP PRN IV 12/27/24 16:45 Docusate Sodium 100 mg BIDPRN PRN PO 12/27/24 16:45 Acetaminophen 650 mg Q6HP PRN PO 12/27/24 16:45 12/28/24 01:50 650 MG Tamsulosin HCl 0.4 mg DAILY PO 12/28/24 10:00 01/09/25 10:33 0.4 MG Guaifenesin/ Dextromethorphan 15 ml Q8HR PRN PO 12/28/24 12:30 01/07/25 20:12 15 ML Methylprednisolone Sodium Succinate 40 mg Q8HR IV 12/30/24 22:00 01/09/25 06:10 40 MG Clonidine HCl 0.2 mg Q6HP PRN PO 12/30/24 16:45 01/06/25 12:25 0.2 MG Lisinopril 20 mg DAILY PO 01/01/25 10:00 01/09/25 10:43 20 MG Metoprolol Succinate 100 mg DAILY PO 01/01/25 10:00 01/09/25 10:42 100 MG Patient Own Medication 1 QWEEKLY INJ 12/31/24 16:30 01/07/25 17:59 1 Alprazolam 1 mg TIDP PO 01/02/25 14:00 Cancel Albuterol 2.5 mg Q4HR NEB 01/02/25 18:00 01/09/25 09:25 2.5 MG Acetylcysteine 200 mg Q8HR NEB 01/02/25 22:00 01/09/25 06:09 200 MG Azithromycin 500 mg DAILY PO 01/04/25 10:00 01/09/25 10:40 500 MG Ipratropium [place] 0.5 mg Q4HR NEB 01/05/25 14:00 01/09/25 09:25 0.5 MG Melatonin 5 mg HS PO 01/07/25 22:00 01/08/25 21:42 5 MG Diagnostic Test (Pha) 1 strip ACHS 01/08/25 11:30 01/09/25 11:25 1 STRIP Insulin Human Regular AC SC 01/08/25 11:30 01/09/25 06:16 16 UNITS Insulin Human Regular HS SC 01/08/25 22:00 01/08/25 21:51 8 UNITS Dextrose 50 ml UD PRN IV 01/08/25 08:15 Laboratory Results Laboratory Tests 01/08/25 06:39 Microbiology Microbiology Date/Time Source Procedure Growth Status 01/06/25 10:45 Blood Blood Culture - Preliminary NO GROWTH AFTER 72 HOURS OF INCUBATION. Resulted Labs and/or images reviewed: Labs reviewed by me, Image(s) reviewed by me Assessment/Plan Assessment/Plan Acute hypoxic respiratory failure, oxygen 6 L by Oxymizer Possible community-acquired pneumonia: continue azithromycin add Zosyn Solu- Medrol consult for pulmonology Dr. Diaz appreciated Congestive heart failure: Consult for Patient does not use oxygen at home Hypertension, Coreg Hyperlipidemia, : Lipitor Gout, BPH: Flomax Anxiety: Patient was placed on Xanax could not tolerate it, DC Xanax Depression: Cymbalta History of gastric bypass surgery On Ozempic for weight loss Flu test negative Magalie test negative D-dimer normal Uncontrolled diabetes glucose 400s secondary to Solu-Medrol: Placed on aggressive sliding scale Morbid obesity weight 92 kg Time spent 55 minutes Condition guarded Patient is full code PCP Dr Zaragoza Daughter Carley [phone] at bedside and I discussed the diagnosis management and poor prognosis Still complains of shortness of breaths and not feeling well; Spoke with Dr. Diaz who is going to re-evaluate, CT chest without contrast ordered, changed albuterol and Atrovent med-nebs to q.4 hours scheduled. Patient is still on 6 L of oxygen by nasal cannula: CT chest shows persistent multifocal disease with right middle lobe collapse' Repeat flu test and COVID test neg Plan discussed with: Patient My Orders Orders - JF ORTEGA MD Procedure Category Date Status Time Piperacillin-Tazob PHA 01/09/25 Logged 3.375gm (Zosyn 3.375g 14:00 * Calibration Specialist CONS 01/09/25 Verified Consult Date of Service: Jan 09, 2025 Billing Provider: JF ORTEGA MD Common Visit Codes: [id number] CARE 30-74 MIN JF ORTEGA MD Jan 09, 2025 12:16
[2025-01-09] MEDS: PIPERACILLIN-TAZOB 3.375GM 100 ML IV SCH (14:57)
--- NOTE | 2025-01-09 20:09 | DVHPN2 ---
Progress Note - Dictate Date Seen: Jan 09, 2025 Medical Necessity Reason Pt with a Central, PICC or Fol: No Subjective Patient seen and examined at bedside. Remains on supplemental oxygen Overnight events reviewed. vital signs Vital Sign Date Time Temp Pulse Resp B/P (MAP) Pulse Ox O2 Delivery O2 Flow Rate FiO2 01/09/25 19:43 98 20 93 01/09/25 19:35 Oxymizer 6 N/A 01/09/25 17:35 98.4 114/80 (91) 98.4 Total Intake and Output 01/08/25 01/08/25 01/09/25 15:00 23:00 07:00 Intake Total 50 ml 1250 ml 400 ml Balance 50 ml 1250 ml 400 ml medications Current Medications Medications Dose Ordered Sig/Cassia Route Start Time Stop Time Status Last Admin Dose Admin Allopurinol 100 mg BID PO 12/27/24 22:00 01/09/25 10:40 100 MG Duloxetine HCl 30 mg DAILY PO 12/28/24 10:00 01/09/25 10:41 30 MG Methocarbamol 750 mg BID PO 12/28/24 10:00 01/08/25 21:45 750 MG Pantoprazole Sodium 40 mg DAILY PO 12/28/24 10:00 01/09/25 10:37 40 MG Pregabalin 100 mg TID PO 12/28/24 06:00 01/09/25 15:02 100 MG Atorvastatin Calcium 20 mg HS PO 12/27/24 22:00 01/08/25 21:42 20 MG Carvedilol 6.25 mg BID PO 12/28/24 10:00 01/09/25 10:43 6.25 MG Sodium Chloride 10 ml Q8HR IV 12/27/24 22:00 01/09/25 14:57 10 ML Ondansetron HCl 4 mg Q4HP PRN IV 12/27/24 16:45 Docusate Sodium 100 mg BIDPRN PRN PO 12/27/24 16:45 Acetaminophen 650 mg Q6HP PRN PO 12/27/24 16:45 12/28/24 01:50 650 MG Tamsulosin HCl 0.4 mg DAILY PO 12/28/24 10:00 01/09/25 10:33 0.4 MG Guaifenesin/ Dextromethorphan 15 ml Q8HR PRN PO 12/28/24 12:30 01/07/25 20:12 15 ML Methylprednisolone Sodium Succinate 40 mg Q8HR IV 12/30/24 22:00 01/09/25 14:57 40 MG Clonidine HCl 0.2 mg Q6HP PRN PO 12/30/24 16:45 01/06/25 12:25 0.2 MG Lisinopril 20 mg DAILY PO 01/01/25 10:00 01/09/25 10:43 20 MG Metoprolol Succinate 100 mg DAILY PO 01/01/25 10:00 01/09/25 10:42 100 MG Patient Own Medication 1 QWEEKLY INJ 12/31/24 16:30 01/07/25 17:59 1 Alprazolam 1 mg TIDP PO 01/02/25 14:00 Cancel Albuterol 2.5 mg Q4HR NEB 01/02/25 18:00 01/09/25 19:35 2.5 MG Acetylcysteine 200 mg Q8HR NEB 01/02/25 22:00 01/09/25 14:47 200 MG Azithromycin 500 mg DAILY PO 01/04/25 10:00 01/09/25 10:40 500 MG Ipratropium [place] 0.5 mg Q4HR NEB 01/05/25 14:00 01/09/25 19:35 0.5 MG Melatonin 5 mg HS PO 01/07/25 22:00 01/08/25 21:42 5 MG Diagnostic Test (Pha) 1 strip ACHS 01/08/25 11:30 01/09/25 17:12 1 STRIP Insulin Human Regular AC SC 01/08/25 11:30 01/09/25 17:23 12 UNITS Insulin Human Regular HS SC 01/08/25 22:00 01/08/25 21:51 8 UNITS Dextrose 50 ml UD PRN IV 01/08/25 08:15 Piperacillin Sod/ Tazobactam Sod 100 ml @ 25 mls/hr Q8HR IV 01/09/25 14:00 01/09/25 14:57 25 MLS/HR Sodium Chloride 1,000 ml @ 75 mls/hr [id number] IV 01/10/25 00:00 objective Gen.: Patient lying in bed in no apparent distress. On supplemental oxygen. Head: Normocephalic, atraumatic. Eyes: EOMI/PERRLA. Ears: Normal hearing. Normal anatomy. Neck/trachea: Trachea midline, supple. Nose: Normal external anatomy. Mouth: Moist mucous membranes. Chest: Decreased air entry bilaterally. Wheezing, improved. No rhonchi. Cardiovascular: Positive S1, positive S2. Regular rate and rhythm. Abdomen: Positive bowel sounds in all 4 quadrants. Soft, non-tender, non- distended. : Deferred. Rectal: Deferred. Skin: Warm, dry. Intact. Extremities: 2+ radial pulses bilaterally. No lower extremity edema. Neuro: Awake, alert, oriented x3. No gross motor or sensory deficits. Cranial nerves II through XII intact. Gait not assessed. laboratory and microbiology Laboratory Tests 01/08/25 06:39 Test 01/08/25 06:39 Range/Units Serum Glucose 473 *H 74-106 mg/dL Assessment/Plan Impression: Acute on chronic hypoxic respiratory failure Dependence on supplemental oxygen Atelectasis Pneumonitis Elevated D-dimer, PE ruled out Overweight, BMI 29.0 Events: Remains on supplemental oxygen, 8 LPM Oxymizer Taper O2 as tolerated O2 requirements remain elevated. CT chest reviewed, demonstrates right middle lobe atelectasis. Plan for bronchoscopy w/ BAL, possible brushings and possible biopsy. Patient to be NPO at midnight IV fluids with NS at 70 ml/hr. Continue bronchodilators Continue antibiotics IV steroids - taper as tolerated Antitussive PRN cough Incentive spirometry for atelectasis Diurese PRN Monitor renal function Protonix for GI prophylaxis Continue physical therapy DME for nebulizer and nebulizer supplies. Labs and imaging reviewed. Rest of plan as noted below. Plan: Supplemental oxygen Titrate to keep O2 sats above 92%. Continue bronchodilators. Continue antibiotics Continue steroids Antitussive PRN cough Incentive spirometry Monitor renal function. Monitor electrolytes. Supplement as necessary. Monitor ins and outs. DVT prophylaxis. Prognosis: Guarded given patient's multiple co-morbidities. Rest of plan per hospitalist and other consultants. Thank you, Dr. Franz, for allowing me to participate in this patient's care. Further recommendations will depend on the patient's clinical course. Please do not hesitate to contact me if you have any questions or concerns. This medical document was created using an electronic medical record system with [employer] dictation system. Although these documentations are being carefully reviewed, there may still be some phonetic and typographical changes. The errors are purely typographical, due to imperfection on the software program, and do not reflect any compromise in the patient's medical care. Dietary Evaluation Review Recommendations by RD: Dietary education by RD Comments: 1) Add 60g CCHO restriction to cardiac diet order 2) Collect HbA1c 3) Refer to RD/CDCES for weight management 4) Continue plan of care Expected Outcomes/Goals: 1) appetite and labs to improve 2) f/u in 5 days Plan discussed with: Patient, Other (MILLA Clark) PABLO RODRIGUEZ MD Jan 09, 2025 20:08
[2025-01-10] VITALS (19 sets, daily range): BP systolic 93–142; BP diastolic 64–99; PULSE 71–107; RESP 16–20; TEMP 97.4–98.3; O2SAT 91–98
[2025-01-10] MEDS: SODIUM CHLORIDE 0.9% 1,000 ML IV SCH (04:53)
[2025-01-10] MEDS ORDERED: LIDOCAINE 2% JELLY 11ml (GLYDO) ONE (07:13)
[2025-01-10] MEDS ORDERED: EPINEPHrine HCL 1 MG/1 ML AMP ONE (07:13)
[2025-01-10] MEDS ORDERED: LIDOCAINE 2%HCL (LOCAL ANESTH.) INJ 20ML MDV ONE (07:13)
[2025-01-10] MEDS ORDERED: NALOXONE HCL 0.4 MG/ML VIAL ONE (07:15)
[2025-01-10] MEDS ORDERED: FLUMAZENIL 0.1 MG/ML INJ 10ML MDV IV ONE (07:15)
[2025-01-10] MEDS ORDERED: SODIUM CHLORIDE LOCK 10 ML ONE (07:15)
[2025-01-10] MEDS ORDERED: SIMETHICONE 40 MG/0.6 ML ORAL DROP ONE (08:02)
[2025-01-10 09:19] LABS: INR 1.03 (0.9-1.15); Partial Thromboplastin Time 22.5 SEC (24.5-34.5); Prothrombin Time 10.9 sec (9.3-11.8)
[2025-01-10] MEDS: MIDAZOLAM HCL 5 MG/ML-1ML VIAL ONE (09:43)
[2025-01-10] MEDS: GLYCOPYRROLATE 0.2 MG/ML 1ML VIAL ONE (09:43)
[2025-01-10] MEDS: diphenhdrAMINE HCL 50 MG/1 ML VL ONE (09:43)
[2025-01-10] MEDS: fentaNYL CITRATE 100 MCG/2 ML VL ONE (09:43)
--- NOTE | 2025-01-10 10:20 | DVHNC2 ---
Procedure - Bronchoscopy procedure note: Indications: Right middle lobe atelectasis, Possible mucous plugging. Collapsed lung on CT chest Medicines: Versed 2 mg, fentanyl 25 mcg, glycopyrrolate 0.2 mg, Benadryl 50 mg Complications: None Procedure: Patient medications and allergies reviewed. The risks and benefits of the procedure and the sedation options and risk were discussed with the patient and family at bedside. All questions were answered and informed consent was obtained. Patient identification and proposed procedure were verified prior to the procedure by the physician, and a nurse, and the respiratory therapist in ICU room. The heart rate, respiratory rate, oxygen saturations, blood pressure, adequacy of pulmonary ventilation, and response to care were monitored throughout the procedure. The physical status of the patient was reassessed after the procedure. After obtaining informed consent, the bronchoscope was introduced through the endotracheal tube and advanced into the trachea bronchial tree of both lungs. The procedure was accomplished without difficulty. The patient tolerated the procedure well. Findings: The trachea is in normal caliber. The denys is sharp. The tracheobronchial tree of the right lung was examined to at least the first subsegmental level. The bronchial mucosa and anatomy in the right lung are normal. There are no endobronchial lesions. There was copious whitish secretions from right main stem bronchus onward throughout R4-R10. Viscous land mucous plug from RML both medial and lateral segment. 50 mL of saline requirement to remove mucous plug. Right middle lobe (RML) Bronchoalveolar lavage (BAL) obtained. RML BAL sent for gram stain and culture, viral culture, fungal culture, and AFB smear and culture. RML brushings and biopsy were also obtained. Mucosal hemorrhage post biopsy. Resolved with 20 mL of cold saline. The left upper lobe, lingula, and left lower lobe were examined to at least the first subsegmental level. Bronchial mucosa and anatomy in the left upper lobe and lingula are normal. There were no endobronchial lesions. There was copious whitish secretions from left main stem bronchus onward throughout L4-L10. Mucous plugging removed from L4-L10. There was no active bleeding at the completion of the procedure. Estimated blood loss: Less than 5 mL. Impression: Right middle lobe atelectasis due to mucous plugging Mucous plugging from L4-L10 and R4-R10 RML BAL performed Right middle lobe brushings and biopsy Recommendation: Follow-up RML BAL results and right middle lobe brushings and biopsy results. Procedure codes: 04273, bronchoscopy, rigid and flexible, including fluoroscopic guidance, one performed; with bronchial endobronchial broncho-alveolar lavage, single or multiple sites PABLO RODRIGUEZ MD Jan 10, 2025 10:20
--- NOTE | 2025-01-10 10:22 | DVHNC2 ---
Procedure - I administered moderate sedation throughout the 26 minutes of the procedure. An independent observer administered medications at my direction and monitored the patient's level of consciousness and physiological status throughout the procedure. CPT 35201 for the first 15 minutes. CPT 23411 for each additional 15 minutes of conscious sedation. CONSCIOUS SEDATION PROCEDURE NOTE: Procedural Sedation Performed by: Dr Diaz Indications: Bronchoscopy to evaluate and rule out endobronchial lesion due to right middle lobe collapse Cost Protocol: a time out was performed and the correct patient and site were verified Consent: The risks and benefits of monitored anesthesia care, including the risk of aspiration, deep sedation requiring airway management including possible intubation, nausea/vomiting and the risks of not performing the procedure, including severe pain and inability to complete the procedure, were all discussed with the patient. The alternatives of performing the procedure, including local anesthesia and IV analgesia, also discussed. The patient has a ride home available. ASA Class: II-mild systemic disease Mallampati Score: 2 Pre-anesthesia evaluation, including history, exam, and informed consent is documented in the note above. Monitoring: Continuous monitoring of heart rate, respiratory rate, pulse oximetry. Supplemental oxygen prior to and during procedure via nasal cannula. Resuscitation equipment available at the bedside during sedation. Intra-service start time: 0943 am Intra-service stop time: 1009 am The patient received Versed 2 mg IV push, fentanyl 25 mcg IV push, glycopyrrolate 0.2 mg IV push, and Benadryl 50 mg IV push and dosages were recorded on the sedation form. The patient was recovered from the sedation without complication or incident. Patient returned to pre-sedation level of awareness. The monitoring was discontinued at this time. Post-anesthesia evaluation: Respiratory function, cardiovascular function, temperature, and mental status [did/did not] return to pre-anesthetic state. Pain was controlled. The patient did tolerate p.o. PABLO DIAZ MD Jan 10, 2025 10:22
[2025-01-10] MEDS ORDERED: DEXTROSE (50%) 50ML SYRG IV PRN (11:45)
[2025-01-10] MEDS ORDERED: VANCOMYCIN PER PHARMACY 0 MG IV SCH (11:45)
--- NOTE | 2025-01-10 11:56 | DVHPN2 ---
Progress Note Date Seen: Jan 10, 2025 Medical Necessity Reason Pt with a Central, PICC or Fol: No Subjective Patient reports: No new complaints Review of Systems: HEENT:Normal, CVS:Normal, RESPIRATORY:Normal, GI:Normal, :Normal, MSK:Normal, NEURO:Normal Objective vital signs Vital Sign Date Time Temp Pulse Resp B/P (MAP) Pulse Ox O2 Delivery O2 Flow Rate FiO2 01/10/25 11:20 81 13 123/90 (101) 96 01/10/25 10:20 Mask 6.0 01/10/25 10:20 98.3 98.3 01/10/25 10:20 93 Total Intake and Output 01/09/25 01/09/25 01/10/25 15:00 23:00 07:00 Intake Total 330 ml 800 ml Balance 330 ml 800 ml medications Current Medications Medications Dose Ordered Sig/Cassia Route Start Time Stop Time Status Last Admin Dose Admin Allopurinol 100 mg BID PO 12/27/24 22:00 01/09/25 23:16 100 MG Duloxetine HCl 30 mg DAILY PO 12/28/24 10:00 01/09/25 10:41 30 MG Methocarbamol 750 mg BID PO 12/28/24 10:00 01/09/25 23:15 750 MG Pantoprazole Sodium 40 mg DAILY PO 12/28/24 10:00 01/09/25 10:37 40 MG Pregabalin 100 mg TID PO 12/28/24 06:00 01/09/25 23:13 100 MG Atorvastatin Calcium 20 mg HS PO 12/27/24 22:00 01/09/25 23:14 20 MG Carvedilol 6.25 mg BID PO 12/28/24 10:00 01/09/25 23:34 6.25 MG Sodium Chloride 10 ml Q8HR IV 12/27/24 22:00 01/10/25 06:06 10 ML Ondansetron HCl 4 mg Q4HP PRN IV 12/27/24 16:45 Docusate Sodium 100 mg BIDPRN PRN PO 12/27/24 16:45 Acetaminophen 650 mg Q6HP PRN PO 12/27/24 16:45 12/28/24 01:50 650 MG Tamsulosin HCl 0.4 mg DAILY PO 12/28/24 10:00 01/09/25 10:33 0.4 MG Guaifenesin/ Dextromethorphan 15 ml Q8HR PRN PO 12/28/24 12:30 01/07/25 20:12 15 ML Methylprednisolone Sodium Succinate 40 mg Q8HR IV 12/30/24 22:00 01/10/25 06:05 40 MG Clonidine HCl 0.2 mg Q6HP PRN PO 12/30/24 16:45 01/06/25 12:25 0.2 MG Lisinopril 20 mg DAILY PO 01/01/25 10:00 01/09/25 10:43 20 MG Metoprolol Succinate 100 mg DAILY PO 01/01/25 10:00 01/09/25 10:42 100 MG Patient Own Medication 1 QWEEKLY INJ 12/31/24 16:30 01/07/25 17:59 1 Alprazolam 1 mg TIDP PO 01/02/25 14:00 Cancel Albuterol 2.5 mg Q4HR NEB 01/02/25 18:00 01/10/25 07:43 2.5 MG Acetylcysteine 200 mg Q8HR NEB 01/02/25 22:00 01/10/25 07:43 200 MG Azithromycin 500 mg DAILY PO 01/04/25 10:00 01/09/25 10:40 500 MG Ipratropium [place] 0.5 mg Q4HR NEB 01/05/25 14:00 01/10/25 07:43 0.5 MG Melatonin 5 mg HS PO 01/07/25 22:00 01/09/25 23:14 5 MG Diagnostic Test (Pha) 1 strip ACHS 01/08/25 11:30 01/10/25 06:05 1 STRIP Insulin Human Regular AC SC 01/08/25 11:30 01/10/25 06:26 12 UNITS Insulin Human Regular HS SC 01/08/25 22:00 01/09/25 23:30 6 UNITS Dextrose 50 ml UD PRN IV 01/08/25 08:15 Piperacillin Sod/ Tazobactam Sod 100 ml @ 25 mls/hr Q8HR IV 01/09/25 14:00 01/10/25 06:32 25 MLS/HR Sodium Chloride 1,000 ml @ 75 mls/hr [id number] IV 01/10/25 00:00 01/10/25 04:53 75 MLS/HR Examination: GENERAL:Normal, HEENT:Normal, NECK:Normal, LUNGS:Normal, LUNGS:Abnormal (on oxygen, rales), CVS:Normal, ABDOMEN:Normal, MSK:Normal, SKIN:Normal, NEURO:Normal, :Normal laboratory and microbiology Laboratory Tests 01/08/25 06:39 Test 01/08/25 06:39 Range/Units Serum Glucose 473 *H 74-106 mg/dL Microbiology Date/Time Source Procedure Growth Status 01/06/25 10:45 Blood Blood Culture - Preliminary NO GROWTH AFTER 72 HOURS OF INCUBATION. Resulted Problem List/Assessment/Plan Problem List/Assessment/Plan #1 acute resp failure: cont oxygen #2 pneumonia/right middle lobe- gram positive/neg: vanc, zosyn #3 tobacco abuse: advised to quit- time spent 11 mins #4 likely copd with exacerbation: prednisone #5 s/p gastric bypass #6 hyperglycemia: ssi' #7 htn #8 gout advance care planning-full code- time spent 19mins Plan discussed with: Patient Dietary Evaluation Review Recommendations by RD: Dietary education by RD Comments: 1) Add 60g CCHO restriction to cardiac diet order 2) Collect HbA1c 3) Refer to RD/CDCES for weight management 4) Continue plan of care Expected Outcomes/Goals: 1) appetite and labs to improve 2) f/u in 5 days Date of Service: Jan 10, 2025 Billing Provider: GREY STRANGE MD Common Visit Codes: [id number] INP/OBS CARE(HIGH) Secondary Visit Codes: [id number] CHNG SMOKING >10MIN, [id number] CARE PLAN 30 MINUTES GREY STRANGE MD Jan 10, 2025 11:56
[2025-01-10] MEDS: ACCU-CHEK COMFORT CURVE STRIP VI SCH (12:00)
--- NOTE | 2025-01-10 12:05 | DVH ---
INDICATION: s/p bronchoscopy TECHNIQUE: Frontal view of the chest. COMPARISON: XY CHEST XRAY 1 VIEW on DOS: 01/08/25, XY CHEST XRAY 1 VIEW on DOS: 12/28/24, XY CHEST PORT ABLE on DOS: 12/27/24, CHEST XRAY 1 VIEW on DOS: 12/24/20 FINDINGS: . The heart and mediastinal contours are grossly unremarkable. There is no evidence of pleural disea se. Right lower lobe opacity. The bony structures of the chest are intact without fracture. IMPRESSION: 1. Right lower lobe opacity. No pneumothorax.
[2025-01-10] MEDS: InsuLIN REG 1unit/0.01ml Soln (100units/ml) SC SCH (12:33)
[2025-01-10] MEDS: PANTOPRAZOLE 40 MG TAB PO ONE (12:56)
[2025-01-10] MEDS: FUROSEMIDE 20 MG/2 ML VIAL IV ONE (13:10)
[2025-01-10] MEDS: VANCOMYCIN 1GM/250ML KIT 250 ML IV SCH (14:41)
--- NOTE | 2025-01-10 21:06 | DVHPN2 ---
Progress Note - Dictate Date Seen: Jan 10, 2025 Medical Necessity Reason Pt with a Central, PICC or Fol: No Subjective Patient seen and examined at bedside. Remains on supplemental oxygen Overnight events reviewed. vital signs Vital Sign Date Time Temp Pulse Resp B/P (MAP) Pulse Ox O2 Delivery O2 Flow Rate FiO2 01/10/25 20:04 101 16 98 01/10/25 19:58 Oxymizer 6.0 01/10/25 19:58 N/A 01/10/25 17:04 98.3 136/89 (105) 98.3 Total Intake and Output 01/09/25 01/09/25 01/10/25 15:00 23:00 07:00 Intake Total 330 ml 800 ml Balance 330 ml 800 ml medications Current Medications Medications Dose Ordered Sig/Cassia Route Start Time Stop Time Status Last Admin Dose Admin Allopurinol 100 mg BID PO 12/27/24 22:00 01/10/25 12:55 100 MG Duloxetine HCl 30 mg DAILY PO 12/28/24 10:00 01/10/25 12:55 30 MG Methocarbamol 750 mg BID PO 12/28/24 10:00 01/10/25 12:55 750 MG Pregabalin 100 mg TID PO 12/28/24 06:00 01/10/25 14:39 100 MG Atorvastatin Calcium 20 mg HS PO 12/27/24 22:00 01/09/25 23:14 20 MG Sodium Chloride 10 ml Q8HR IV 12/27/24 22:00 01/10/25 14:40 10 ML Ondansetron HCl 4 mg Q4HP PRN IV 12/27/24 16:45 Docusate Sodium 100 mg BIDPRN PRN PO 12/27/24 16:45 Acetaminophen 650 mg Q6HP PRN PO 12/27/24 16:45 12/28/24 01:50 650 MG Tamsulosin HCl 0.4 mg DAILY PO 12/28/24 10:00 01/10/25 12:54 0.4 MG Guaifenesin/ Dextromethorphan 15 ml Q8HR PRN PO 12/28/24 12:30 01/07/25 20:12 15 ML Alprazolam 1 mg TIDP PO 01/02/25 14:00 Cancel Albuterol 2.5 mg Q4HR NEB 01/02/25 18:00 01/10/25 19:58 2.5 MG Acetylcysteine 200 mg Q8HR NEB 01/02/25 22:00 01/10/25 13:36 200 MG Ipratropium [place] 0.5 mg Q4HR NEB 01/05/25 14:00 01/10/25 19:58 0.5 MG Melatonin 5 mg HS PO 01/07/25 22:00 01/09/25 23:14 5 MG Lisinopril 10 mg DAILY PO 01/11/25 10:00 Metoprolol Succinate 50 mg DAILY PO 01/11/25 10:00 Diagnostic Test (Pha) 1 strip Q6HR 01/10/25 12:00 01/10/25 17:37 1 STRIP Insulin Human Regular Q6HR SC 01/10/25 12:00 01/10/25 17:45 15 UNITS Dextrose 50 ml UD PRN IV 01/10/25 11:45 Vancomycin HCl 0 ml @ 0 mls/hr UD IV 01/10/25 11:45 Prednisone 40 mg DAILY PO 01/11/25 10:00 Pantoprazole Sodium 40 mg DAILY@0600 PO 01/11/25 06:00 Vancomycin HCl 100 ml @ 100 mls/hr Q8H IV 01/10/25 23:00 Piperacillin Sod/ Tazobactam Sod 100 ml @ 25 mls/hr Q8H IV 01/11/25 01:30 objective Gen.: Patient lying in bed in no apparent distress. On supplemental oxygen. Head: Normocephalic, atraumatic. Eyes: EOMI/PERRLA. Ears: Normal hearing. Normal anatomy. Neck/trachea: Trachea midline, supple. Nose: Normal external anatomy. Mouth: Moist mucous membranes. Chest: Decreased air entry bilaterally. Wheezing, improved. No rhonchi. Cardiovascular: Positive S1, positive S2. Regular rate and rhythm. Abdomen: Positive bowel sounds in all 4 quadrants. Soft, non-tender, non- distended. : Deferred. Rectal: Deferred. Skin: Warm, dry. Intact. Extremities: 2+ radial pulses bilaterally. No lower extremity edema. Neuro: Awake, alert, oriented x3. No gross motor or sensory deficits. Cranial nerves II through XII intact. Gait not assessed. laboratory and microbiology Laboratory Tests 01/10/25 08:14 01/08/25 06:39 Test 01/08/25 06:39 Range/Units Serum Glucose 473 *H 74-106 mg/dL Assessment/Plan Impression: Acute on chronic hypoxic respiratory failure Dependence on supplemental oxygen Atelectasis Pneumonitis Elevated D-dimer, PE ruled out Overweight, BMI 29.0 Events: Remains on supplemental oxygen, 6 LPM Oxymizer Taper O2 as tolerated S/p bronchoscopy today w/ RML BAL, brushings and biopsy. Large mucous plug removed from RML. Secretions cleared from L4-L10 and R4-R10. See separate procedure note for details. Follow up results from BAL, brushings and biopsy Chest x-ray reviewed, demonstrates right lower lobe opacity. No pneumothorax. Continue bronchodilators/CPT Continue antibiotics Continue steroids - taper as tolerated Antitussive PRN cough Incentive spirometry for atelectasis Diurese PRN Monitor renal function Protonix for GI prophylaxis Continue physical therapy DME for nebulizer and nebulizer supplies. Labs and imaging reviewed. Rest of plan as noted below. Plan: Supplemental oxygen Titrate to keep O2 sats above 92%. Continue bronchodilators. Continue antibiotics Continue steroids Antitussive PRN cough Incentive spirometry Monitor renal function. Monitor electrolytes. Supplement as necessary. Monitor ins and outs. DVT prophylaxis. Prognosis: Guarded given patient's multiple co-morbidities. Rest of plan per hospitalist and other consultants. Thank you, Dr. Franz, for allowing me to participate in this patient's care. Further recommendations will depend on the patient's clinical course. Please do not hesitate to contact me if you have any questions or concerns. This medical document was created using an electronic medical record system with [employer] computerized dictation system. Although these documentations are being carefully reviewed, there may still be some phonetic and typographical changes. The errors are purely typographical, due to imperfection on the software program, and do not reflect any compromise in the patient's medical care. Dietary Evaluation Review Recommendations by RD: Dietary education by RD Comments: 1) Add 60g CCHO restriction to cardiac diet order 2) Collect HbA1c 3) Refer to RD/CDCES for weight management 4) Continue plan of care Expected Outcomes/Goals: 1) appetite and labs to improve 2) f/u in 5 days Plan discussed with: Patient, Other (MILLA Billings) PABLO RODRIGUEZ MD Jan 10, 2025 21:06
[2025-01-10] MEDS: VANCOMYCIN 750MG KIT 100 ML IV SCH (23:27)
[2025-01-11] VITALS (21 sets, daily range): BP systolic 79–111; BP diastolic 50–80; PULSE 57–108; RESP 16–20; TEMP 96.7–98; O2SAT 90–97
[2025-01-11] MEDS: PIPERACILLIN-TAZOB 3.375GM 100 ML IV SCH (02:47)
[2025-01-11] MEDS: PANTOPRAZOLE 40 MG TAB PO SCH (06:38)
[2025-01-11 07:15] LABS: Basophils # (auto) 0 10 ^3/uL (0-0.2); Basophils % (auto) 0.1 % (0.0-2.0); Eosinophils # (auto) 0 10 ^3/uL (0-0.8); Eosinophils % (auto) 0.2 % (0.0-7.0); Hematocrit 40.8 % (41.0-53.0); Hemoglobin 13.9 g/dL (13.5-17.5); Lymphocytes # (auto) 2.5 10 ^3/uL (0.4-5.4); Lymphocytes % (auto) 12.9 % (10.0-50.0); Mean Corpuscular Hemoglobin 31.4 pg (28.0-32.0); Mean Corpuscular Volume 92.4 fL (80.0-100.0); Monocytes # (auto) 1.2 10 ^3/uL (0-1.3); Neutrophils # (auto) 15.8 10 ^3/uL (1.6-8.6); Neutrophils % (auto) 80.8 % (37.0-80.0); Nucleated Red Blood Cells % 0.1 %; Platelet Count (auto) 153 10^3/uL (140-450); Red Blood Cells 4.42 10^6/uL (4.5-5.90); Red Cell Distribution Width 12.3 % (11.8-14.3); White Blood Cell 19.5 10^3/uL (4.4-10.8)
[2025-01-11 07:36] LABS: Alkaline Phosphatase 86 U/L (46-116); Anion Gap 6 (5-15); Aspartate Aminotransferase 17 U/L (13-40); BUN/Creatinine Ratio 29.3 (10.0-20.0); Bilirubin, Total 0.7 mg/dL (0.2-1.0); Calcium 8.9 mg/dL (8.7-10.4); Chloride 99 mmol/L (98-107); Potassium 3.9 mmol/L (3.5-5.1); Sodium 138 mmol/L (136-145)
[2025-01-11 07:38] LABS: Alanine Aminotransferase 101 U/L (7-40); Blood Urea Nitrogen 29 mg/dL (9-23); Carbon Dioxide 33 mmol/L (20-31); Glucose 117 mg/dL (74-106); Total Protein 4.8 g/dL (5.7-8.2)
[2025-01-11] MEDS: predniSONE 20 MG TAB PO SCH (09:57)
[2025-01-11] MEDS: LISINOPRIL 20 MG TAB PO SCH (10:00)
[2025-01-11] MEDS: METOPROLOL SUCCINATE XL 50 MG TAB PO SCH (10:05)
--- NOTE | 2025-01-11 14:54 | DVHPN2 ---
Progress Note Date Seen: Jan 11, 2025 Medical Necessity Reason Pt with a Central, PICC or Fol: No Subjective Patient reports: No new complaints Review of Systems: HEENT:Normal, CVS:Normal, RESPIRATORY:Normal, GI:Normal, :Normal, MSK:Normal, NEURO:Normal Objective vital signs Vital Sign Date Time Temp Pulse Resp B/P (MAP) Pulse Ox O2 Delivery O2 Flow Rate FiO2 01/11/25 11:06 88 20 97 01/11/25 10:58 Oxymizer 5 N/A 01/11/25 10:05 104/68 01/11/25 09:00 97.9 97.9 Total Intake and Output 01/10/25 01/10/25 01/11/25 15:00 23:00 07:00 Intake Total 200 ml 950 ml 400 ml Output Total 9000 ml 375 ml Balance 200 ml -8050 ml 25 ml medications Current Medications Medications Dose Ordered Sig/Acssia Route Start Time Stop Time Status Last Admin Dose Admin Allopurinol 100 mg BID PO 12/27/24 22:00 01/11/25 09:57 100 MG Duloxetine HCl 30 mg DAILY PO 12/28/24 10:00 01/11/25 09:57 30 MG Methocarbamol 750 mg BID PO 12/28/24 10:00 01/11/25 09:57 750 MG Pregabalin 100 mg TID PO 12/28/24 06:00 01/11/25 06:38 100 MG Atorvastatin Calcium 20 mg HS PO 12/27/24 22:00 01/10/25 22:08 20 MG Sodium Chloride 10 ml Q8HR IV 12/27/24 22:00 01/11/25 13:47 10 ML Ondansetron HCl 4 mg Q4HP PRN IV 12/27/24 16:45 Docusate Sodium 100 mg BIDPRN PRN PO 12/27/24 16:45 Acetaminophen 650 mg Q6HP PRN PO 12/27/24 16:45 12/28/24 01:50 650 MG Tamsulosin HCl 0.4 mg DAILY PO 12/28/24 10:00 01/11/25 09:57 0.4 MG Guaifenesin/ Dextromethorphan 15 ml Q8HR PRN PO 12/28/24 12:30 01/07/25 20:12 15 ML Alprazolam 1 mg TIDP PO 01/02/25 14:00 Cancel Albuterol 2.5 mg Q4HR NEB 01/02/25 18:00 01/11/25 10:58 2.5 MG Acetylcysteine 200 mg Q8HR NEB 01/02/25 22:00 01/11/25 07:23 200 MG Ipratropium [place] 0.5 mg Q4HR NEB 01/05/25 14:00 01/11/25 10:58 0.5 MG Melatonin 5 mg HS PO 01/07/25 22:00 01/10/25 22:09 5 MG Lisinopril 10 mg DAILY PO 01/11/25 10:00 Metoprolol Succinate 50 mg DAILY PO 01/11/25 10:00 01/11/25 10:05 50 MG Diagnostic Test (Pha) 1 strip Q6HR 01/10/25 12:00 01/11/25 11:49 1 STRIP Insulin Human Regular Q6HR SC 01/10/25 12:00 01/11/25 11:56 9 UNITS Dextrose 50 ml UD PRN IV 01/10/25 11:45 Vancomycin HCl 0 ml @ 0 mls/hr UD IV 01/10/25 11:45 Prednisone 40 mg DAILY PO 01/11/25 10:00 01/11/25 09:57 40 MG Pantoprazole Sodium 40 mg DAILY@0600 PO 01/11/25 06:00 01/11/25 06:38 40 MG Vancomycin HCl 100 ml @ 100 mls/hr Q8H IV 01/10/25 23:00 01/11/25 08:17 100 MLS/HR Piperacillin Sod/ Tazobactam Sod 100 ml @ 25 mls/hr Q8H IV 01/11/25 01:30 01/11/25 09:54 25 MLS/HR Examination: GENERAL:Normal, HEENT:Normal, NECK:Normal, LUNGS:Normal, LUNGS:Abnormal (ON OXYGEN), CVS:Normal, ABDOMEN:Normal, MSK:Normal, SKIN:Normal, NEURO:Normal, :Normal laboratory and microbiology Laboratory Tests 01/11/25 06:33 Test 01/11/25 06:33 Range/Units Serum Glucose 117 #H 74-106 mg/dL Microbiology Date/Time Source Procedure Growth Status 01/10/25 14:00 Lung Pending Resulted 01/10/25 14:00 Lung Pending Resulted 01/10/25 14:00 Lung Pending Resulted 01/10/25 14:00 Lung Pending Resulted 01/10/25 14:00 Lung - Final See Separate Report... Resulted 01/10/25 14:00 Bronchial Washings Gram Stain - Final Resulted 01/10/25 14:00 Bronchial Washings Respiratory Culture - Preliminary Resulted 01/06/25 10:45 Blood Blood Culture - Final NO GROWTH AFTER 5 DAYS OF INCUBATION. Complete Problem List/Assessment/Plan Problem List/Assessment/Plan #1 acute resp failure: cont oxygen #2 pneumonia/right middle lobe- gram positive/neg: vanc, zosyn #3 tobacco abuse: advised to quit- time spent 11 mins #4 likely copd with exacerbation: prednisone #5 s/p gastric bypass #6 hyperglycemia: ssi' #7 htn #8 gout advance care planning-full code- time spent 19mins Plan discussed with: Patient My Orders My Orders Orders - GREY STRANEG MD Procedure Category Date Status Time Vancomycin 750mg Kit PHA 01/10/25 In Process (Vancomycin Hcl) 23:00 Vancomycin Per DEVIN 01/11/25 In Process Pharmacy Protoc 15:00 Vancomycin,Trough LAB 01/11/25 In Process 14:00 Consistent DIET 01/11/25 Transmitted Carb(Ccho)Diabetes Breakfast Metoprolol Xl PHA 01/12/25 Transmitted Succinate (Toprol Xl) 10:00 Prednisone Tablet PHA 01/12/25 Transmitted 10:00 Basic Metabolic Panel LAB 01/12/25 Verified 06:00 Complete Blood Count LAB 01/12/25 Verified 06:00 Dietary Evaluation Review Recommendations by RD: Dietary education by RD Comments: 1) Add 60g CCHO restriction to cardiac diet order 2) Collect HbA1c 3) Refer to RD/CDCES for weight management 4) Continue plan of care Expected Outcomes/Goals: 1) appetite and labs to improve 2) f/u in 5 days Date of Service: Jan 11, 2025 Billing Provider: GREY STRANGE MD Common Visit Codes: [id number] INP/OBS CARE(HIGH) GREY STRANGE MD Jan 11, 2025 14:54
[2025-01-11] MEDS: VANCOMYCIN 1GM/250ML KIT 250 ML IV SCH (17:54)
[2025-01-12] VITALS (18 sets, daily range): BP systolic 103–127; BP diastolic 55–80; PULSE 69–110; RESP 16–20; TEMP 97.6–98.4; O2SAT 91–98
[2025-01-12 07:14] LABS: Basophils # (auto) 0.1 10 ^3/uL (0-0.2); Basophils % (auto) 0.3 % (0.0-2.0); Eosinophils # (auto) 0 10 ^3/uL (0-0.8); Eosinophils % (auto) 0.2 % (0.0-7.0); Hematocrit 40.1 % (41.0-53.0); Hemoglobin 13.8 g/dL (13.5-17.5); Lymphocytes # (auto) 2.5 10 ^3/uL (0.4-5.4); Lymphocytes % (auto) 13.5 % (10.0-50.0); Mean Corpuscular Hemoglobin 31.6 pg (28.0-32.0); Mean Corpuscular Hgb Conc. 34.4 g/dL (32.0-36.0); Mean Corpuscular Volume 91.9 fL (80.0-100.0); Monocytes # (auto) 1.2 10 ^3/uL (0-1.3); Monocytes % (auto) 6.6 % (0.0-12.0); Neutrophils # (auto) 14.7 10 ^3/uL (1.6-8.6); Neutrophils % (auto) 79.4 % (37.0-80.0); Nucleated Red Blood Cells % 0.1 %; Platelet Count (auto) 159 10^3/uL (140-450); Red Blood Cells 4.37 10^6/uL (4.5-5.90); Red Cell Distribution Width 12.5 % (11.8-14.3); White Blood Cell 18.5 10^3/uL (4.4-10.8)
[2025-01-12 07:25] LABS: Anion Gap 7 (5-15); Carbon Dioxide 30 mmol/L (20-31); Chloride 100 mmol/L (98-107); Sodium 137 mmol/L (136-145)
[2025-01-12 07:26] LABS: Calcium 8.7 mg/dL (8.7-10.4); Potassium 3.3 mmol/L (3.5-5.1)
[2025-01-12 07:31] LABS: BUN/Creatinine Ratio 21.6 (10.0-20.0); Blood Urea Nitrogen 22 mg/dL (9-23); Glucose 172 mg/dL (74-106)
[2025-01-12] MEDS: POTASSIUM EFFERVESENT TAB 25 MEQ PO ONE (09:50)
[2025-01-12] MEDS: predniSONE 20 MG TAB PO SCH (09:50)
[2025-01-12] MEDS: METOPROLOL SUCCINATE XL 50 MG TAB PO SCH (09:52)
--- NOTE | 2025-01-12 11:14 | DVHPN2 ---
Subjective Patient reports that his shortness of breath is improving. Continues to report having productive cough. Reviewed: Care Plan, H&P, Labs, Medications, Previous Orders, Radiology Changes from previous H/P or p: Changes Eyes: No Pain, No Vision change, No Conjunctivae inflammation, No Eyelid inflammation, No Other, No Redness ENT: No Ear pain, No Ear discharge, No Nose pain, No Nose discharge, No Nose congestion, No Mouth pain, No Mouth swelling, No Throat pain, No Throat swelling, No Other Cardiovascular: No Chest Pain, No Palpitations, No Orthopnea, No Paroxysmal Noc. Dyspnea, No Edema, No Lt Headedness, No Other Respiratory: Cough, Shortness of breath, SOB with excertion, Wheezing, P leuritic Pain, Sputum Gastrointestinal: No Nausea, No Vomiting, No Abdominal Pain, No Diarrhea, No Constipation, No Melena, No Hematochezia, No Other Genitourinary: No Dysuria, No Frequency, No Incontinence, No Hematuria, No Retention, No Other Musculoskeletal: No other, No neck pain, No shoulder pain, No arm pain, No back pain, No hand pain, No leg pain, No foot pain Skin: No Rash, No Lesions, No Jaundice, No Bruising, No Other Objective Vitals Vital Signs Date Time Temp Pulse Resp B/P (MAP) Pulse Ox O2 Delivery O2 Flow Rate FiO2 01/12/25 09:53 113/80 01/12/25 09:52 78 01/12/25 09:00 97.8 18 94 97.8 01/12/25 06:12 Nasal Cannula* 4 36 Intake/Output Intake and Output 01/12/25 07:00 Intake Total 1350 ml Output Total 750 ml Balance 600 ml Intake Oral 1250 ml IV Total 100 ml Output Urine Total 750 ml # Voids 1 # Bowel Movements 3 General Appearance: Alert, Oriented X3, Cooperative, mild distress HEENT: Atraumatic, PERRLA Lungs: Normal air movement, Other (Rhonchi to right lower lobe) Cardiovascular: Normal S1, Normal S2 Musculoskeletal: Normal sensory function, Normal motor function Neuro: Normal gait, Normal speech Skin: Dry, Intact Psych/Mental Status: Mental status NL, Mood NL Medications Current Medications Medications Dose Ordered Sig/Cassia Route Start Time Stop Time Status Last Admin Dose Admin Allopurinol 100 mg BID PO 12/27/24 22:00 01/12/25 09:51 100 MG Duloxetine HCl 30 mg DAILY PO 12/28/24 10:00 01/12/25 09:50 30 MG Methocarbamol 750 mg BID PO 12/28/24 10:00 01/12/25 09:51 750 MG Atorvastatin Calcium 20 mg HS PO 12/27/24 22:00 01/11/25 21:19 20 MG Sodium Chloride 10 ml Q8HR IV 12/27/24 22:00 01/12/25 06:06 10 ML Ondansetron HCl 4 mg Q4HP PRN IV 12/27/24 16:45 Docusate Sodium 100 mg BIDPRN PRN PO 12/27/24 16:45 Acetaminophen 650 mg Q6HP PRN PO 12/27/24 16:45 12/28/24 01:50 650 MG Tamsulosin HCl 0.4 mg DAILY PO 12/28/24 10:00 01/12/25 09:51 0.4 MG Guaifenesin/ Dextromethorphan 15 ml Q8HR PRN PO 12/28/24 12:30 01/07/25 20:12 15 ML Alprazolam 1 mg TIDP PO 01/02/25 14:00 Cancel Albuterol 2.5 mg Q4HR NEB 01/02/25 18:00 01/12/25 10:11 2.5 MG Acetylcysteine 200 mg Q8HR NEB 01/02/25 22:00 01/12/25 06:12 200 MG Ipratropium [place] 0.5 mg Q4HR NEB 01/05/25 14:00 01/12/25 10:11 0.5 MG Melatonin 5 mg HS PO 01/07/25 22:00 01/11/25 21:19 5 MG Lisinopril 10 mg DAILY PO 01/11/25 10:00 01/12/25 09:53 10 MG Diagnostic Test (Pha) 1 strip Q6HR 01/10/25 12:00 01/12/25 06:27 1 STRIP Insulin Human Regular Q6HR SC 01/10/25 12:00 01/12/25 06:23 2 UNITS Dextrose 50 ml UD PRN IV 01/10/25 11:45 Vancomycin HCl 0 ml @ 0 mls/hr UD IV 01/10/25 11:45 Pantoprazole Sodium 40 mg DAILY@0600 PO 01/11/25 06:00 01/12/25 06:11 40 MG Piperacillin Sod/ Tazobactam Sod 100 ml @ 25 mls/hr Q8H IV 01/11/25 01:30 01/12/25 09:54 25 MLS/HR Metoprolol Succinate 25 mg DAILY PO 01/12/25 10:00 01/12/25 09:52 25 MG Prednisone 30 mg DAILY PO 01/12/25 10:00 01/12/25 09:50 30 MG Vancomycin HCl 250 ml @ 250 mls/hr Q12H IV 01/11/25 18:00 01/12/25 06:17 250 MLS/HR Laboratory Results Laboratory Tests 01/12/25 06:49 Chemistry Test 01/12/25 06:49 Calcium Level 8.7 mg/dL (8.7-10.4) Microbiology Microbiology Date/Time Source Procedure Growth Status 01/10/25 14:00 Lung Pending Resulted 01/10/25 14:00 Lung Pending Resulted 01/10/25 14:00 Lung Pending Resulted 01/10/25 14:00 Lung Pending Resulted 01/10/25 14:00 Lung - Final See Separate Report... Resulted 01/10/25 14:00 Bronchial Washings Gram Stain - Final Resulted 01/10/25 14:00 Bronchial Washings Respiratory Culture - Preliminary Resulted 01/06/25 10:45 Blood Blood Culture - Final NO GROWTH AFTER 5 DAYS OF INCUBATION. Complete Labs and/or images reviewed: Labs reviewed by me, Image(s) reviewed by me Assessment/Plan Assessment/Plan Impression: -acute hypoxic respiratory failure, due to community-acquired pneumonia -community-acquired pneumonia, probable Gram-positive/Gram-negative etiology -nicotine dependence -sepsis -hypoglycemia -history of gastric bypass -COPD with exacerbation -gout Plan: -pulmonology consultation: Patient had bronchoscopy with improvement with right middle lobe. -repeat chest x-ray today: Reviewed with improvement with right middle lobe opacities -continue bronchodilators -continue prednisone -continue broaden antibiotic therapy with Zosyn and vancomycin -out of bed as tolerated -regular insulin sliding scale -antihypertensives -continue to wean O2 supplementation to keep saturation greater than 92%. Currently on 4 L via nasal cannula. Total time spent with patient discussing and formulating plan of care: 35 minutes. This medical document was created using an electronic medical record system with Dragon computerized dictation system. Although this document has been carefully reviewed, there may still be some phonetic and typographical errors. These areas are purely typographical due to imperfections of the software programs, and do not reflect any compromise in the patient's medical care. Plan discussed with: Patient, Other (RN) My Orders Orders - BLAINE AGUIAR NP Procedure Category Date Status Time Chest Xray 1 View XY 01/12/25 Taken 09:37 Date of Service: Jan 12, 2025 Billing Provider: BLAINE AGUIAR NP Common Visit Codes: [id number] INP/OBS CARE(HIGH) BLAINE AGUIAR NP Jan 12, 2025 11:14
--- NOTE | 2025-01-12 12:01 | DVH ---
CHEST RADIOGRAPH Indication: pna Technique: Single frontal view of the chest was obtained Comparison: XY CHEST PORTABLE on DOS: 01/10/25, XY CHEST XRAY 1 VIEW on DOS: 01/08/25, XY CHEST XRAY 1 VIEW on DOS: 12/28/24, XY CHEST PORTABLE on DOS: 12/27/24, CHEST XRAY 1 VIEW on DOS: 12/24/20 FINDINGS: Lines and Tubes: None Lungs: Improved aeration of the right lower lobe. Pleura: No effusion. No pneumothorax. Cardiomediastinal contours: Unremarkable Bones: No acute osseous abnormality. IMPRESSION: Improved aeration of the right lower lobe.
--- NOTE | 2025-01-12 23:05 | DVHPN2 ---
Progress Note - Dictate Date Seen: Jan 12, 2025 Medical Necessity Reason Pt with a Central, PICC or Fol: No Subjective Patient seen and examined at bedside. Remains on supplemental oxygen Overnight events reviewed. vital signs Vital Sign Date Time Temp Pulse Resp B/P (MAP) Pulse Ox O2 Delivery O2 Flow Rate FiO2 01/12/25 21:00 98.4 69 19 108/73 (85) 96 98.4 01/12/25 20:00 Nasal Cannula* 5 40 Total Intake and Output 01/11/25 01/11/25 01/12/25 15:00 23:00 07:00 Intake Total 100 ml 450 ml 800 ml Output Total 750 ml Balance 100 ml -300 ml 800 ml medications Current Medications Medications Dose Ordered Sig/Cassia Route Start Time Stop Time Status Last Admin Dose Admin Allopurinol 100 mg BID PO 12/27/24 22:00 01/12/25 20:36 100 MG Duloxetine HCl 30 mg DAILY PO 12/28/24 10:00 01/12/25 09:50 30 MG Methocarbamol 750 mg BID PO 12/28/24 10:00 01/12/25 20:36 750 MG Atorvastatin Calcium 20 mg HS PO 12/27/24 22:00 01/12/25 20:36 20 MG Sodium Chloride 10 ml Q8HR IV 12/27/24 22:00 01/12/25 20:47 10 ML Ondansetron HCl 4 mg Q4HP PRN IV 12/27/24 16:45 Docusate Sodium 100 mg BIDPRN PRN PO 12/27/24 16:45 Acetaminophen 650 mg Q6HP PRN PO 12/27/24 16:45 12/28/24 01:50 650 MG Tamsulosin HCl 0.4 mg DAILY PO 12/28/24 10:00 01/12/25 09:51 0.4 MG Alprazolam 1 mg TIDP PO 01/02/25 14:00 Cancel Albuterol 2.5 mg Q4HR NEB 01/02/25 18:00 01/12/25 22:53 2.5 MG Acetylcysteine 200 mg Q8HR NEB 01/02/25 22:00 01/12/25 18:02 200 MG Ipratropium [place] 0.5 mg Q4HR NEB 01/05/25 14:00 01/12/25 22:53 0.5 MG Melatonin 5 mg HS PO 01/07/25 22:00 01/12/25 20:36 5 MG Lisinopril 10 mg DAILY PO 01/11/25 10:00 01/12/25 09:53 10 MG Diagnostic Test (Pha) 1 strip Q6HR 01/10/25 12:00 01/12/25 18:00 1 STRIP Insulin Human Regular Q6HR SC 01/10/25 12:00 01/12/25 20:54 9 UNITS Dextrose 50 ml UD PRN IV 01/10/25 11:45 Vancomycin HCl 0 ml @ 0 mls/hr UD IV 01/10/25 11:45 Pantoprazole Sodium 40 mg DAILY@0600 PO 01/11/25 06:00 01/12/25 06:11 40 MG Metoprolol Succinate 25 mg DAILY PO 01/12/25 10:00 01/12/25 09:52 25 MG Prednisone 30 mg DAILY PO 01/12/25 10:00 01/12/25 09:50 30 MG Vancomycin HCl 250 ml @ 250 mls/hr Q12H IV 01/11/25 18:00 01/12/25 06:17 250 MLS/HR Piperacillin Sod/ Tazobactam Sod 100 ml @ 25 mls/hr Q8H IV 01/13/25 03:00 objective Gen.: Patient lying in bed in no apparent distress. On supplemental oxygen. Head: Normocephalic, atraumatic. Eyes: EOMI/PERRLA. Ears: Normal hearing. Normal anatomy. Neck/trachea: Trachea midline, supple. Nose: Normal external anatomy. Mouth: Moist mucous membranes. Chest: Decreased air entry bilaterally. Wheezing, improved. No rhonchi. Cardiovascular: Positive S1, positive S2. Regular rate and rhythm. Abdomen: Positive bowel sounds in all 4 quadrants. Soft, non-tender, non- distended. : Deferred. Rectal: Deferred. Skin: Warm, dry. Intact. Extremities: 2+ radial pulses bilaterally. No lower extremity edema. Neuro: Awake, alert, oriented x3. No gross motor or sensory deficits. Cranial nerves II through XII intact. Gait not assessed. laboratory and microbiology Laboratory Tests 01/12/25 06:49 Test 01/12/25 06:49 Range/Units Serum Glucose 172 H 74-106 mg/dL Assessment/Plan Impression: Acute on chronic hypoxic respiratory failure Dependence on supplemental oxygen Atelectasis Pneumonitis Elevated D-dimer, PE ruled out Overweight, BMI 29.0 Events: Remains on supplemental oxygen Tapered to 4 LPM NC Taper O2 as tolerated Chest x-ray reviewed, demonstrates improved aeration of the right lower lobe. No effusion or pneumothorax. Continue bronchodilators/CPT Continue antibiotics Continue steroids - taper as tolerated Antitussive PRN cough Incentive spirometry for atelectasis Diurese PRN Monitor renal function Protonix for GI prophylaxis Continue physical therapy Patient is stable for discharge from the pulmonary standpoint. Follow up in 1-2 weeks in Pulmonary Clinic. DME for nebulizer and nebulizer supplies. S/p bronchoscopy on 01/10/25 w/ RML BAL, brushings and biopsy. Large mucous plug removed from RML. Secretions cleared from L4-L10 and R4-R10. See separate procedure note for details. Follow up results from BAL, brushings and biopsy Labs and imaging reviewed. Rest of plan as noted below. Plan: Supplemental oxygen Titrate to keep O2 sats above 92%. Continue bronchodilators. Continue antibiotics Continue steroids Antitussive PRN cough Incentive spirometry Monitor renal function. Monitor electrolytes. Supplement as necessary. Monitor ins and outs. DVT prophylaxis. Prognosis: Guarded given patient's multiple co-morbidities. Rest of plan per hospitalist and other consultants. Thank you, Dr. Franz, for allowing me to participate in this patient's care. Further recommendations will depend on the patient's clinical course. Please do not hesitate to contact me if you have any questions or concerns. This medical document was created using an electronic medical record system with [employer] dictation system. Although these documentations are being carefully reviewed, there may still be some phonetic and typographical changes. The errors are purely typographical, due to imperfection on the software program, and do not reflect any compromise in the patient's medical care. Dietary Evaluation Review Recommendations by RD: Dietary education by RD Comments: 1) Add 60g CCHO restriction to cardiac diet order 2) Collect HbA1c 3) Refer to RD/CDCES for weight management 4) Continue plan of care Expected Outcomes/Goals: 1) appetite and labs to improve 2) f/u in 5 days Plan discussed with: Patient, Other (MILLA Singh) PABLO RODRIGUEZ MD Jan 12, 2025 23:05
[2025-01-13] VITALS (13 sets, daily range): BP systolic 108–152; BP diastolic 70–90; PULSE 60–92; RESP 17–20; TEMP 97.7–98.1; O2SAT 92–98
[2025-01-13] MEDS: PIPERACILLIN-TAZOB 3.375GM 100 ML IV SCH (01:37)
--- NOTE | 2025-01-13 15:59 | DVHPN2 ---
Progress Note - Dictate Date Seen: Jan 13, 2025 Medical Necessity Reason Pt with a Central, PICC or Fol: No Subjective Patient seen and examined Overnight events reviewed vital signs Vital Sign Date Time Temp Pulse Resp B/P (MAP) Pulse Ox O2 Delivery O2 Flow Rate FiO2 01/13/25 14:16 96 Room Air* 0 21 01/13/25 12:01 98.0 74 19 152/90 (110) 98.0 Total Intake and Output 01/12/25 01/12/25 01/13/25 15:00 23:00 07:00 Intake Total 100 ml 625 ml 750 ml Output Total 600 ml Balance 100 ml 25 ml 750 ml medications Current Medications Medications Dose Ordered Sig/Cassia Route Start Time Stop Time Status Last Admin Dose Admin Allopurinol 100 mg BID PO 12/27/24 22:00 01/13/25 11:09 100 MG Duloxetine HCl 30 mg DAILY PO 12/28/24 10:00 01/13/25 11:09 30 MG Methocarbamol 750 mg BID PO 12/28/24 10:00 01/13/25 11:09 750 MG Atorvastatin Calcium 20 mg HS PO 12/27/24 22:00 01/12/25 20:36 20 MG Sodium Chloride 10 ml Q8HR IV 12/27/24 22:00 01/13/25 06:19 10 ML Ondansetron HCl 4 mg Q4HP PRN IV 12/27/24 16:45 Docusate Sodium 100 mg BIDPRN PRN PO 12/27/24 16:45 Acetaminophen 650 mg Q6HP PRN PO 12/27/24 16:45 12/28/24 01:50 650 MG Tamsulosin HCl 0.4 mg DAILY PO 12/28/24 10:00 01/13/25 11:09 0.4 MG Alprazolam 1 mg TIDP PO 01/02/25 14:00 Cancel Albuterol 2.5 mg Q4HR NEB 01/02/25 18:00 01/12/25 22:53 2.5 MG Acetylcysteine 200 mg Q8HR NEB 01/02/25 22:00 01/12/25 18:02 200 MG Ipratropium Aspers 0.5 mg Q4HR NEB 01/05/25 14:00 01/12/25 22:53 0.5 MG Melatonin 5 mg HS PO 01/07/25 22:00 01/12/25 20:36 5 MG Lisinopril 10 mg DAILY PO 01/11/25 10:00 01/13/25 11:10 10 MG Diagnostic Test (Pha) 1 strip Q6HR 01/10/25 12:00 01/13/25 12:00 1 STRIP Insulin Human Regular Q6HR SC 01/10/25 12:00 01/13/25 12:00 3 UNITS Dextrose 50 ml UD PRN IV 01/10/25 11:45 Vancomycin HCl 0 ml @ 0 mls/hr UD IV 01/10/25 11:45 Pantoprazole Sodium 40 mg DAILY@0600 PO 01/11/25 06:00 01/13/25 06:18 40 MG Metoprolol Succinate 25 mg DAILY PO 01/12/25 10:00 01/13/25 11:10 25 MG Prednisone 30 mg DAILY PO 01/12/25 10:00 01/13/25 11:09 30 MG Vancomycin HCl 250 ml @ 250 mls/hr Q12H IV 01/11/25 18:00 01/13/25 06:16 250 MLS/HR Piperacillin Sod/ Tazobactam Sod 100 ml @ 25 mls/hr Q8H IV 01/13/25 03:00 01/13/25 11:13 25 MLS/HR laboratory and microbiology Laboratory Tests 01/12/25 06:49 Test 01/12/25 06:49 Range/Units Serum Glucose 172 H 74-106 mg/dL Assessment/Plan Impression Acute hypoxemic respiratory failure Elevated d-dimer Pneumonia Atelectasis Patient seen and examined Events Low oxygen requirements On 2 liters nasal cannula No acute events Labs and imaging reviewed Management Supplemental oxygen Titrate to maintain sats 90% or above Incentive spirometry Continue antibiotics F/u cultures Bronchodilators Steroid taper course Monitor renal function Monitor electrolytes Supplement as needed Okay to discharge from pulmonary standpoint DVT prophylaxis Dietary Evaluation Review Recommendations by RD: Dietary education by RD Comments: 1) Add 60g CCHO restriction to cardiac diet order 2) Collect HbA1c 3) Refer to RD/[facility] for weight management 4) Continue plan of care Expected Outcomes/Goals: 1) appetite and labs to improve 2) f/u in 5 days Plan discussed with: Patient JAZMÍN HOUSER MD Jan 13, 2025 15:59
[2025-01-13] MEDS ORDERED: AUG875T PO (18:00)
[2025-01-13] MEDS ORDERED: GUAI200T6 PO (18:00)
[2025-01-13] MEDS ORDERED: DOXY100C79 PO (18:00)
--- NOTE | 2025-01-13 18:00 | DVHDS2 ---
Discharge Summary Date of Admission Dec 27, 2024 at 16:43 Date of Discharge: Jan 14, 2025 Admitting Diagnosis Acute hypoxic respiratory failure Labs/Diagnostic Data: Laboratory Results Test 01/13/25 17:34 01/13/25 17:29 01/12/25 19:29 01/12/25 06:49 POC Glucose 284 mg/dl (70-106) Miscellaneous Referred Test (Rm Tmp Sent to [facility] White Blood Count 18.5 10^3/uL (4.4-10.8) Red Blood Count 4.37 10^6/uL (4.5-5.90) Hemoglobin 13.8 g/dL (13.5-17.5) Hematocrit 40.1 % (41.0-53.0) Mean Corpuscular Volume 91.9 fL (80.0-100.0) Mean Corpuscular Hemoglobin 31.6 pg (28.0-32.0) Mean Corpuscular Hemoglobin Concent 34.4 g/dL (32.0-36.0) Red Cell Distribution Width 12.5 % (11.8-14.3) Platelet Count 159 10^3/uL (140-450) Mean Platelet Volume 7.9 fL (6.9-10.8) Neutrophils (%) (Auto) 79.4 % (37.0-80.0) Lymphocytes (%) (Auto) 13.5 % (10.0-50.0) Monocytes (%) (Auto) 6.6 % (0.0-12.0) Eosinophils (%) (Auto) 0.2 % (0.0-7.0) Basophils (%) (Auto) 0.3 % (0.0-2.0) Neutrophils # (Auto) 14.7 10 ^3/uL (1.6-8.6) Lymphocytes # (Auto) 2.5 10 ^3/uL (0.4-5.4) Monocytes # (Auto) 1.2 10 ^3/uL (0-1.3) Eosinophils # (Auto) 0 10 ^3/uL (0-0.8) Basophils # (Auto) 0.1 10 ^3/uL (0-0.2) Nucleated Red Blood Cells 0.1 % Sodium Level 137 mmol/L (136-145) Potassium Level 3.3 mmol/L (3.5-5.1) Chloride Level 100 mmol/L (98-107) Carbon Dioxide Level 30 mmol/L (20-31) Anion Gap 7 (5-15) Blood Urea Nitrogen 22 mg/dL (9-23) BUN/Creatinine Ratio 21.6 (10.0-20.0) Serum Glucose 172 mg/dL (74-106) Calcium Level 8.7 mg/dL (8.7-10.4) Test 01/11/25 14:12 01/11/25 06:33 01/10/25 08:14 01/06/25 20:50 Vancomycin Level Trough 19.8 ug/mL (5-10) Total Bilirubin 0.7 mg/dL (0.2-1.0) Aspartate Amino Transferase (AST) 17 U/L (13-40) Alanine Aminotransferase (ALT) 101 U/L (7-40) Alkaline Phosphatase 86 U/L (46-116) Total Protein 4.8 g/dL (5.7-8.2) Albumin 3.0 g/dL (3.2-4.8) Prothrombin Time 10.9 sec (9.3-11.8) Prothrombin Time INR 1.03 (0.9-1.15) Activated Partial Thromboplast Time 22.5 SEC (24.5-34.5) Influenza Type A Antigen Negative (Negative) Influenza Type B Antigen Negative (Negative) SARS-CoV-2 Antigen (Rapid) Negative (NEGATIVE) Test 12/28/24 14:15 12/28/24 05:59 12/27/24 12:06 D-Dimer, Quantitative 0.56 mg/L FEU (0.0-0.49) Thyroid Stimulating Hormone (TSH) 0.66 uIU/mL (0.55-4.78) B-Type Natriuretic Peptide 53.04 pg/mL (0-100) Troponin I High Sensitivity 3 ng/L (</=54) Other Laboratory Tests 01/12/25 06:49 Brief Hx & Hospital Course: istory of Present Illness Emmett Sharma is a 69-year-old male with past medical history of hypertension, hyperlipidemia, and gout who came in for shortness of breath. Patient states he began getting sick with flu like symptoms the beginning of November. He went to his primary care provider the beginning of December due to symptoms persisting. He was given a Z-pack and states at first he was feeling better then his symptoms worsened prompting him to come to the hospital. Patient states he has a productive cough, and shortness of breath. Denies any fevers, nausea, vomiting, or diarrhea. Patient's O2 sats on RA were in the 80's on arrival. he was placed on 2L NC and improved to mid 90's. On assessment patient is able to speak in full sentences, but he has a productive cough, with wheezing and rhonchi in bilateral lung hernandez. Patient has a history of diabetes, but had gastri bypass years ago, lost 70lbs and was able to stop all his diabetic medications. He recently went on Ozempic for weight loss. Hospitalization: Patient had CT angiogram of the chest is negative for pulmonary embolism. Patient was noted to have right middle lobe pneumonia. Pulmonology consultation was obtained. Patient had broaden antibiotic therapy. Patient underwent bronchoscopy with improvement with the patient's symptoms. Patient was continued on bronchodilators, O2 supplementation which was weaned off. Patient has been ambulating without any signs of dyspnea. Repeat chest x-rays reveal marked improvement with right middle lobe opacities. Patient has been afebrile. He was requesting to be discharged home. Patient will be provided continued antibiotic coverage with both Augmentin and doxycycline for additional seven days. He was instructed to follow up with his PCP as well as pulmonology in 1-2 weeks. All questions answered. Physical examination General: Alert and Oriented x3. No acute distress. Well-nourished. Eyes: EOMI. Anicteric. HENT: Moist mucous membranes. Lungs: Clear to auscultation bilaterally. No accessory muscle use. Cardiovascular: Regular rate and rhythm. No murmur. No JVD. Abdomen: Soft, non-tender and non-distended. No palpable masses. Extremities: No edema. Non-tender. Skin: No rashes or lesions. Warm. Neurologic: No focal neurological deficits. CN II-XII grossly intact, but not individually tested. Psychiatric: Cooperative. Appropriate mood and affect. Total time spent with patient discussing and formulating plan of care: 35 minutes. This medical document was created using an electronic medical record system with [employer] system. Although this document has been carefully reviewed, there may still be some phonetic and typographical errors. These areas are purely typographical due to imperfections of the software programs, and do not reflect any compromise in the patient's medical care. Consults/Reason for consult Pulmonology: Acute respiratory failure Operations or Procedures Bronchoscopy Condition at Discharge: Guarded Final Diagnosis/Problems List -acute hypoxic respiratory failure, due to community-acquired pneumonia -community-acquired pneumonia, probable Gram-positive/Gram-negative etiology -nicotine dependence -sepsis -hypoglycemia -history of gastric bypass -COPD with exacerbation -gout Discharge Disposition: Home Discharge Instruct/Medications Diet: Regular, Consistent carbohydrate Follow Up/Referral: PCP in 1-2 weeks Pulmonology in 1-2 weeks Medications: Continue all home medications Doxycycline 100 mg p.o. b.i.d. x7 days Augmentin 875 mg p.o. b.i.d. x7 days Guaifenesin 200 mg p.o. daily 36 Discharge Statement: "Patient was advised to return to the ER or call 911 if any headaches, dizziness, shortness of breath, chest pain, abdominal pain, bleeding, fevers, or worsening of medical condition. Patient was counseled about treatment plan, medications, possible side effects, patientverbalized understanding. All questions were answered to the best of my ability. This discharge took greater then 30 minutes in planning, reviewing documentation, counseling the patient, and discussing with other team members." ASSESSMENT ASSESSMENT Assessment Date of Service: Jan 14, 2025 Billing Provider: BLAINE AGUIAR NP Common Visit Codes: 40643-KES/OBS DISCH DAY >30min BLAINE AGUIAR NP Jan 13, 2025 18:00
== END 2025-01-13 20:00 | disposition home or self-care (01) | DRG 871 ==
LOC: ER 11:28 → OVERFLOW 16:43 → EAST 23:04 → TELE-EAST 12-28 14:37 → EAST 12-29 11:33
PROVIDERS: ADMIT Internal Medicine; ATTEND Internal Medicine
PROC: 0BD58ZX Extraction of Right Middle Lobe Bronchus, Via Natural or Artificial Opening Endoscopic, Diagnostic (ICD-10-PCS; 2025-01-10)
PROC: 0BC38ZZ Extirpation of Matter from Right Main Bronchus, Via Natural or Artificial Opening Endoscopic (ICD-10-PCS; 2025-01-10)
PROC: 0BC78ZZ Extirpation of Matter from Left Main Bronchus, Via Natural or Artificial Opening Endoscopic (ICD-10-PCS; 2025-01-10)
PROC: 0B9D8ZX Drainage of Right Middle Lung Lobe, Via Natural or Artificial Opening Endoscopic, Diagnostic (ICD-10-PCS; principal; 2025-01-10 09:41)
DX: A41.9 Sepsis, unspecified organism (principal); J15.69 Pneumonia due to other Gram-negative bacteria; J96.21 Acute and chronic respiratory failure with hypoxia; J15.9 Unspecified bacterial pneumonia; J44.1 Chronic obstructive pulmonary disease with (acute) exacerbation; J44.0 Chronic obstructive pulmonary disease with (acute) lower respiratory infection; I50.9 Heart failure, unspecified; E66.01 Morbid (severe) obesity due to excess calories; I11.0 Hypertensive heart disease with heart failure; I25.10 Atherosclerotic heart disease of native coronary artery without angina pectoris; E11.649 Type 2 diabetes mellitus with hypoglycemia without coma; F17.200 Nicotine dependence, unspecified, uncomplicated; Z20.822 Contact with and (suspected) exposure to COVID-19; Z68.29 Body mass index [BMI] 29.0-29.9, adult; M10.9 Gout, unspecified; J84.10 Pulmonary fibrosis, unspecified; K44.9 Diaphragmatic hernia without obstruction or gangrene; F41.9 Anxiety disorder, unspecified; E78.5 Hyperlipidemia, unspecified; E11.65 Type 2 diabetes mellitus with hyperglycemia; Z99.81 Dependence on supplemental oxygen; Z98.84 Bariatric surgery status; Z79.2 Long term (current) use of antibiotics; Z79.899 Other long term (current) drug therapy; Z79.1 Long term (current) use of non-steroidal anti-inflammatories (NSAID); Z80.0 Family history of malignant neoplasm of digestive organs; Z79.891 Long term (current) use of opiate analgesic; Z86.73 Personal history of transient ischemic attack (TIA), and cerebral infarction without residual deficits; Z85.828 Personal history of other malignant neoplasm of skin; Z79.4 Long term (current) use of insulin
CPT/HCPCS: 31625; 36415; 71045; 71250; 71275; 80048; 80053; 80202; 82565; 82962; 83880; 84443; 84484; 85025; 85379; 85610; 85730; 87040; 87070; 87205; 87426; 87804; 93005; 93306; 94640; 94667; 94668; 97110; 97116; 97163; 97530; 99291; G0378; J0171; J1815; J2250; J2405; J2543